=== PATIENT | female | born 1945 | race Caucasian/White ===

== ENCOUNTER 2018-08-28 09:24 | Inpatient (IN) | payer OTHER ==
--- OUTSIDE RECORDS SUMMARY | 2018-08-28 10:43 | XMS REPORT | Continuity of Care Document ---
:1945 Author Organization Interface Problems Problem Status Onset Classification Date Comments Source Date Reported 600 UNITS Active 05/26/20 [facility] 18 500 UNITS Active 11/26/19 [facility] 18 Cramp and spasm 11/05/19 02/06/2018 [facility] 18 REFILL 2000/40ML Active 11/01/19 [facility] AD: 05/05/18 18 Other muscle 08/29/19 12/02/2017 [facility] spasm 18 REFILL 2000/40ML Active 05/16/20 [facility] AD: 11/13/17 17 BOTOX 600 UNITS Active 02/12/20 [facility] 17 5 WEEK F/U Active 11/13/19 [facility] 17 2000/40 Active 11/12/19 [facility] (07/11/2017) 17 4 MONTH F/U Active 11/06/19 [facility] 17 F/U Active 06/04/20 [facility] 16 500 UNITS BOTOX Active 05/11/20 [facility] 16 2000/40 Active 11/14/19 [facility] 16 2000/40ML Active 05/08/20 [facility] 15 600 U Active 07/12/20 [facility] 14 500/40ML Active 04/22/20 [facility] 14 EVAL Active 02/27/20 [facility] 14 PUMP REFILL Active 01/05/20 [facility] 14 500/40 Active 10/31/19 [facility] 14 NEED FACE TO Active 10/19/19 [facility] FACE WC 14 EVAL/FORMER TAS 300 UNITS Active 08/31/19 [facility] 14 POST D/C F/U Active 02/29/20 [facility] APPT - NO ORDERS 13 WRITTEN 400 UNITS Active 01/26/20 [facility] 13 BRAIN INJURY Active 01/19/20 [facility] 13 SPASTICITY Active 12/12/19 [facility] 13 ITB TRIAL Active 08/23/19 [facility] 13 Anxiety Active 08/01/19 Problem 08/27/2018 [facility] 13 OPID [place] Irregular heart Active 08/01/19 Problem 08/27/2018 [facility] beat 13 OPID [place] Skin allergy Resolved 08/01/19 Problem 08/27/2018 [facility] 13 OPID [place] Urinary tract Active 08/01/19 Problem 08/27/2018 [facility] infection 13 OPID [place] Anxiety Active 08/01/19 Problem 03/04/2013 [facility] 13 Irregular heart Active 08/01/19 Problem 03/04/2013 [facility] beat 13 Skin allergy Resolved 08/01/19 Problem 03/04/2013 [facility] 13 Urinary tract Active 08/01/19 Problem 03/04/2013 [facility] infection 13 UNITS Active 09/06/19 [facility] 12 FU Active 08/27/19 [facility] 12 Neurogenic Active 01/22/20 Problem 08/27/2018 [facility] bladder 09 OPID [place] NEUROGENIC Active 12/31/19 [facility] BLADDER 09 W/INCONTINENCE ANOXIC BRAIN Active 08/01/19 [facility] INJURY 342.1 01 WHEELCHAIR FINAL Active 08/01/19 [facility] FITTING 01 Anoxic brain Active Problem 08/27/2018 [facility] injury OPID [place] Back pain Active Problem 08/27/2018 [facility] OPID [place] Cardiac arrest Resolved Problem 08/27/2018 [facility] OPID [place] Fibroids Resolved Problem 08/27/2018 [facility], OPID [place] Incontinence Active Problem 08/27/2018 [facility], OPID [place] Migraine Active Problem 08/27/2018 [facility] OPID [place] Major depressive Active Problem 08/27/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[facility] disorder, OPID recurrent, [place] moderate Pneumonia Resolved Problem 08/27/2018 [facility] OPID [place] Sleep apnea Resolved Problem 08/27/2018 [facility] OPID [place] Spasticity Active Problem 08/27/2018 [facility] OPID [place] Weakness Active Problem 08/27/2018 [facility], OPID [place] Unspecified 02/06/2018 [facility] intracranial injury without loss of consciousness, sequela Anoxic brain 12/02/2017 [facility] damage, not elsewhere classified 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 Anoxic brain Active Problem 03/04/2013 [facility] injury Back pain Active Problem 03/04/2013 [facility] Cardiac arrest Resolved Problem 03/04/2013 [facility] Fibroids Resolved Problem 03/04/2013 [facility] Incontinence Active Problem 03/04/2013 [facility] Migraine Active Problem 03/04/2013 [facility] Pneumonia Resolved Problem 03/04/2013 [facility] Weakness Active Problem 03/04/2013 [facility] Sleep apnea Resolved Problem 03/04/2013 [facility] SPASM OF MUSCLE Active [facility] ABN INVOLUN Active [facility] MOVEMENT NEC BRAIN INJURY NEC Active [facility] ANOXIC BRAIN Active [facility] DAMAGE NEUROGENIC Active [facility] BLADDER NOS FOLLOW-UP EXAM Active [facility] NOS SYMBOLIC Active [facility] DYSFUNCTION NEC PARAPLEGIA NOS Active [facility] DEPRESSIVE Active [facility] DISORDER NEC OTHER MUSCLE Active [facility] SPASM OTHER ABNORMAL Active [facility] INVOLUNTARY MOVEMENTS ANOXIC BRAIN Active [facility] DAMAGE, NOT ELSEWHERE CLASS MAJOR DEPRESSIVE Active [facility] DISORDER, SINGLE EPISOD CRAMP AND SPASM Active [facility] ANXIETY Active [facility] DISORDER, UNSPECIFIED ANXIETY DISORDER Active [facility] DUE TO KNOWN PHYSIOLOGI Medications Medication Details Route Status Patient Ordering Order Source Instructions Provider Date Botulinum Toxin 600 unit, Inactive 08/25/ [facility] Type A Route: IM, 2018 ONCALL, Dosing Weight 64.091, kg, Start date: 08/25/18 12:00:00 HEAD BUYER TOBACCO, Duration: 30 day, Stop date: 09/24/18 11:59:00 [employer] BU[employer] TOBACCO Baclofen 2 MG/ML 408.4 Active 12/09/ [facility] Injection mcg/day, 2018 INTRATHECAL, Continuous, 0 Refill(s) Botulinum Toxin 600 unit, Inactive 08/26/ [facility] Type A Route: IM, 2017 ONCALL, Dosing Weight 66.818, kg, Start date: 08/26/17 11:00:00 HEAD BUYER TOBACCO, Duration: 30 day, Stop date: 09/25/17 10:59:00 HEAD BU[employer]ER TOBACCO Botulinum Toxin 600 unit, Inactive 05/23/ [facility] Type A Route: IM, 2016 ONCALL, Dosing Weight 67.727, kg, Start date: 05/23/17 15:00:00 CDT, Duration: 30 day, Stop date: 06/22/17 13:59:00 [employer] TOBACCO escitalopram 10 10 mg=1 tab, Active 05/23/ [facility] mg oral tablet PO, Daily, # 2016 90 tab, 0 Refill(s) darifenacin 15 15 mg=1 tab, Active 05/23/ [facility] mg oral tablet, PO, Daily, # 2017 extended release 90 tab, 0 Refill(s) escitalopram 10 10 mg=1 tab, No Longer 02/22/ [facility] mg oral tablet PO, Daily, # Active 2016 90 tab, 3 Refill(s), Pharmacy: [facility] Botulinum Toxin 600 unit, Inactive [facility] Type A Route: IM, 2016 ONCALL, Dosing Weight 70.455, kg, Start date: 02/11/17 11:00:00 CDT, Duration: 30 day, Stop date: 03/13/17 10:59:00 CDT darifenacin 7.5 7.5 mg=1 Active [facility] mg oral tablet, tab, PO, 2017 extended release BID, # 30 tab, 0 Refill(s) oxybutynin 10 mg 10 mg=1 tab, Active [facility] oral tablet, PO, Daily, 0 2016 extended release Refill(s) Botulinum Toxin 500 unit, Inactive [facility] Type A Route: IM, 2016 ONCALL, Dosing Weight 70.455, kg, Start date: 11/12/16 11:00:00 CDT, Duration: 30 day, Stop date: 12/12/16 10:59:00 CDT levothyroxine 50 50 Active [facility] mcg (0.05 mg) microgram=1 2017 oral tablet tab, PO, Daily, # 30 tab, 0 Refill(s) oxybutynin 15 mg 15 mg=1 tab, Active [facility] oral tablet, PO, Daily, # 2017 extended release 30 tab, 0 Refill(s) Escitalopram 10 10 mg=1 tab, Active 08/14/ [facility] MG Oral Tablet PO, Daily, # 2017 [Lexapro] 90 tab, 1 Refill(s), Pharmacy: [facility] Escitalopram 10 10 mg=1 tab, No Longer 08/13/ [facility] MG Oral Tablet PO, Daily, # Active 2017 [Lexapro] 90 tab, 0 Refill(s), Pharmacy: [facility] Botulinum Toxin 500 unit, Inactive [facility] Type A Route: IM, 2016 ONCALL, Dosing Weight 70.455, kg, Start date: 08/13/16 11:00:00 HEAD BUYER TOBACCO, Duration: 30 day, Stop date: 09/12/16 10:59:00 HEAD BUYER TOBACCO Divalproex 125 mg=1 Active [facility] Sodium 125 MG tab, PO, 2016 Enteric Coated BID, # 60 Tablet tab, 2 Refill(s), Pharmacy: [facility] Divalproex 250 mg=1 Active [facility] Sodium 250 MG tab, PO, 2015 Enteric Coated BID, # 180 Tablet tab, 2 Refill(s), Pharmacy: [facility] [place] Claritin 10 mg, PRN, Active [facility] 0 Refill(s) 2015 Aleve Caplet 220 mg, PO, Active [facility] PRN, 0 2015 Refill(s) Botulinum Toxin 600 unit, Inactive [facility] Type A Route: IM, 2015 ONCJULIA, Dosing Weight 64.091, kg, Start date: 05/10/16 16:00:00 CDT, Duration: 30 day, Stop date: 06/09/16 14:59:00 HEAD BUYER TOBACCO onabotulinumtoxi 600 unit, Inactive [facility] nA Route: IM, 2015 ONCALL, Dosing Weight 57.273, kg, Start date: 02/06/16 12:00:00 CDT, Duration: 30 day, Stop date: 03/07/16 11:59:00 CDT Escitalopram 10 10 mg=1 tab, Active [facility] MG Oral Tablet PO, Daily, # 2016 [Lexapro] 90 tab, 2 Refill(s), Pharmacy: [facility] Divalproex 250 mg=1 Active [facility] Sodium 250 MG tab, PO, 2016 Enteric Coated BID, # 180 Tablet tab, 2 Refill(s), Pharmacy: [facility] atorvastatin 20 20 mg=1 tab, Active 02/05/ [facility] mg oral tablet PO, Bedtime, 2016 # 30 tab, 0 Refill(s) amantadine 100 100 mg=1 Active [facility] mg oral capsule cap, PO, 2016 Daily, # 90 cap, 4 Refill(s), Pharmacy: [facility] Divalproex 250 mg=1 Active [facility] Sodium 250 MG tab, PO, 2016 Enteric Coated BID, # 180 Tablet tab, 2 Refill(s), Pharmacy: [facility] Escitalopram 10 10 mg=1 tab, Active [facility] MG Oral Tablet PO, Daily, # 2016 [Lexapro] 90 tab, 2 Refill(s), Pharmacy: [facility] Alprazolam 0.25 0.25 mg=1 Active [facility] MG Oral Tablet tab, PO, PRN 2015 anxiety, stress, # 1 tab, 0 Refill(s) onabotulinumtoxi 600 unit, Inactive [facility] nA Route: IM, 2015 ONCALL, Dosing Weight 55.455, kg, Start date: 10/31/15 11:00:00, Duration: 30 day, Stop date: 11/30/15 10:59:00 onabotulinumtoxi 600 unit, Inactive [facility] nA Route: IM, 2014 ONCALL, Dosing Weight 55.455, kg, Start date: 07/18/15 10:00:00, Duration: 30 day, Stop date: 08/17/15 9:59:00 Alprazolam 0.25 0.25 mg=1 No Longer [facility] MG Oral Tablet tab, PO, Active 2014 [Xanax] Daily, PRN as needed for anxiety, Give before next botulinum toxin injections., # 5 tab, 0 Refill(s) Escitalopram 10 10 mg=1 tab, Active [facility] MG Oral Tablet PO, Daily, # 2015 [Lexapro] 90 tab, 2 Refill(s), Pharmacy: [facility] Divalproex 250 mg=1 Active [facility] Sodium 250 MG tab, PO, 2015 Enteric Coated BID, # 180 Tablet tab, 2 Refill(s), Pharmacy: [facility] amantadine 100 100 mg=1 Active [facility] mg oral capsule cap, PO, 2015 Daily, # 90 cap, 2 Refill(s), Pharmacy: [facility] onabotulinumtoxi 600 unit, Inactive [facility] nA Route: IM, 2014 ONCALL, Dosing Weight 58.182, kg, Start date: 04/18/15 10:00:00, Duration: 30 day, Stop date: 05/18/15 9:59:00 donepezil 10 mg 10 mg=1 tab, Active [facility] oral tablet PO, Daily, # 2015 30 tab, 2 Refill(s), Pharmacy: [facility] onabotulinumtoxi 600 unit, Inactive [facility] nA Route: IM, 2014 ONCALL, Dosing Weight 61.818, kg, Start date: 01/10/15 16:00:00, Duration: 30 day, Stop date: 02/09/15 15:59:00 onabotulinumtoxi 600 unit, Inactive [facility] nA Route: IM, 2014 ONCALL, Dosing Weight 61.364, kg, Start date: 10/11/14 11:00:00, Duration: 30 day, Stop date: 11/10/14 10:59:00 donepezil 5 mg 5 mg=1 tab, Active [facility] oral tablet PO, Daily, # 2015 90 tab, 2 Refill(s), Pharmacy: [facility] divalproex 250 mg=1 Active [facility] sodium 250 mg tab, PO, 2014 oral enteric BID, # 180 coated tablet tab, 2 Refill(s), Pharmacy: [facility] amantadine 100 100 mg=1 Active [facility] mg oral capsule cap, PO, 2015 Daily, # 90 cap, 2 Refill(s), Pharmacy: [facility] Escitalopram 10 10 mg=1 tab, Active [facility] MG Oral Tablet PO, Daily, # 2015 [Lexapro] 90 tab, 2 Refill(s), Pharmacy: [facility] oxybutynin 10 mg 10 mg=1 tab, Active [facility] oral tablet, PO, Daily, # 2015 extended release 30 tab, 0 Refill(s) divalproex 250 mg=1 Inactive [facility] sodium 250 mg tab, PO, 2015 oral enteric BID, # 90 coated tablet tab, 0 Refill(s) onabotulinumtoxi 500 unit, Inactive [facility] nA Route: IM2013 Drug form: INJ, ONCALL, Dosing Weight 57.273, kg, Start date: 07/12/14 10:00:00, Duration: 30 day, Stop date: 08/11/14 9:59:00Notes : "TO BE RECONSTITUTE D AND ADMINISTERED ONLY BY A PHYSICIAN" Reconstitute with preservative free NS only. Stability=4 hours after reconstituti on. (Same As: Botox) donepezil 5 mg 5 mg=1 tab, Active 06/21/ [facility] oral tablet PO, Daily, # 2013 90 tab, 2 Refill(s), Pharmacy: [facility]/pharmacy #[id number] Escitalopram 10 10 mg=1 tab, Active [facility] MG Oral Tablet PO, Daily, # 2013 [Lexapro] 90 tab, 3 Refill(s), Pharmacy: [facility]/pharmacy #[id number] donepezil 5 mg 5 mg=1 tab, Active 04/05/ [facility] oral tablet PO, Daily, # 2013 30 tab, 1 Refill(s), Pharmacy: [facility]/pharmacy #[id number] divalproex 500 mg=1 Active [facility] sodium 500 mg tab, PO, 2013 oral enteric BID, # 180 coated tablet tab, 3 Refill(s), Pharmacy: [facility]/pharmacy #[id number] sodium chloride 20 mL, Inactive [facility] [place] [facility] Start date: 04/05/14 10:00:00, Duration: 1 doses or timesNotes: preservative free. onabotulinumtoxi 600 unit, Inactive [facility] nA Route: IM2013 Drug form: INJ, ONCALL, Dosing Weight 57.273, kg, Start date: 04/05/14 10:00:00, Duration: 1 doses or timesNotes: "TO BE RECONSTITUTE D AND ADMINISTERED ONLY BY A PHYSICIAN&qu ot; Reconstitute with preservative free NS only. Stability=4 hours after reconstituti on. (Same As: Botox) Pass through med: charges in 1 unit increments. donepezil 5 mg 5 mg, PO, Inactive 04/05/ [facility] oral tablet Daily, # 30 2013 tab, 0 Refill(s) darifenacin 7.5 7.5 mg=1 Active 03/28/ [facility] mg oral tablet, tab, PO, 2013 extended release Daily, # 30 tab, 0 Refill(s) divalproex 500 mg, PO, Active 02/13/ [facility] sodium delayed BID, 0 2014 release Refill(s) Escitalopram 20 20 mg=1 tab, Active 02/13/ [facility] MG Oral Tablet PO, Daily, # 2014 [Lexapro] 30 tab, 0 Refill(s) Escitalopram 20 20 mg=1 tab, Active 01/04/ [facility] MG Oral Tablet PO, Daily, # 2014 [Lexapro] 30 tab, 3 Refill(s) pravastatin 40 40 mg=1 tab, Active 01/04/ [facility] mg oral tablet PO, Bedtime, 2013 # 30 tab, 0 Refill(s) LORAzepam 0.5 mg 0.25 mg, 0.5 PO Active [place] 03/02/ [facility] oral tablet tab, PO, 2012 Bedtime, 15 tab, Substitution Allowed LORAzepam 0.5 mg 0.5 mg, 1 PO Active [place] 03/02/ [facility] oral tablet tab, PO, 2012 QAM, 30 tab, Substitution Allowed acetaminophen 650 mg, 2 PO Active [place] 03/02/ [facility] 325 mg oral tab, PO, 2012 tablet Q4H, PRN, 168 tab, as needed for pain, Substitution Allowed, TAB senna 8.6 mg 25.8 mg, 3 PO Active [place] 03/02/ [facility] oral tablet tab, PO, 2012 Daily, PRN, 90 tab, Constipation , Substitution Allowed, Maintenance, TAB fexofenadine 60 180 mg, 3 PO Active [place] 03/02/ [facility] mg oral tablet tab, PO, 2012 Daily, 90 tab, Substitution Allowed, TAB atorvastatin 20 10 mg, 0.5 PO Active [place] 03/02/ [facility] mg oral tablet tab, PO, 2012 Bedtime, 15 tab, Substitution Allowed, TAB amantadine 100 100 mg, 1 PO Active [place] 03/02/ [facility] mg oral capsule cap, PO, 2012 BID-02-09, 60 cap, Substitution Allowed, CAP Vitamin B 1 cap, PO, PO Active [place] 03/02/ [facility] Complex oral Daily, 30 2012 capsule cap, Substitution Allowed, Maintenance, CAP LORAzepam 0.5 mg 0.25 mg, 0.5 PO No Longer [place]ago[place]lov[place] 03/02/ [facility] oral tablet tab, PO, Active 2012 BID, 30 tab, Substitution Allowed, TAB Estrace Vaginal 1 appl, TOP, TOP Active Dragojlov[place] 03/02/ [facility] Cream 0.1 mg/g Every Other 2012 Day, 30 gm, Substitution Allowed, CRM escitalopram 20 10 mg, 0.5 PO Active Drago[place]lov[place] 03/02/ [facility] mg oral tablet tab, PO, 2012 Bedtime, 15 tab, Substitution Allowed, TAB docusate sodium 100 mg, 1 PO Active Dr[place] 03/02/ [facility] 100 mg oral cap, PO, 2012 capsule BID, 60 cap, Substitution Allowed, CAP baclofen 0.5 151.68 mcg, INTRATHECA Active Dragojlovic 03/02/ [facility] mg/mL INTRATHECAL, L 2012 intrathecal Continuous, solution PRN, 1 unit, Other -See Comment, Substitution Allowed, INJ Ativan 0.25 mg, 0.5 PO No Longer [place] 02/25/ [facility] tab, Route: Active 2012 PO, Drug form: TAB, Daily, Dosing Weight 51.818, kg, PRN as needed for anxiety, Start date: 02/25/13 9:43:00, Duration: 30 day, Stop date: 03/27/13 9:42:00 [place] 24 Hour 180 mg, 3 PO No Longer [place] 02/23/ [facility] Allergy tab, Route: Active 2012 PO, Drug form: TAB, Daily, Dosing Weight 51.818, kg, Start date: 02/23/13 8:30:00, Duration: 60 day, Stop date: 04/23/13 8:30:00 mirabegron mirabegron, PO No Longer [place] 02/21/ [facility] 25 mg, Active 2012 Route: PO, Daily, 02/21/13 8:30:00, Duration: 90 day, Stop date: 05/21/13 8:30:00 amantadine 100 mg, 1 PO No Longer [place] 02/20/ [facility] cap, Route: Active 2012 PO, Drug form: CAP, BID-02-09, Dosing Weight 51.818, kg, Start date: 02/20/13 12:00:00, Duration: 60 day, Stop date: 04/21/13 7:00:00 BD Normal Saline 10 mL, IV No Longer [place] [facility] Flush Route: IV, Active 2012 Drug Form: INJ, PRN, PRN Line Flush, Start date: 02/19/13 15:54:00, Duration: 60 day, Stop date: 04/20/13 15:53:00 senna 8.6 mg 25.8 mg, 3 PO No Longer [place] [facility] oral tablet tab, Route: Active 2012 PO, Drug Form: TAB, Dosing Weight 51.818, kg, Daily, PRN Constipation , Start date: 02/18/13 11:25:00, Duration: 90 day, Stop date: 05/19/13 11:24:00 Claritin 10 mg, 1 PO No Longer [place] [facility] tab, Route: Active 2012 PO, Drug form: TAB, Daily, Dosing Weight 51.818, kg, Start date: 02/18/13 8:30:00, Duration: 90 day, Stop date: 05/18/13 8:30:00 bisacodyl 10 mg, 1 VA No Longer [place] [facility] supp, Route: Active 2012 VA, Drug form: SUPP, ONCE, Dosing Weight 51.818, kg, Start date: 02/16/13 13:29:00, Stop date: 02/16/13 13:29:00 amantadine 100 mg, 1 PO No Longer [place] [facility] cap, Route: Active 2012 PO, Drug form: CAP, Daily, Dosing Weight 51.818, kg, Start date: 02/16/13 8:30:00, Duration: 60 day, Stop date: 04/16/13 8:30:00 docusate sodium 100 mg, 1 PO No Longer [place] [facility] 100 mg oral cap, Route: Active 2012 capsule PO, Drug form: CAP, BID, Dosing Weight 51.818, kg, Start date: 02/15/13 22:01:00, Duration: 90 day, Stop date: 05/16/13 21:00:00 [place] 5/325 oral 1 tab, PO No Longer [place] [facility] tablet Route: PO, Active 2012 Drug Form: TAB, Dosing Weight 51.818, kg, Q6H, PRN Pain Score 6-10, Start date: 02/15/13 13:53:00, Duration: 30 day, Stop date: 03/17/13 13:52:00 senna 8.6 mg 8.6 mg, 1 PO No Longer [place] [facility] oral tablet tab, Route: Active 2012 PO, Drug Form: TAB, Dosing Weight 51.818, kg, Daily, PRN Constipation , Start date: 02/15/13 9:06:00, Duration: 90 day, Stop date: 05/16/13 9:05:00 amantadine 100 mg, 1 PO No Longer [place] [facility] cap, Route: Active 2012 PO, Drug form: CAP, QAM, Dosing Weight 51.818, kg, Start date: 02/15/13 6:30:00, Duration: 60 day, Stop date: 04/15/13 6:30:00 [place] 5/325 oral 1 tab, PO No Longer [place] [facility] tablet Route: PO, Active 2012 Drug Form: TAB, Dosing Weight 51.818, kg, ONCE, Start date: 02/14/13 22:55:00, Stop date: 02/14/13 22:55:00 Claritin 10 mg, 1 PO No Longer [place] [facility] tab, Route: Active 2012 PO, Drug form: TAB, Daily, Dosing Weight 51.818, kg, Start date: 02/14/13 18:30:00, Duration: 90 day, Stop date: 05/15/13 8:30:00 Tylenol 650 mg, 2 PO No Longer [place] [facility] tab, Route: Active 2012 PO, Drug form: TAB, Q4H, Dosing Weight 51.818, kg, PRN Pain Score 1-5, Start date: 02/13/13 21:14:00, Duration: 60 day, Stop date: 04/14/13 21:00:00 Lexapro 10 mg, 0.5 PO No Longer [place] 02/14/ [facility] tab, Route: Active 2012 PO, Drug form: TAB, Bedtime, Dosing Weight 51.818, kg, Start date: 02/13/13 21:00:00, Duration: 90 day, Stop date: 05/13/13 21:00:00 Estrace Vaginal 1 appl, TOP No Longer [place] 02/14/ [facility] Cream 0.1 mg/g Route: TOP, 2012 Drug form: CRM, Every Other Day, Dosing Weight 51.818, kg, Start date: 02/13/13 21:00:00, Duration: 90 day, Stop date: 05/12/13 21:00:00 pravastatin 40 mg, PO No Longer [place] 02/13/ [facility] Route: PO, Active 2012 Drug form: TAB, Daily, Dosing Weight 51.818, kg, Start date: 02/13/13 8:30:00, Duration: 90 day, Stop date: 05/13/13 8:30:00 B Complex 100 1 tab, PO No Longer [place] 02/13/ [facility] Route: PO, Active 2012 Drug Form: TAB, Dosing Weight 51.818, kg, Daily, Start date: 02/13/13 8:30:00, Duration: 90 day, Stop date: 05/13/13 8:30:00 Lexapro 10 mg, 0.5 PO No Longer [place] 02/13/ [facility] tab, Route: Active 2012 PO, Drug form: TAB, Daily, Dosing Weight 51.818, kg, Start date: 02/13/13 8:30:00, Duration: 90 day, Stop date: 05/13/13 8:30:00 baclofen 90.04 INTRATHECA No Longer [place] 02/13/ [facility] mcg/day, L Active 2012 Route: INTRATHECAL, Drug form: INJ, Daily, Dosing Weight 51.818, kg, Start date: 02/13/13 8:30:00, Duration: 90 day, Stop date: 05/13/13 8:30:00 Ativan 0.25 mg, 0.5 PO No Longer [place] 02/13/ [facility] tab, Route: Active 2012 PO, Drug form: TAB, BID, Dosing Weight 51.818, kg, Start date: 02/12/13 22:00:00, Duration: 90 day, Stop date: 05/13/13 21:00:00 Lipitor 10 mg, 0.5 PO No Longer [place] [facility] tab, Route: Active 2012 PO, Drug form: TAB, Bedtime, Start date: 02/12/13 21:00:00, Duration: 90 day, Stop date: 05/12/13 21:00:00 mirtazapine 7.5 mg, 0.5 PO No Longer [place] [facility] tab, Route: Active 2012 PO, Drug form: TAB, Bedtime, Dosing Weight 51.818, kg, Start date: 02/12/13 21:00:00, Duration: 90 day, Stop date: 05/12/13 21:00:00 metoprolol 12.5 mg, 0.5 PO No Longer Dragojlov[place] [facility] tartrate tab, Route: Active 2012 PO, Drug form: TAB, Q12H, Dosing Weight 51.818, kg, Start date: 02/12/13 21:00:00, Duration: 60 day, Stop date: 04/14/13 9:00:00 Ativan 0.5 mg, 1 PO No Longer [place] [facility] tab, Route: Active 2012 PO, Drug form: TAB, BID, Dosing Weight 51.818, kg, Start date: 02/12/13 21:00:00, Duration: 90 day, Stop date: 05/13/13 8:30:00 calcium-vitamin 2 tab, CHEW No Longer [place] [facility] D 500 mg-400 Route: CHEW, Active 2012 intl units oral Drug Form: tablet, chewable CHEWTAB, Dosing Weight 51.818, kg, BID, Start date: 02/12/13 21:00:00, Duration: 90 day, Stop date: 05/13/13 8:30:00 baclofen Route: INTRATHECA No Longer [place] [facility] INTRATHECAL, L Active 2012 Drug form: INJ, Continuous, PRN Other -See Comment, Start date: 02/12/13 18:16:00, Stop date: 04/13/13 18:15:00 docusate sodium 100 mg, 1 PO No Longer [place] 07/15/ [facility] 100 mg oral cap, Route: 2012 capsule PO, Drug form: CAP, Every Other Day, Dosing Weight 51.818, kg, PRN as needed for constipation , Start date: 02/12/13 16:01:00, Duration: 90 day, Stop date: 05/13/13 16:00:00 Claritin 10 mg, 1 PO No Longer [place] 02/12/ [facility] tab, Route: 2012 PO, Drug form: TAB, Daily, Dosing Weight 51.818, kg, PRN as needed for allergy symptoms, Start date: 02/12/13 12:32:00, Duration: 90 day, Stop date: 05/13/13 12:31:00 mirtazapine 7.5 7.5 mg, 1 PO No Longer [place] 02/12/ [facility] mg oral tablet tab, PO, 2012 Bedtime, 30 tab, Substitution Allowed, TAB Claritin 10 mg 10 mg, 1 PO No Longer [place] 02/12/ [facility] oral tablet tab, PO, 2012 Daily, PRN, 90 tab, as needed for allergy symptoms, Substitution Allowed, TAB B-Complex SR Substitution No Longer [place] 02/12/ [facility] oral tablet, Allowed, 2012 extended release Maintenance phenytoin 777.27 mg, IVP No Longer [place] 02/12/ [facility] 15.55 mL, 2012 Route: IVP, Drug form: INJ, PRN, Dosing Weight 51.818, kg, PRN Seizure, Start date: 02/12/13 12:20:00, Duration: 60 day, Stop date: 04/13/13 12:19:00 LORAzepam 2 mg, 1 mL, IVP No Longer [place] 02/12/ [facility] Route: IVP, 2012 Drug form: INJ, PRN, Dosing Weight 51.818, kg, PRN Seizure, Start date: 02/12/13 12:20:00, Duration: 60 day, Stop date: 04/13/13 12:19:00 phenobarbital 1,036.36 mg, IVP No Longer [place] 02/12/ [facility] 15.94 mL, 2012 Route: IVP, Drug form: INJ, PRN, Dosing Weight 51.818, kg, PRN Seizure, Start date: 02/12/13 12:20:00, Duration: 60 day, Stop date: 04/13/13 12:19:00 docusate sodium 100 mg, PO, PO Active [facility] 100 mg oral BID, PRN, 20 2012 capsule cap, Constipation , Substitution Allowed Ativan 0.5 mg BID, Active [facility] oral tablet Substitution 2012 Allowed metoprolol 25 mg 25 mg, 1 PO Active [facility] oral tablet tab, PO, 2012 BID, 180 tab, Substitution Allowed, TAB pravastatin 20 20 mg, 1 PO Active [facility] mg oral tablet tab, PO, 2012 Daily, 30 tab, Substitution Allowed, TAB mirtazapine 7.5 PO, Bedtime, PO Active [facility] mg oral tablet Substitution 2011 Allowed Estrace Vaginal TOP, Every TOP Active [facility] Cream 0.1 mg/g Other Day, 2011 Substitution Allowed Detrol LA 4 mg 4 mg, 1 cap, PO Active [facility] oral capsule, PO, Daily, 2011 extended release 30 cap, Substitution Allowed Toviaz 4 mg, Active [facility] Substitution 2011 Allowed, once a dayonce a day Flomax 0.4 mg 0.4 mg, 1 PO Active [facility] oral capsule cap, PO, 2011 Daily, 90 cap, Substitution Allowed, CAP Unknown Home Substitution Active [facility] Medication Allowed 2011 cranberry oral Substitution Active [facility] capsule Allowed, 2011 Maintenance VESIcare 5 mg 5 mg, 1 tab, PO Active [facility] oral tablet PO, Daily, 2011 90 tab, Substitution Allowed, TAB Lexapro 10 mg 10 mg, 1 PO No Longer Tastard [facility] oral tablet tab, PO, Active 2011 Daily, 90 tab, 4, 4, Substitution Allowed, TAB Lexapro 10 mg 10 mg, 1 PO Active [facility] oral tablet tab, PO, 2011 Daily, 90 tab, Substitution Allowed, TAB LORAzepam Substitution Active [facility] Allowed 2011 LORAzepam 0.5 mg 0.5 mg, 1 PO No Longer [facility] oral tablet tab, PO, Active 2011 TID, PRN, Anxiety, Substitution Allowed, TAB Cymbalta 30 mg 30 mg, 1 PO No Longer Tastard [facility] oral delayed cap, PO, Active 2011 release capsule Daily, 7 cap, Substitution Allowed Nuedexta oral 1 cap, PO, PO No Longer Tastard [facility] capsule Daily, 90 Active 2011 cap, 4, 4, Substitution Allowed, Maintenance carbidopa-levodo 1 tab, PO, PO Active 08/27/ [facility] pa 50 mg-200 mg BID, 90 tab, 2011 oral tablet, Substitution extended release Allowed, Maintenance Risperdal 0.25 PO, 30, 10, PO Active 04/20/ [facility] mg oral tablet Substitution 2010 Allowed Allergies, Adverse Reactions, Alerts Substance Category Reaction Severity Reaction Status Date Comments Source type Reported Immunizations Immunization Date Given Site Status Last Updated Comments Source Results Order Name Results Value Reference Date Interpretation Comments Source Range Brain wo Brain wo Patient Name: GINGER FUENTES 01/12 - OPID contrast contrast MRI /2016 - [facility] : 1945; Age: 71 years y/o Female MR: [id number] Read by: Luther Hartman MD Dictated Date/time: 01/12/17 15:01 Electronically Signed by: Luther Hartman MD 01/12/17 17:12 FINAL REPORT Study: Brain wo contrast MRI 01/12/2017 1:14 PM CDT Ordering Physician: Felix Hanson MD Clinical Indication: 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 CONTRAST: None FINDINGS: BRAIN PARENCHYMA: The brain parenchyma has normal signal with normal garnett- white junction, sulci, and gyri. There is no mass effect or midline shift. There is no extra-axial fluid collection or intrapare nchymal hemorrhage. The corpus callosum appears normal. The white matter, basal ganglia, and posterior fossa, including the brainstem, demonstrate mild to moderate chronic small vessel changes. There is no diffusion weighted imaging or ADC map abnormality to suggest acute/ subacute ischemia. There is no magnetic susceptibility to suggest recent or remote intracranial hemorrhage. CEREBELLOPONTINE REGIONS AND SKULL BASE: The cerebellopontine angles appear unremarkable. The skull base, craniocervical junction, and brainstem are normal. The optic chiasm is normal. The sellar and pineal regions are unremarkable. VENTRICLES: CSF spaces are moderately atrophic. The lateral ventricles, third and fourth ventricles appear unremarkable. The basilar cisterns are normal. VESSELS: The venous sinuses are grossly unremarkable. The expected intracranial flow voids are present. ORBITS, VISUALIZED PARANASAL SINUSES AND MASTOIDS: The visualized orbits are unremarkable. The paranasal sinuses Are unremarkable The mastoid air cells are clear. IMPRESSION: Unremarkable for acute change noncontrast MRI of the brain without stroke, hemorrhage or mass. Moderate atrophy and chronic small vessel ischemic change in the deep structures. There are no intracranial fluid collections. The corticomedullary junction is intact. SL: [id number] Abdomen AP Abdomen AP ABDOMEN RADIOGRAPH ONE VIEW 08/13/2016 AT 1150 HOURS. 08/13 - [facility] DX DX /2016 - CLINICAL HISTORY: Constipation. Assess stool burden. Read by: Vicente Salazar MD Dictated Date/time: 08/13/16 12:11 Electronically Signed by: Vicente Salazar MD 08/13/16 12:13 FINAL REPORT COMPARISON STUDIES: Abdomen CT 02/19/2013. FINDINGS: An AP view of the abdomen was obtained. Moderate volume colonic fecal material diffusely, particularly in the ascending colon with a nonobstructive bowel gas pattern. No pneumatosis or portal venous air. Limited study for free air in a supine film. An infusion pump is identified in the right lower quadrant to be correlated with history. No destructive bone lesion. Clear lung bases. Moderate bilateral SI joint, symphyseal and hip osteoarthritis. IMPRESSION: 1. Moderate volume colonic fecal material diffusely. 2. Nonobstructive bowel gas pattern. SL: [id number] Brain wo Brain wo EXAM: CT BRAIN WITHOUT CONTRAST 03/19 [facility] contrast CT contrast CT /2013 - DATE: 03/19/2014 Read by: Trav Garrido MD Dictated Date/time: 03/19/14 11:20 Electronically Signed by: Trav Garrido MD 03/19/14 11:25 FINAL REPORT INDICATION: Confusion, history of anoxic brain injury TECHNIQUE: Noncontrast axial imaging was obtained from the vertex to the skull base. COMPARISON: CT brain from 09/21/2012 FINDINGS: No hemorrhage, extra-axial collection, or mass effect. Mild prominence of the sulci and ventriculomegaly secondary to volume loss. Ventricular size is not greatly changed with respect to the prior study . Mild microangiopathic changes without evidence of acute infarction. Included paranasal sinuses and mastoid air cells are clear. IMPRESSION: No acute abnormality. Generalized volume loss. HEMATOLOGY Eosinophils 0.2 K/CMM 0.0 - 0.5 / Normal [facility] # /2012 HEMATOLOGY Monocytes # 0.6 K/CMM 0.0 - 0.8 / Normal [facility] /2012 HEMATOLOGY Basophils # 0.1 K/CMM 0.0 - 0.2 / Normal [facility] /2012 HEMATOLOGY Lymphocytes 34.0 % 20.0 - 02/26 Normal [facility] 40.0 /2012 HEMATOLOGY Monocytes 8.2 % 2.0 - 12.0 / Normal [facility] /2012 HEMATOLOGY Segs 54.0 % 45.0 - 02/26 Normal [facility] 75.0 /2012 HEMATOLOGY Segs-Bands # 4.2 K/CMM 1.5 - 8.1 02/26 Normal [facility] /2012 HEMATOLOGY Lymphocytes 2.7 K/CMM 1.0 - 5.5 02/26 Normal [facility] # /2012 HEMATOLOGY Eosinophils 2.9 % 0.0 - 4.0 / Normal [facility] /2012 HEMATOLOGY Basophils 0.9 % 0.0 - 1.0 / Normal [facility] /2012 HEMATOLOGY Hct 35.9 % 36.0 - 02/26 LOW [facility] 48.0 /2012 HEMATOLOGY MCV 91.5 fL 81.0 - 02/26 Normal [facility] 99.0 /2012 HEMATOLOGY Hgb 12.1 g/dL 12.0 - 02/26 Normal [facility] 16.0 /2012 HEMATOLOGY MCHC 33.8 g/dL 32.0 - 02/26 Normal [facility] 36.0 /2012 HEMATOLOGY MCH 30.9 pg 27.0 - 02/26 Normal [facility] 31.0 /2012 HEMATOLOGY Platelet 310 K/CMM 133 - 450 02/26 Normal [facility] /2012 HEMATOLOGY RDW 12.6 % 11.5 - 02/26 Normal [facility] 14.5 /2012 HEMATOLOGY MPV 8.2 fL 7.4 - 10.4 02/26 Normal [facility] /2012 HEMATOLOGY WBC 7.8 K/CMM 3.7 - 10.4 02/26 Normal [facility] HEMATOLOGY RBC 3.93 M/CMM 4.20 - 02/26 LOW [facility] 5.40 CHEMISTRY eGFR 102 02/21 NA 1Result Comment: The eGFR is calculated using the CKD-EPI formula. In most young, healthy individuals the eGFR will be > 90 mL/min/1.73m2. The eGFR declines with age. An eGFR of 60-89 may be normal in [facility] mL/min/1.7 some populations, particularly the elderly, for whom the CKD-EPI formula has not been extensively validated. Use of the eGFR is not recommended in the following populations: 3m2 Individuals with unstable creatinine concentrations, including patients and those with serious co-morbid conditions. Patients with extremes in muscle mass or diet. The data above are obtained from the National Kidney Disease Education Program (NKDEP) which additionally recommends that when the eGFR is used in patients with extremes of body mass index for purposes of drug dosing, the eGFR should be multiplied by the estimated BMI. CHEMISTRY Chloride Lvl 103 meq/L 95 - 109 02/21 Normal [facility] CHEMISTRY Sodium Lvl 143 meq/L 135 - 145 02/21 Normal [facility] CHEMISTRY Potassium 4.1 meq/L 3.5 - 5.1 02/21 Normal [facility] Lv CHEMISTRY Creatinine 0.5 mg/dL 0.5 - 1.4 02/21 Normal [facility] Lv CHEMISTRY Calcium Lvl 8.8 mg/dL 8.5 - 10.5 02/21 Normal [facility] CHEMISTRY CO2 33 meq/L 24 - 32 02/21 HI [facility] CHEMISTRY AGAP 11.1 meq/L 10.0 - 02/21 Normal [facility] 20.0 CHEMISTRY Glucose Lvl 104 mg/dL 70 - 99 02/21 HI 4Interpretive Data: Adult reference range values reflect the clinical guidelines [facility] of the [place] [employer]. CHEMISTRY BUN 15 mg/dL - 02/21 Normal [facility] HEMATOLOGY Basophils # 0.0 K/CMM 0.0 - 0.2 02/20 Normal [facility] HEMATOLOGY Eosinophils 0.2 K/CMM 0.0 - 0.5 02/20 Normal [facility] # /2012 HEMATOLOGY Monocytes # 0.6 K/CMM 0.0 - 0.8 02/20 Normal [facility] HEMATOLOGY Basophils 0.3 % 0.0 - 1.0 02/20 Normal [facility] HEMATOLOGY Segs-Bands # 3.8 K/CMM 1.5 - 8.1 02/20 Normal [facility] /2012 HEMATOLOGY Monocytes 7.6 % 2.0 - 12.0 02/20 Normal [facility] HEMATOLOGY Eosinophils 2.9 % 0.0 - 4.0 02/20 Normal [facility] /2012 HEMATOLOGY Segs 50.9 % 45.0 - 02/20 Normal [facility] 75.0 /2012 HEMATOLOGY Lymphocytes 38.3 % 20.0 - 02/20 Normal [facility] 40.0 HEMATOLOGY Lymphocytes 2.9 K/CMM 1.0 - 5.5 02/20 Normal [facility] # /2012 HEMATOLOGY MPV 8.3 fL 7.4 - 10.4 02/20 Normal [facility] HEMATOLOGY Hgb 12.2 g/dL 12.0 - 02/20 Normal [facility] 16.0 HEMATOLOGY RDW 12.3 % 11.5 - 02/20 Normal [facility] 14.5 HEMATOLOGY Platelet 310 K/CMM 133 - 450 02/20 Normal [facility] HEMATOLOGY MCH 30.1 pg 27.0 - 02/20 Normal [facility] 31.0 HEMATOLOGY MCHC 32.8 g/dL 32.0 - 02/20 Normal [facility] 36.0 HEMATOLOGY WBC 7.5 K/CMM 3.7 - 10.4 02/20 Normal [facility] HEMATOLOGY Hct 37.2 % 36.0 - 02/20 Normal [facility] 48.0 HEMATOLOGY MCV 91.7 fL 81.0 - 02/20 Normal [facility] 99.0 /2012 HEMATOLOGY RBC 4.06 M/CMM 4.20 - 02/20 LOW [facility] 5.40 /2012 Abdomen Abdomen w/wo EXAM: CT of the abdomen with and without contrast dated 02/19/2013. 02/19 - [facility] w/wo contrast CT /2012 - contrast CT HISTORY: Possible left renal mass on ultrasound. Read by: Alan Machado Dictated Date/time: 02/20/13 08:20 Electronically Signed by: Alan Machado MD 02/20/13 08:32 FINAL REPORT COMPARISON: 02/15/2013. TECHNIQUE: Pre and multiphase postcontrast axial images through the abdomen , with sagittal and coronal reformats. FINDINGS: The lung bases show atelectatic changes. A calcified granuloma is noted at the left lung base. Evaluation of the abdomen is slightly suboptimal due to extensive streaking from a right-sided baclofen pump (). Precontrast images show a punctate nonobstructing calculus at the upper pole of the left kidney (). Postcontrast, there is homogeneous enhancement of the bilateral kidneys without evidence of a foca l mass lesion. 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 Delayed images show satisfactory bilateral renal excretion without filling de fects in the opacified collecting systems and the visualized proximal ureters. The visualized liver, gallbladder and biliary system, adrenals, pancreas ( except for mild proximal fatty change) and spleen are unremarkable. The stomach and the visualized bowel and are within normal limits. There are no acute skeletal findings. IMPRESSION: 1. No renal mass identified. Abnormality noted on the prior study most likely presents a dromedary hump. CHEMISTRY AGAP 11.2 meq/L 10.0 - 02/19 Normal [facility] 20.0 CHEMISTRY eGFR 110 02/19 NA 2Result Comment: The eGFR is calculated using the CKD-EPI formula. In most young, healthy individuals the eGFR will be > 90 mL/min/1.73m2. The eGFR declines with age. An eGFR of 60-89 may be normal in [facility] mL/min/1. some populations, particularly the elderly, for whom the CKD-EPI formula has not been extensively validated. Use of the eGFR is not recommended in the following populations: 3m2 Individuals with unstable creatinine concentrations, including patients and those with serious co-morbid conditions. Patients with extremes in muscle mass or diet. The data above are obtained from the National Kidney Disease Education Program (NKDEP) which additionally recommends that when the eGFR is used in patients with extremes of body mass index for purposes of drug dosing, the eGFR should be multiplied by the estimated BMI. CHEMISTRY CO2 31 meq/L 24 - 32 02/19 Normal [facility] /2012 CHEMISTRY Potassium 4.2 meq/L 3.5 - 5.1 02/19 Normal [facility] Lvl CHEMISTRY Creatinine 0.4 mg/dL 0.5 - 1.4 02/19 LOW [facility] Lvl CHEMISTRY Sodium Lvl 142 meq/L 135 - 145 02/19 Normal [facility] CHEMISTRY BUN 17 mg/dL 7 - 22 02/19 Normal [facility] /2012 CHEMISTRY Chloride Lvl 104 meq/L 95 - 109 02/19 Normal [facility] CHEMISTRY Glucose Lvl 104 mg/dL 70 - 99 02/19 HI 5Interpretive Data: Adult reference range values reflect the clinical guidelines [facility] of the [place] [employer]. CHEMISTRY Calcium Lvl 8.4 mg/dL 8.5 - 10.5 02/19 LOW [facility] HEMATOLOGY RBC 3.73 M/CMM 4.20 - 02/19 LOW [facility] 5.40 HEMATOLOGY Hgb 11.6 g/dL 12.0 - 02/19 LOW [facility] 16.0 HEMATOLOGY MPV 8.9 fL 7.4 - 10.4 02/19 Normal [facility] HEMATOLOGY MCHC 34.0 g/dL 32.0 - 02/19 Normal [facility] 36.0 HEMATOLOGY MCH 31.1 pg 27.0 - 02/19 HI [facility] 31.0 HEMATOLOGY Platelet 270 K/CMM 133 - 450 02/19 Normal [facility] HEMATOLOGY MCV 91.2 fL 81.0 - 02/19 Normal [facility] 99.0 HEMATOLOGY WBC 7.4 K/CMM 3.7 - 10.4 02/19 Normal [facility] HEMATOLOGY RDW 12.4 % 11.5 - 02/19 Normal [facility] 14.5 HEMATOLOGY Hct 34.0 % 36.0 - 02/19 LOW [facility] 48.0 /2012 HEMATOLOGY Lymphocytes 3.0 K/CMM 1.0 - 5.5 02/19 Normal [facility] # /2012 HEMATOLOGY Basophils # 0.0 K/CMM 0.0 - 0.2 02/19 Normal [facility] HEMATOLOGY Eosinophils 0.2 K/CMM 0.0 - 0.5 02/19 Normal [facility] # HEMATOLOGY Monocytes # 0.7 K/CMM 0.0 - 0.8 02/19 Normal [facility] HEMATOLOGY Segs 47.9 % 45.0 - 02/19 Normal [facility] 75.0 /2013 HEMATOLOGY Lymphocytes 40.4 % 20.0 - 02/19 HI [facility] 40.0 /2012 HEMATOLOGY Segs-Bands # 3.5 K/CMM 1.5 - 8.1 02/19 Normal [facility] HEMATOLOGY Eosinophils 2.3 % 0.0 - 4.0 02/19 Normal [facility] HEMATOLOGY Monocytes 9.3 % 2.0 - 12.0 02/19 Normal [facility] HEMATOLOGY Basophils 0.1 % 0.0 - 1.0 02/19 Normal [facility] Retroperito Retroperiton EXAM: US RENAL 02/15 - [facility] rafi eal Complete /2012 - Complete US US DATE: 02/15/2013 at 1234 hours. Read by: Dillan Blanc Dictated Date/time: 02/16/13 08:06 Electronically Signed by: Dillan Blanc MD 02/16/13 08:22 FINAL REPORT INDICATION: Urinary incontinence/retention. ADDITIONAL INFORMATION: Last voiding at 1030 hours. COMPARISON: None. TECHNIQUE: Multiplanar grayscale and color Doppler ultrasound images of the kidneys and urinary bladder were obtained. FINDINGS: Kidneys are normal in shape and position without hydronephrosis or cortical thinning. Right kidney is 10.0 x 4.9 x 4.5 cm and left is 10.3 x 5.4 x 4.5 cm. Prominence along the left kidney may relate to a dromedary hump versus renal mass, measuring 2.5 x 2.5 x 2.4 cm. Renal echogenicity is normal. No renal calculi or echogenic focus noted. Urinary bladder wall thickening is in keeping with history of neurogenic bladder and incomplete distension. No bladder calculi are identified. Some debris is identified in the bladder lumen. IMPRESSION: 1. Focal prominence in the mid left kidney may relate to a dromedary hump versus renal mass further characterization with dynamic renal mass protocol MR or CT is recommended. 2. Some debris is identified in the bladder lumen. No bladder calculi. Findings were communicated to Dr. Coe on 02/16/2013 at 0820. Interpreted by Dillan Blanc MD. CHEMISTRY Hgb A1C 5.9 % <=5.6 02/13 HI 11Interpretive Data: The reference range is based on the clinical practice guidelines [facility] of the [place] [employer] for diabetes screening; levels of 5.7%-6.4% are indicative of pre-diabetes. HEMATOLOGY INR 0.99 0.85 - 02/13 Normal 12Interpretive Data: RECOMMENDED RANGES FOR PROTIME INR: [facility] 08.17 2.0-3.0 for most medical and surgical thromboembolic states. 2.5-3.5 for artificial heart valves and recurrent embolism. INR SHOULD BE USED ONLY FOR PATIENTS ON STABLE ANTICOAGULANT THERAPY. HEMATOLOGY PT 13.3 s 12.0 - 02/13 Normal [facility] 14.7 HEMATOLOGY PTT 31.6 s 22.9 - 02/13 Normal 13Interpretiv [facility] 35.8 /2012 e Data: Heparin Therapeutic Range: 57 - 92 Seconds IMMUNOLOGY Prealbumin 22.0 mg/dL 18.0 - 02/13 Normal [facility] 45.0 CHEMISTRY T4 Free 0.92 ng/dL 0.76 - 02/13 Normal [facility] 1.46 CHEMISTRY TSH 3.450 0.360 - 02/13 Normal [facility] uIU/mL 3.740 /2012 CHEMISTRY Magnesium 2.0 mg/dL 1.8 - 2.4 02/13 Normal [facility] Lvl /2012 CHEMISTRY Phosphorus 4.7 mg/dL 2.5 - 4.5 02/13 [facility] CHEMISTRY B/C Ratio 28 6 - 25 02/13 [facility] /2012 CHEMISTRY A/G Ratio 1.5 0.7 - 1.6 02/13 Normal [facility] /2012 CHEMISTRY Globulin 2.8 g/dL 2.0 - 4.0 02/13 Normal [facility] /2012 CHEMISTRY AGAP 10.0 meq/L 10.0 - 02/13 Normal [facility] 20.0 CHEMISTRY eGFR 102 02/13 NA 3Result Comment: The eGFR is calculated using the CKD-EPI formula. In most young, healthy individuals the eGFR will be > 90 mL/min/1.73m2. The eGFR declines with age. An eGFR of 60-89 may be normal in [facility] mL/min/1.7 /2012 some populations, particularly the elderly, for whom the CKD-EPI formula has not been extensively validated. Use of the eGFR is not recommended in the following populations: 3m2 Individuals with unstable creatinine concentrations, including patients and those with serious co-morbid conditions. Patients with extremes in muscle mass or diet. The data above are obtained from the National Kidney Disease Education Program (NKDEP) which additionally recommends that when the eGFR is used in patients with extremes of body mass index for purposes of drug dosing, the eGFR should be multiplied by the estimated BMI. CHEMISTRY AST 14 unit/L 0 - 37 02/13 Normal [facility] CHEMISTRY Total 6.9 g/dL 6.4 - 8.4 02/13 Normal [facility] Protein CHEMISTRY Calcium Lvl 9.4 mg/dL 8.5 - 10.5 02/13 Normal [facility] CHEMISTRY Bili Total 1.6 mg/dL 0.2 - 1.3 02/13 HI [facility] CHEMISTRY CO2 35 meq/L 24 - 32 02/13 HI [facility] CHEMISTRY Glucose Lvl 103 mg/dL 70 - 99 02/13 HI 6Interpretive Data: Adult reference range values reflect the clinical guidelines of the [place] [employer]. CHEMISTRY Sodium Lvl 141 meq/L 135 - 145 02/13 Normal [facility] CHEMISTRY Creatinine 0.5 mg/dL 0.5 - 1.4 02/13 Normal [facility] Lvl CHEMISTRY Chloride Lvl 100 meq/L 95 - 109 02/13 Normal [facility] CHEMISTRY Potassium 4.0 meq/L 3.5 - 5.1 02/13 Normal [facility] Lvl CHEMISTRY BUN 14 mg/dL 7 - 22 02/13 Normal [facility] CHEMISTRY Alk Phos 44 unit/L 39 - 136 02/13 Normal [facility] CHEMISTRY Albumin Lvl 4.1 g/dL 3.5 - 5.0 02/13 Normal [facility] CHEMISTRY ALT 20 unit/L 0 - 65 02/13 Normal [facility] CHEMISTRY LDL 116 mg/dL <=99 02/13 HI 10Interpretiv [facility] e Data: Reference ranges are based on the clinical guidelines of the [employer] National Cholesterol Education Program (ATP III, 2001). CHEMISTRY HDL 59 mg/dL >=61 02/13 LOW 9Interpretive Data: Reference ranges are based on the clinical guidelines of the [employer] National Cholesterol Education Program (ATP III, 2001). CHEMISTRY Trig 116 mg/dL <=149 02/13 Normal 8Interpretive [facility] Data: Reference ranges are based on the clinical guidelines of the [employer] National Cholesterol Education Program (ATP III, 2001). CHEMISTRY Chol 198 mg/dL <=199 02/13 Normal 7Interpretive [facility] Data: Reference ranges are based on the clinical guidelines of the [employer] National Cholesterol Education Program (ATP III, 2001). CHEMISTRY CHD Risk 3.36 3.90 - 02/13 LOW [facility] 5.80 /2012 Microbiolog Culture: 02/13 [facility] y Urine URINALYSIS UA pH 6.0 5.0 - 8.0 02/13 Normal [facility] URINALYSIS UA Spec Grav 1.020 <=1.030 02/13 Normal [facility] URINALYSIS UA Glucose Negative Negative 02/13 Normal [facility] (02/13/2013 06:00:54) URINALYSIS UA Bili Negative Negative 02/13 NA [facility] *NA* (02/13/2013 06:00:54) URINALYSIS UA Ketones Negative Negative 02/13 NA [facility] *NA* (02/13/2013 06:00:54) URINALYSIS UA Color Yellow Yellow 02/13 NA [facility] *NA* (02/13/2013 06:00:54) URINALYSIS UA Turbidity Clear Clear 02/13 Normal [facility] (02/13/2013 06:00:54) URINALYSIS UA Protein Negative Negative 02/13 Normal [facility] (02/13/2013 06:00:54) URINALYSIS UA Leuk Est Trace Negative 02/13 ABN [facility] *ABN* (02/13/2013 06:00:54) URINALYSIS UA Sq Epi Few /LPF Few 02/13 Normal [facility] (02/13/2013 06:00:54) URINALYSIS Micro? Performed 02/13 Normal [facility] (02/13/2013 06:00:54) URINALYSIS UA Bacteria Occasional /HPF None Seen 02/13 Normal [facility] (02/13/2013 06:00:54) URINALYSIS UA WBC 3-5 /HPF None Seen 02/13 Normal [facility] (02/13/2013 06:00:54) URINALYSIS UA Blood Negative Negative 02/13 Normal [facility] (02/13/2013 06:00:54) URINALYSIS UA 0.2 EU/dL 0.1 - 1.0 02/13 Normal [facility] Urobilinogen URINALYSIS UA Nitrite Negative Negative 02/13 Normal [facility] /2012 (02/13/2013 06:00:54) CHEMISTRY AGAP 12.2 meq/L 10.0 - 09/21 Normal [facility] 20.0 CHEMISTRY eGFR 110 09/21 NA 1Result Comment: The eGFR is calculated using the CKD-EPI formula. In most young, healthy individuals the eGFR will be > 90 mL/min/1.73m2. The eGFR declines with age. An eGFR of 60-89 may be normal in [facility] mL/min/1.7 some populations, particularly the elderly, for whom the CKD-EPI formula has not been extensively validated. Use of the eGFR is not recommended in the following populations: 3m2 Individuals with unstable creatinine concentrations, including patients and those with serious co-morbid conditions. Patients with extremes in muscle mass or diet. The data above are obtained from the National Kidney Disease Education Program (NKDEP) which additionally recommends that when the eGFR is used in patients with extremes of body mass index for purposes of drug dosing, the eGFR should be multiplied by the estimated BMI. CHEMISTRY Sodium Lvl 143 meq/L 135 - 145 09/21 Normal [facility] CHEMISTRY CO2 35 meq/L 24 - 32 09/21 HI [facility] CHEMISTRY Calcium Lvl 9.4 mg/dL 8.5 - 10.5 09/21 Normal [facility] CHEMISTRY Glucose Lvl 71 mg/dL 70 - 99 09/21 Normal 2Interpretive Data: Adult reference range values reflect the clinical guidelines [facility] of the [place] [employer]. CHEMISTRY BUN 15 mg/dL 7 - 22 09/21 Normal [facility] CHEMISTRY Potassium 4.2 meq/L 3.5 - 5.1 09/21 Normal [facility] Lvl CHEMISTRY Chloride Lvl 100 meq/L 95 - 109 09/21 Normal [facility] CHEMISTRY Creatinine 0.4 mg/dL 0.5 - 1.4 09/21 LOW [facility] Lvl HEMATOLOGY MCV 93.4 fL 81.0 - 09/21 Normal [facility] 99.0 /2012 HEMATOLOGY MCHC 32.8 g/dL 32.0 - 09/21 Normal [facility] 36.0 /2012 HEMATOLOGY Hct 43.9 % 36.0 - 09/21 Normal [facility] 48.0 /2012 HEMATOLOGY MCH 30.6 pg 27.0 - 09/21 Normal [facility] 31.0 /2012 HEMATOLOGY Hgb 14.4 g/dL 12.0 - 09/21 Normal [facility] 16.0 /2012 HEMATOLOGY RDW 12.9 % 11.5 - 09/21 Normal [facility] 14.5 HEMATOLOGY MPV 8.7 fL 7.4 - 10.4 09/21 Normal [facility] HEMATOLOGY Platelet 349 K/CMM 133 - 450 09/21 Normal [facility] HEMATOLOGY RBC 4.70 M/CMM 4.20 - 09/21 Normal [facility] 5.40 HEMATOLOGY WBC 8.7 K/CMM 3.7 - 10.4 09/21 Normal [facility] HEMATOLOGY Eosinophils 0.1 K/CMM 0.0 - 0.5 09/21 Normal [facility] HEMATOLOGY Basophils # 0.1 K/CMM 0.0 - 0.2 09/21 Normal [facility] HEMATOLOGY Eosinophils 0.9 % 0.0 - 4.0 09/21 Normal [facility] HEMATOLOGY Basophils 0.8 % 0.0 - 1.0 09/21 Normal [facility] HEMATOLOGY Monocytes # 0.7 K/CMM 0.0 - 0.8 09/21 Normal [facility] HEMATOLOGY Segs-Bands # 4.9 K/CMM 1.5 - 8.1 09/21 Normal [facility] HEMATOLOGY Lymphocytes 2.9 K/CMM 1.0 - 5.5 09/21 Normal [facility] HEMATOLOGY Segs 56.9 % 45.0 - 09/21 Normal [facility] 75.0 HEMATOLOGY Monocytes 7.7 % 2.0 - 12.0 09/21 Normal [facility] HEMATOLOGY Lymphocytes 33.7 % 20.0 - 09/21 Normal [facility] 40.0 URINALYSIS UA Ketones Trace Negative 09/21 ABN [facility] *ABN* (09/21/2012 11:30:00) URINALYSIS UA Glucose Negative Negative 09/21 Normal [facility] (09/21/2012 11:30:00) URINALYSIS UA Protein Negative Negative 09/21 Normal [facility] (09/21/2012 11:30:00) URINALYSIS UA pH 6.0 5.0 - 8.0 09/21 Normal [facility] URINALYSIS UA Spec Grav 1.015 <=1.030 09/21 Normal [facility] URINALYSIS UA Bacteria Many /HPF None Seen 09/21 Normal [facility] /2012 (09/21/2012 11:30:00) URINALYSIS UA RBC 3-5 /HPF 0 - 2 09/21 ABN [facility] *ABN* (09/21/2012 11:30:00) URINALYSIS UA 0.2 EU/dL 0.1 - 1.0 09/21 Normal [facility] Urobilinogen URINALYSIS UA Blood Trace Negative 09/21 ABN [facility] *ABN* (09/21/2012 11:30:00) URINALYSIS UA Bili Negative Negative 09/21 NA [facility] *NA* (09/21/2012 11:30:00) URINALYSIS UA Turbidity Slight Cloudy Clear 09/21 Normal [facility] (09/21/2012 11:30:00) URINALYSIS UA Color Yellow Yellow 09/21 NA [facility] *NA* (09/21/2012 11:30:00) URINALYSIS UA WBC 0-2 /HPF None Seen 09/21 Normal [facility] (09/21/2012 11:30:00) URINALYSIS UA Sq Epi Rare /LPF Few 09/21 Normal [facility] (09/21/2012 11:30:00) URINALYSIS Micro? Performed 09/21 Normal [facility] (09/21/2012 11:30:00) URINALYSIS UA Leuk Est Negative Negative 09/21 Normal [facility] (09/21/2012 11:30:00) URINALYSIS UA Nitrite Negative Negative 09/21 Normal [facility] (09/21/2012 11:30:00) Microbiolog Culture: 09/21 [facility] y Urine Vital Signs Vital Sign Value Date Comments Source BMI Calculated 22.64 08/25/2018 [facility] Weight 63.636 08/25/2018 [facility] Heart Rate 116 08/25/2018 [facility] Respitory Rate 18 08/25/2018 [facility] Systolic (mm Hg) 102 08/25/2018 [facility] Diastolic (mm Hg) 73 08/25/2018 [facility] Height 167.64 cm 08/25/2018 [facility] BMI Calculated 23.61 08/26/2017 [facility] Weight 66.364 08/26/2017 [facility] Height 167.64 cm 08/26/2017 [facility] BMI Calculated 23.78 05/23/2017 [facility] Weight 66.818 05/23/2017 [facility] Height 167.64 cm 05/23/2017 [facility] Respitory Rate 15 05/23/2017 [facility] Heart Rate 91 05/23/2017 [facility] Systolic (mm Hg) 13 05/23/2017 [facility] Diastolic (mm Hg) 78 05/23/2017 [facility] Weight 67.727 02/11/2017 [facility] Height 167.64 cm 02/11/2017 [facility] BMI Calculated 24.1 02/11/2017 [facility] Systolic (mm Hg) 110 02/11/2017 [facility] Diastolic (mm Hg) 76 02/11/2017 [facility] Heart Rate 20 02/11/2017 [facility] Respitory Rate 20 02/11/2017 [facility] Height 167.64 cm 12/13/2016 [facility] BMI Calculated 24.1 12/13/2016 [facility] Weight 67.727 12/13/2016 [facility] Height 167.64 cm 12/13/2016 [facility] Systolic (mm Hg) 104 12/13/2016 [facility] Diastolic (mm Hg) 63 12/13/2016 [facility] Heart Rate 95 12/13/2016 [facility] Respitory Rate 18 12/13/2016 [facility] Height 167.64 cm 11/12/2016 [facility] Weight 69.545 11/12/2016 [facility] BMI Calculated 24.75 11/12/2016 [facility] Heart Rate 92 11/12/2016 [facility] Respitory Rate 20 11/12/2016 [facility] Systolic (mm Hg) 113 11/12/2016 [facility] Diastolic (mm Hg) 79 11/12/2016 [facility] Weight 70.455 11/05/2016 [facility] BMI Calculated 25.07 11/05/2016 [facility] Systolic (mm Hg) 121 11/05/2016 [facility] Diastolic (mm Hg) 80 11/05/2016 [facility] Height 167.64 cm 11/05/2016 [facility] Heart Rate 82 11/05/2016 [facility] Respitory Rate 18 11/05/2016 [facility] Respitory Rate 18 08/13/2016 [facility] Temperature Oral (F) 96.6 F 08/13/2016 [facility] Height 167.64 cm 08/13/2016 [facility] Heart Rate 87 08/13/2016 [facility] Systolic (mm Hg) 113 08/13/2016 [facility] Diastolic (mm Hg) 71 08/13/2016 [facility] BMI Calculated 25.07 08/13/2016 [facility] Weight 70.455 08/13/2016 [facility] Respitory Rate 20 08/13/2016 [facility] Heart Rate 87 08/13/2016 [facility] Systolic (mm Hg) 113 08/13/2016 [facility] Diastolic (mm Hg) 71 08/13/2016 [facility] BMI Calculated 23.78 06/04/2016 [facility] Weight 66.818 06/04/2016 [facility] Height 167.64 cm 06/04/2016 [facility] Systolic (mm Hg) 105 06/04/2016 [facility] Diastolic (mm Hg) 44 06/04/2016 [facility] Heart Rate 93 06/04/2016 [facility] Respitory Rate 16 06/04/2016 [facility] Height 167.64 cm 05/10/2016 [facility] Systolic (mm Hg) 113 05/10/2016 [facility] Diastolic (mm Hg) 56 05/10/2016 [facility] Respitory Rate 18 05/10/2016 [facility] BMI Calculated 25.07 05/10/2016 [facility] Weight 70.455 05/10/2016 [facility] Weight 64.091 02/06/2016 [facility] BMI Calculated 22.81 02/06/2016 [facility] Height 167.64 cm 02/06/2016 [facility] Heart Rate 96 02/06/2016 [facility] Systolic (mm Hg) 109 02/06/2016 [facility] Diastolic (mm Hg) 78 02/06/2016 [facility] Respitory Rate 20 02/06/2016 [facility] Height 167.64 cm 02/06/2016 [facility] BMI Calculated 22.81 02/06/2016 [facility] Heart Rate 96 02/06/2016 [facility] Respitory Rate 20 02/06/2016 [facility] Weight 64.091 02/06/2016 [facility] Systolic (mm Hg) 109 02/06/2016 [facility] Diastolic (mm Hg) 78 02/06/2016 [facility] Heart Rate 90 11/14/2015 [facility] Respitory Rate 18 11/14/2015 [facility] Systolic (mm Hg) 115 11/14/2015 [facility] Diastolic (mm Hg) 76 11/14/2015 [facility] Weight 62.273 11/14/2015 [facility] BMI Calculated 22.16 11/14/2015 [facility] Height 167.64 cm 11/14/2015 [facility] Height 167.64 cm 10/31/2015 [facility] Respitory Rate 18 10/31/2015 [facility] Systolic (mm Hg) 119 10/31/2015 [facility] Diastolic (mm Hg) 78 10/31/2015 [facility] Heart Rate 104 10/31/2015 [facility] BMI Calculated 20.38 10/31/2015 [facility] Weight 57.273 10/31/2015 [facility] Height 167.64 cm 10/31/2015 [facility] BMI Calculated 19.41 07/18/2015 [facility] Weight 54.545 07/18/2015 [facility] Height 167.64 cm 07/18/2015 [facility] Respitory Rate 18 07/18/2015 [facility] Heart Rate 97 07/18/2015 [facility] Systolic (mm Hg) 105 07/18/2015 [facility] Diastolic (mm Hg) 68 07/18/2015 [facility] Weight 55.455 06/06/2015 [facility] BMI Calculated 19.73 06/06/2015 [facility] Respitory Rate 20 06/06/2015 [facility] Height 167.64 cm 06/06/2015 [facility] Heart Rate 104 06/06/2015 [facility] Systolic (mm Hg) 96 06/06/2015 [facility] Diastolic (mm Hg) 68 06/06/2015 [facility] BMI Calculated 19.73 04/18/2015 [facility] Weight 55.455 04/18/2015 [facility] Systolic (mm Hg) 99 04/18/2015 [facility] Diastolic (mm Hg) 50 04/18/2015 [facility] Heart Rate 106 04/18/2015 [facility] Height 167.64 cm 04/18/2015 [facility] BMI Calculated 20.22 02/07/2015 [facility] Height 167.64 cm 02/07/2015 [facility] Respitory Rate 20 02/07/2015 [facility] Heart Rate 92 02/07/2015 [facility] Weight 56.818 02/07/2015 [facility] Systolic (mm Hg) 100 02/07/2015 [facility] Diastolic (mm Hg) 72 02/07/2015 [facility] Weight 58.182 01/10/2015 [facility] BMI Calculated 20.7 01/10/2015 [facility] Height 167.64 cm 01/10/2015 [facility] BMI Calculated 22 10/11/2014 [facility] Weight 61.818 10/11/2014 [facility] Height 167.64 cm 10/11/2014 [facility] Heart Rate 86 10/11/2014 [facility] Respitory Rate 18 10/11/2014 [facility] Systolic (mm Hg) 115 10/11/2014 [facility] Diastolic (mm Hg) 55 10/11/2014 [facility] Weight 61.818 10/11/2014 [facility] BMI Calculated 22 10/11/2014 [facility] Height 167.64 cm 10/11/2014 [facility] Diastolic (mm Hg) 71 07/12/2014 [facility] Systolic (mm Hg) 102 07/12/2014 [facility] Heart Rate 69 07/12/2014 [facility] Respitory Rate 20 07/12/2014 [facility] Weight 61.364 07/12/2014 [facility] BMI Calculated 21.84 07/12/2014 [facility] Height 167.64 cm 07/12/2014 [facility] Diastolic (mm Hg) 79 06/21/2014 [facility] Weight 60.455 06/21/2014 [facility] Systolic (mm Hg) 117 06/21/2014 [facility] Respitory Rate 20 06/21/2014 [facility] BMI Calculated 21.51 06/21/2014 [facility] Heart Rate 89 06/21/2014 [facility] Height 167.64 cm 06/21/2014 [facility] Heart Rate 77 04/05/2014 [facility] Diastolic (mm Hg) 73 04/05/2014 [facility] Systolic (mm Hg) 112 04/05/2014 [facility] Respitory Rate 20 04/05/2014 [facility] BMI Calculated 20.38 04/05/2014 [facility] Weight 57.273 04/05/2014 [facility] Height 167.64 cm 04/05/2014 [facility] Systolic (mm Hg) 111 03/28/2014 [facility] Diastolic (mm Hg) 71 03/28/2014 [facility] Weight 57.273 03/28/2014 [facility] BMI Calculated 20.38 03/28/2014 [facility] Height 167.64 cm 03/28/2014 [facility] Respitory Rate 20 03/28/2014 [facility] Heart Rate 90 03/28/2014 [facility] Weight 55.455 02/13/2014 [facility] BMI Calculated 19.73 02/13/2014 [facility] Height 167.64 cm 02/13/2014 [facility] Heart Rate 107 02/13/2014 [facility] Respitory Rate 18 02/13/2014 [facility] Systolic (mm Hg) 103 02/13/2014 [facility] Diastolic (mm Hg) 72 02/13/2014 [facility] Diastolic (mm Hg) 73 01/04/2014 [facility] Systolic (mm Hg) 110 01/04/2014 [facility] Respitory Rate 18 01/04/2014 [facility] Heart Rate 102 01/04/2014 [facility] BMI Calculated 19.41 01/04/2014 [facility] Height 167.64 cm 01/04/2014 [facility] Temperature Oral (F) 98.1 F 01/04/2014 [facility] Weight 54.545 01/04/2014 [facility] BMI Calculated 18.44 10/30/2013 [facility] Height 167.64 cm 10/30/2013 [facility] Weight 51.818 10/30/2013 [facility] Heart Rate 57 10/30/2013 [facility] Respitory Rate 18 10/30/2013 [facility] Diastolic (mm Hg) 73 10/30/2013 [facility] Systolic (mm Hg) 103 10/30/2013 [facility] Diastolic (mm Hg) 73 08/31/2013 [facility] Heart Rate 100 08/31/2013 [facility] Respitory Rate 18 08/31/2013 [facility] Systolic (mm Hg) 108 08/31/2013 [facility] Height 167.64 cm 08/31/2013 [facility] Weight 54.545 08/31/2013 [facility] Diastolic (mm Hg) 67 03/02/2013 [facility] Systolic (mm Hg) 104 03/02/2013 [facility] Respitory Rate 18 03/02/2013 [facility] Heart Rate 91 03/02/2013 [facility] Systolic (mm Hg) 110 03/02/2013 [facility] Heart Rate 66 03/02/2013 [facility] Respitory Rate 18 03/02/2013 [facility] Diastolic (mm Hg) 69 03/02/2013 [facility] Diastolic (mm Hg) 67 03/01/2013 [facility] Respitory Rate 18 03/01/2013 [facility] Heart Rate 74 03/01/2013 [facility] Systolic (mm Hg) 105 03/01/2013 [facility] Height 167.64 cm 02/27/2013 [facility] Height 167.64 cm 02/27/2013 [facility] Temperature Oral (F) 96.1 F 02/19/2013 [facility] Height 167.64 cm 02/12/2013 [facility] Weight 51.818 02/12/2013 [facility] Weight 52.727 01/25/2013 [facility] Respitory Rate 16 01/25/2013 [facility] Systolic (mm Hg) 100 01/25/2013 [facility] Heart Rate 58 01/25/2013 [facility] Diastolic (mm Hg) 60 01/25/2013 [facility] Height 167.64 cm 01/12/2013 [facility] Weight 54.545 01/12/2013 [facility] Diastolic (mm Hg) 65 01/12/2013 [facility] Systolic (mm Hg) 91 01/12/2013 [facility] Respitory Rate 16 01/12/2013 [facility] Heart Rate 81 01/12/2013 [facility] Weight 53.182 11/24/2012 [facility] Height 167.64 cm 11/24/2012 [facility] Heart Rate 90 11/24/2012 [facility] Diastolic (mm Hg) 70 11/24/2012 [facility] Systolic (mm Hg) 104 11/24/2012 [facility] Temperature Oral (F) 98.6 F 11/24/2012 [facility] Respitory Rate 18 11/24/2012 [facility] Height 167.64 cm 10/27/2012 [facility] Weight 53.182 10/27/2012 [facility] Diastolic (mm Hg) 67 10/27/2012 [facility] Heart Rate 97 10/27/2012 [facility] Respitory Rate 18 10/27/2012 [facility] Systolic (mm Hg) 106 10/27/2012 [facility] Diastolic (mm Hg) 72 10/02/2012 [facility] Systolic (mm Hg) 110 10/02/2012 [facility] Respitory Rate 18 10/02/2012 [facility] Heart Rate 87 10/02/2012 [facility] Diastolic (mm Hg) 69 10/02/2012 [facility] Systolic (mm Hg) 116 10/02/2012 [facility] Respitory Rate 18 10/02/2012 [facility] Heart Rate 90 10/02/2012 [facility] Diastolic (mm Hg) 62 10/02/2012 [facility] Systolic (mm Hg) 105 10/02/2012 [facility] Respitory Rate 18 10/02/2012 [facility] Heart Rate 85 10/02/2012 [facility] Weight 53.182 10/02/2012 [facility] Height 167.64 cm 10/02/2012 [facility] Systolic (mm Hg) 110 07/20/2012 [facility] Diastolic (mm Hg) 72 07/20/2012 [facility] Respitory Rate 18 07/20/2012 [facility] Heart Rate 92 07/20/2012 [facility] Height 154.94 cm 07/20/2012 [facility] Weight 52.273 07/20/2012 [facility] Height 167.64 cm 07/11/2012 [facility] Weight 51.364 07/11/2012 [facility] Systolic (mm Hg) 108 07/11/2012 [facility] Diastolic (mm Hg) 53 07/11/2012 [facility] Heart Rate 94 07/11/2012 [facility] Respitory Rate 18 07/11/2012 [facility] Weight 60.000 02/29/2012 [facility] Height 167.64 cm 02/29/2012 [facility] Respitory Rate 16 02/29/2012 [facility] Systolic (mm Hg) 104 02/29/2012 [facility] Heart Rate 104 02/29/2012 [facility] Diastolic (mm Hg) 65 02/29/2012 [facility] Respitory Rate 18 12/28/2011 [facility] Heart Rate 92 12/28/2011 [facility] Diastolic (mm Hg) 75 12/28/2011 [facility] Systolic (mm Hg) 111 12/28/2011 [facility] Weight 60.455 12/28/2011 [facility] Height 167.64 cm 12/28/2011 [facility] Systolic (mm Hg) 107 09/21/2011 [facility] Diastolic (mm Hg) 82 09/21/2011 [facility] Heart Rate 87 09/21/2011 [facility] Respitory Rate 18 09/21/2011 [facility] Respitory Rate 18 08/27/2011 [facility] Heart Rate 108 08/27/2011 [facility] Diastolic (mm Hg) 66 08/27/2011 [facility] Systolic (mm Hg) 103 08/27/2011 [facility] Height 167.64 cm 08/27/2011 [facility] Weight 63.636 08/27/2011 [facility] Respitory Rate 18.0 04/20/2011 [facility] Systolic (mm Hg) 94.0 04/20/2011 [facility] Diastolic (mm Hg) 71.0 04/20/2011 [facility] Heart Rate 86.0 04/20/2011 [facility] Height 167.64 cm 04/20/2011 [facility] Weight 55.455 04/20/2011 [facility] Encounters Location Location Encounter Encounter Reason Attending ADM DC Status Source Details Type Number For Provider Date Date Visit Outpatient [id number] F/U EMELY TASTARD 08/27 Active [facility] Outpatient [id number] UNITS EMELY TASTARD 09/21 Active [facility] Outpatient [id number] F/U SCOOTER 12/27 Active [facility] 2 LILLIAN Outpatient [id number] 600 EMELY TASTARD 02/28 Active [facility] 5 UNITS /2011 Outpatient [id number] F/U EMELY TASTARD 07/11 Active [facility] Outpatient [id number] 600 EMELY TASTARD 07/20 Active [facility] 9 UNITS /2011 Outpatient [id number] ITB EMELY TASTARD 09/21 Active [facility] 3 TRIAL Outpatient [id number] ITB EMELY TASTARD 10/02 10/02 Active [facility] 2 TRIAL /2012 Outpatient [id number] F/U EMELY TASTARD 10/27 Active [facility] Outpatient [id number] 500 EMELY TASTARD 11/24 11/24 Active [facility] 1 UNITS /2012 Outpatient [id number] SPASTICI EMELY TASTARD 12/18 Active [facility] 7 Outpatient [id number] F/U EMELY TASTARD 01/12 Active [facility] Outpatient [id number] 400 EMELY TASTARD 01/25 Active [facility] 6 UNITS [place] [id number] EMELY TASTARD 02/12 03/02 Active [facility] 0 /2012 Outpatient [id number] 400 EMELY TASTARD 08/31 Active [facility] 9 UNITS [facility] Outpatient [id number] _MAPID:E Scooter 10/30 10/31 [facility] [place] [id number] NCNTRRFV [place] /2013 [facility] [id number] [facility] Outpatient [id number] Stacy 01/04 01/05 [facility] [place] 2 Mag[place] /2013 [facility] Outpatient [id number] Stacy 02/13 02/14 [facility] [place] 6 Magat /2013 [facility] Outpatient [id number] Stacy 03/19 03/20 [facility] 7 Magat /2013 [facility] Outpatient [id number] Allan 03/28 03/29 [facility] 8 Chung /2013 [facility] Outpatient [id number] Stacy 04/05 04/06 [facility] [place] 5 Magat /2013 [facility] Outpatient [id number] Stacy 05/31 06/01 [facility] [place] 2 Magat /2013 [facility] Outpatient [id number] Stacy 06/04 06/05 [facility] 4 Magat /2013 [facility] Outpatient [id number] Allan 06/21 06/22 [facility] [place] 3 Chung /2013 [facility] Outpatient [id number] Stacy 07/12 07/13 [facility] [place] 0 Magat /2013 [facility] Outpatient [id number] Stacy 10/11 10/12 [facility] 7 Mag[place] /2014 [facility] Outpatient [id number] Stacy 11/22 11/23 [facility] 5 Magat /2014 [facility] Outpatient [id number] Stacy 01/10 01/11 [facility] [place] 2 Magat /[facility] [id number] Allan 02/07 02/08 [facility] 1 Chung /2014 [facility] Out[facility] [id number] Stacy 04/18 04/19 [facility] 4 [facility] Outpatient [id number] Stacy 05/16 05/17 [facility] 7 [place] /2014 [facility] Outpatient [id number] Allan 06/06 06/07 [facility] 5 Chung /2014 [facility] Outpatient [id number] Stacy 07/18 07/19 [facility] 6 [facility] Outpatient [id number] Stacy 10/30 10/31 [facility] 1 Mag [facility] Outpatient [id number] Stacy 11/13 11/14 [facility] 9 [facility] Outpatient [id number] Stacy 02/05 02/06 [facility] 2 [facility] Outpatient [id number] Stacy 05/10 05/11 [facility] 4 [facility] Outpatient [id number] Allan 06/04 06/05 [facility] 5 [facility] Outpatient [id number] Stacy 08/13 08/14 [facility] 6 [facility] [facility] Outpatient [id number] Allan 09/17 09/18 [facility] 8 [facility] Outpatient [id number] Stacy 11/05 11/06 [facility] 9 [facility] Outpatient [id number] Stacy 11/12 11/13 [facility] 1 Mag [facility] Outpatient [id number] Stacy 12/13 12/14 [facility] 4 [facility] Outpt Diag [id number] Felix Hanson 01/12 01/13 [facility] Outpatient [id number] Stacy 02/11 02/12 [facility] 3 [facility] Outpatient [id number] Stacy 05/11 05/12 [facility] 2 [facility] Outpatient [id number] Stacy 05/23 05/24 [facility] Outpatient [id number] Stacy 08/26 08/27 [facility] Outpatient [id number] Stacy 10/31 11/01 [facility] Outpatient [id number] Stacy 08/25 08/26 [facility] 3 [facility] [place] [id number] ANOXIC EMELY TASTARD Cancel [facility] 2 BRAIN INJURY 342.1 Outpatient [id number] F/U EMELY TASTARD Cancel [facility] 0 Outpatient [id number] F/U EMELY TASTARD Cancel [facility] 9 Outpatient [id number] FU EMELY TASTARD Cancel [facility] 1 Outpatient [id number] FU EMELY TASTARD Cancel [facility] 7 Outpatient [id number] 600 EMELY TASTARD Cancel [facility] 3 UNITS Outpatient [id number] F/U SCOOTER Cancel [facility] 4 LILLIAN Outpatient [id number] F/U EMELY TASTARD Cancel [facility] 6 Outpatient [id number] F/U EMELY TASTARD Cancel [facility] 7 Outpatient [id number] F/U EMELY TASTARD Cancel [facility] 0 Outpatient [id number] NEUROGEN ARNOL Active [facility] 2 IC COOK BLADDER W/INCONT INENCE Outpatient [id number] F/U EMELY TASTARD Active [facility] 5 Outpatient [id number] 500/40 EMELY TASTARD Active [facility] 9 Procedures Procedure Code Date Perfomer [place] [address] [facility] one extremity; each 9 additional extremity, 1-4 muscle(s) (List separately in addition to code for primary procedure[place] [address] [facility] one extremity; 5 or 9 [place] [address] [facility] one extremity; each 8 additional extremity, 1-4 muscle(s) (List separately in addition to code for primary procedure) [place] [address] [facility] one extremity; 5 or 8 [place] [address] [facility] one extremity; 5 [place] 7 [place] [address] [facility] one extremity; 5 [place] 7 [place] [address] [facility] one extremity; each 7 additional extremity, 1-4 muscle(s) (List separately in addition to code for primary procedure) [place] [address] [facility] one extremity; 5 or 7 [place] [address] [facility] one extremity; 5 or 7 more muscles Video urodynamic study [id number] [facility] 3 Video urodynamic study [id number] [facility] 3 [place] Spinal cord [id number] removal [facility] stimulation<sup>1</sup 9 > Spinal cord [id number] removal [facility] stimulation<sup>1</sup 9 [place] > Spinal cord [id number] 2removal [facility] stimulation 9 <sup>2</sup> Arthroscopy of [id number] (L) Knee [facility] knee<sup>2</sup> Chemodenervation [id number] [facility] Tubal [id number] 1972 & 1980 [facility] ligation<sup>3</sup> Arthroscopy of [id number] (L) Knee [facility] knee<sup>2</sup> [place] Chemodenervation [id number] OP[facility] [place] Tubal [id number] 1972 & 1980 [facility] ligation<sup>3</sup> [place] Arthroscopy of knee [id number] 1(L) Knee [facility] <sup>1</sup> Tubal ligation [id number] & 1980 [facility] <sup>3</sup>
--- OUTSIDE RECORDS SUMMARY | 2018-08-28 10:45 | XMS REPORT | CCD ---
:1945 Author Organization [facility] Care Team Providers Name Role Phone Nikki Munoz Referring Provider Allergies, Adverse Reactions, Alerts Substance Reaction Status NKDA Active Problem List Condition Effective Dates Status Anoxic brain injury Active Back pain Active Cardiac arrest Resolved Fibroids Resolved Incontinence Active Migraine Active Pneumonia Resolved Weakness Active
--- OUTSIDE RECORDS SUMMARY | 2018-08-28 10:45 | XMS REPORT | CCD ---
:1945 Author Organization [facility] Team Providers Name Role Phone Nikki Munoz Referring Provider Allergies, Adverse Reactions, Alerts Substance Reaction Status NKDA Active Problem List Condition Effective Dates Status Anoxic brain injury Active Back pain Active Cardiac arrest Resolved Fibroids Resolved Incontinence Active Migraine Active Pneumonia Resolved Weakness Active Medications Medication Instructions Start Date End Date Status Ativan 0.5 mg oral tablet BID, Substitution Allowed 01/12/2013 Ordered metoprolol 25 mg oral tablet 25 mg, 1 tab, PO, BID, 180 01/12/2013 Ordered tab, Substitution Allowed, TAB docusate sodium 100 mg oral 100 mg, PO, BID, PRN, 20 cap, 01/12/2013 Ordered capsule Constipation, Substitution Allowed Vital Signs Most recent to oldest [Reference Range]: 1 Height 167.64 cm (01/12/2013 09:36:00) Systolic Blood Pressure [90-140 mmHg] 91 mmHg (01/12/2013 09:36:00) Diastolic Blood Pressure [60-90 mmHg] 65 mmHg (01/12/2013 09:36:00) Respiratory Rate [14-20 BRMIN] 16 BRMIN (01/12/2013 09:36:00) Peripheral Pulse Rate [60-100 bpm] 81 bpm (01/12/2013 09:36:00) Weight 54.545 kg (01/12/2013 09:36:00)
--- OUTSIDE RECORDS SUMMARY | 2018-08-28 10:45 | XMS REPORT | CCD ---
:1945 Author Organization [facility] Care Team Providers Name Role Phone Nikki Munoz Referring Provider Allergies, Adverse Reactions, Alerts Substance Reaction Status NKDA Active Medications Medication Instructions Start Date End Date Status Lexapro 10 mg oral 10 mg, 1 tab, PO, Daily, 09/21/2011 Ordered tablet 90 tab, Substitution Allowed, TAB LORAzepam Substitution Allowed 09/21/2011 Ordered LORAzepam 0.5 mg oral 0.5 mg, 1 tab, PO, TID, 09/21/2011 09/21/2011 Discontinued tablet PRN, Anxiety, Substitution Allowed, TAB Vital Signs Most recent to oldest [Reference Range]: 1 Systolic Blood Pressure [90-140 mmHg] 107 mmHg (09/21/2011 12:33:00) Diastolic Blood Pressure [60-90 mmHg] 82 mmHg (09/21/2011 12:33:00) Respiratory Rate [14-20 BRMIN] 18 BRMIN (09/21/2011 12:33:00) Peripheral Pulse Rate [60-100 bpm] 87 bpm (09/21/2011 12:33:00)
--- OUTSIDE RECORDS SUMMARY | 2018-08-28 10:45 | XMS REPORT | CCD ---
:1945 Author Organization [facility] Care Team Providers Name Role Phone Nikki Munoz Referring Provider Allergies, Adverse Reactions, Alerts Substance Reaction Status NKDA Active Problem List Condition Effective Dates Status Anoxic brain injury Active Back pain Active Cardiac arrest Resolved Fibroids Resolved Incontinence Active Migraine Active Pneumonia Resolved Weakness Active Vital Signs Most recent to oldest [Reference Range]: 1 Systolic Blood Pressure [90-140 mmHg] 100 mmHg (01/25/2013 09:08:00) Diastolic Blood Pressure [60-90 mmHg] 60 mmHg (01/25/2013 09:08:00) Respiratory Rate [14-20 BRMIN] 16 BRMIN (01/25/2013 09:08:00) Peripheral Pulse Rate [60-100 bpm] 58 bpm *LOW* (01/25/2013 09:08:00) Weight 52.727 kg (01/25/2013 09:13:00)
--- OUTSIDE RECORDS SUMMARY | 2018-08-28 10:45 | XMS REPORT | CCD ---
:[address] [facility] Care Team Providers Name Role Phone Nikki Munoz Referring Provider Allergies, Adverse Reactions, Alerts Substance Reaction Status NKDA Active Problem List Condition Effective Dates Status Anoxic brain injury Active Back pain Active Cardiac arrest Resolved Fibroids Resolved Incontinence Active Migraine Active Pneumonia Resolved Weakness Active Medications Medication Instructions Start Date End Date Status mirtazapine 7.5 mg oral PO, Bedtime, Substitution 07/20/2012 Ordered tablet Allowed Vital Signs Most recent to oldest [Reference Range]: 1 Height 154.94 cm (07/20/2012 10:55:00) Systolic Blood Pressure [90-140 mmHg] 110 mmHg (07/20/2012 10:55:00) Diastolic Blood Pressure [60-90 mmHg] 72 mmHg (07/20/2012 10:55:00) Respiratory Rate [14-20 BRMIN] 18 BRMIN (07/20/2012 10:55:00) Peripheral Pulse Rate [60-100 bpm] 92 bpm (07/20/2012 10:55:00) Weight 52.273 kg (07/20/2012 10:55:00)
--- OUTSIDE RECORDS SUMMARY | 2018-08-28 10:45 | XMS REPORT | CCD ---
:1945 Author Organization [facility] Team Providers Name Role Phone NinoracheleNikki Referring Provider Allergies, Adverse Reactions, Alerts Substance Reaction Status NKDA Active Problem List Condition Effective Dates Status Anoxic brain injury Active Back pain Active Cardiac arrest Resolved Fibroids Resolved Incontinence Active Migraine Active Pneumonia Resolved Weakness Active Vital Signs Most recent to oldest 1 2 3 [Reference Range]: Height 167.64 cm (10/02/2012 08:00:00) Systolic Blood Pressure 110 mmHg 116 mmHg 105 mmHg [90-140 mmHg] (10/02/2012 13:00:00) (10/02/2012 12:30:00) (10/02/2012 12:15: 00) Diastolic Blood Pressure 72 mmHg 69 mmHg 62 mmHg [60-90 mmHg] (10/02/2012 13:00:00) (10/02/2012 12:30:00) (10/02/2012 12:15: 00) Respiratory Rate [14-20 18 BRMIN 18 BRMIN 18 BRMIN BRMIN] (10/02/2012 13:00:00) (10/02/2012 12:30:00) (10/02/2012 12:15:00) Peripheral Pulse Rate 87 bpm 90 bpm 85 bpm [60-100 bpm] (10/02/2012 13:00:00) (10/02/2012 12:30:00) (10/02/2012 12:15: 00) Weight 53.182 kg (10/02/2012 08:00:00)
--- OUTSIDE RECORDS SUMMARY | 2018-08-28 10:45 | XMS REPORT | CCD ---
:1945 Author Organization [facility] Team Providers Name Role Phone Manuel Clarke Consulting Provider Unavailable Nova Gutierrez Consulting Provider Unavailable ChartServer, Login Consulting Provider Unavailable Nikki Munoz Referring Provider Allergies, Adverse Reactions, Alerts Substance Reaction Status NKDA ?? Active Medications Medication Instructions Start Date End Date Status Risperdal 0.25 mg oral PO, 30, 10, Substitution 04/20/2011 ?? Ordered tablet Allowed Vital Signs Most recent to oldest [Reference Range]: 1 Height 167.64 cm (04/20/2011 12:53:00) ?? Systolic Blood Pressure [90-140 mmHg] 94 mmHg (04/20/2011 12:53:00) ?? Diastolic Blood Pressure [60-90 mmHg] 71 mmHg (04/20/2011 12:53:00) ?? Respiratory Rate [14-20 BRMIN] 18 BRMIN (04/20/2011 12:53:00) ?? Peripheral Pulse Rate [60-100 bpm] 86 bpm (04/20/2011 12:53:00) ?? Weight 55.455 kg (04/20/2011 12:53:00) ??
--- OUTSIDE RECORDS SUMMARY | 2018-08-28 10:45 | XMS REPORT | CCD ---
:1945 Author Organization [facility] Team Providers Name Role Phone Nikki Munoz Consulting Provider Allergies, Adverse Reactions, Alerts Substance Reaction Status NKDA Active Medications Medication Instructions Start Date End Date Status Cymbalta 30 mg oral 30 mg, 1 cap, PO, Daily, 7 08/27/2011 01/18/2012 Completed delayed release capsule cap, Substitution Allowed Nuedexta oral capsule 1 cap, PO, Daily, 90 cap, 08/27/2011 01/18/2012 Completed 4, 4, Substitution Allowed, Maintenance Lexapro 10 mg oral tablet 10 mg, 1 tab, PO, Daily, 90 09/21/2011 01/18/2012 Completed tab, 4, 4, Substitution Allowed, TAB
--- OUTSIDE RECORDS SUMMARY | 2018-08-28 10:45 | XMS REPORT | CCD ---
:1945 Author Organization [facility] Care Team Providers Name Role Phone Nikki Munoz Referring Provider Allergies, Adverse Reactions, Alerts Substance Reaction Status NKDA Active Medications Medication Instructions Start Date End Date Status Toviaz 4 mg, Substitution Allowed, once a day 02/29/2012 Ordered once a day Flomax 0.4 mg oral capsule 0.4 mg, 1 cap, PO, Daily, 90 02/29/2012 Ordered cap, Substitution Allowed, CAP Vital Signs Most recent to oldest [Reference Range]: 1 Height 167.64 cm (02/29/2012 10:28:00) Systolic Blood Pressure [90-140 mmHg] 104 mmHg (02/29/2012 10:17:00) Diastolic Blood Pressure [60-90 mmHg] 65 mmHg (02/29/2012 10:17:00) Respiratory Rate [14-20 BRMIN] 16 BRMIN (02/29/2012 10:17:00) Peripheral Pulse Rate [60-100 bpm] 104 bpm *HI* (02/29/2012 10:17:00) Weight 60.000 kg (02/29/2012 10:28:00)
--- OUTSIDE RECORDS SUMMARY | 2018-08-28 10:45 | XMS REPORT | CCD ---
:1945 Author Organization [facility] Care Team Providers Name Role Phone Nikki Munoz Referring Provider Allergies, Adverse Reactions, Alerts Substance Reaction Status NKDA Active Medications Medication Instructions Start Date End Date Status carbidopa-levodopa 50 mg-200 1 tab, PO, BID, 90 tab, 08/27/2011 Ordered mg oral tablet, extended Substitution Allowed, release Maintenance Vital Signs Most recent to oldest [Reference Range]: 1 Height 167.64 cm (08/27/2011 11:52:00) Systolic Blood Pressure [90-140 mmHg] 103 mmHg (08/27/2011 11:52:00) Diastolic Blood Pressure [60-90 mmHg] 66 mmHg (08/27/2011 11:52:00) Respiratory Rate [14-20 BRMIN] 18 BRMIN (08/27/2011 11:52:00) Peripheral Pulse Rate [60-100 bpm] 108 bpm *HI* (08/27/2011 11:52:00) Weight 63.636 kg (08/27/2011 11:52:00)
--- OUTSIDE RECORDS SUMMARY | 2018-08-28 10:45 | XMS REPORT | CCD ---
:[address] [facility] Care Team Providers Name Role Phone Nikki Munoz Referring Provider Allergies, Adverse Reactions, Alerts Substance Reaction Status NKDA Active Problem List Condition Effective Dates Status Anoxic brain injury Active Back pain Active Cardiac arrest Resolved Fibroids Resolved Incontinence Active Migraine Active Pneumonia Resolved Weakness Active Vital Signs Most recent to oldest [Reference Range]: 1 Height 167.64 cm (10/27/2012 10:07:00) Systolic Blood Pressure [90-140 mmHg] 106 mmHg (10/27/2012 10:07:00) Diastolic Blood Pressure [60-90 mmHg] 67 mmHg (10/27/2012 10:07:00) Respiratory Rate [14-20 BRMIN] 18 BRMIN (10/27/2012 10:07:00) Peripheral Pulse Rate [60-100 bpm] 97 bpm (10/27/2012 10:07:00) Weight 53.182 kg (10/27/2012 10:07:00)
--- OUTSIDE RECORDS SUMMARY | 2018-08-28 10:45 | XMS REPORT | CCD ---
:1945 Author Organization [facility] Care Team Providers Name Role Phone NinoNikki jeffrey Kelly Referring Provider Allergies, Adverse Reactions, Alerts Substance Reaction Status NKDA Active Problem List Condition Effective Dates Status Anoxic brain injury Active Back pain Active Cardiac arrest Resolved Fibroids Resolved Incontinence Active Migraine Active Pneumonia Resolved Weakness Active Medications Medication Instructions Start Date End Date Status Estrace Vaginal Cream 0.1 TOP, Every Other Day, 07/11/2012 Ordered mg/g Substitution Allowed Detrol LA 4 mg oral capsule, 4 mg, 1 cap, PO, Daily, 30 07/11/2012 Ordered extended release cap, Substitution Allowed Vital Signs Most recent to oldest [Reference Range]: 1 Height 167.64 cm (07/11/2012 09:20:00) Systolic Blood Pressure [90-140 mmHg] 108 mmHg (07/11/2012 09:20:00) Diastolic Blood Pressure [60-90 mmHg] 53 mmHg *LOW* (07/11/2012 09:20:00) Respiratory Rate [14-20 BRMIN] 18 BRMIN (07/11/2012 09:20:00) Peripheral Pulse Rate [60-100 bpm] 94 bpm (07/11/2012 09:20:00) Weight 51.364 kg (07/11/2012 09:20:00) Procedures Procedures Date Related Diagnosis Arthroscopy of knee 1 Spinal cord stimulation 2 01/21/2009 00:00:00 Tubal ligation 3 1(L) [id number] & 1981
--- OUTSIDE RECORDS SUMMARY | 2018-08-28 10:45 | XMS REPORT | CCD ---
:1945 Author Organization [facility] Care Team Providers Name Role Phone Nikki Munoz Referring Provider Allergies, Adverse Reactions, Alerts Substance Reaction Status NKDA Active Problem List Condition Effective Dates Status Anoxic brain injury Active Back pain Active Cardiac arrest Resolved Fibroids Resolved Incontinence Active Migraine Active Pneumonia Resolved Weakness Active Results URINALYSIS Most recent to oldest [Reference Range]: 1 UA Turbidity [Clear] Slight Cloudy (09/21/2012 11:30:00) UA Color [Yellow] Yellow *NA* (09/21/2012 11:30:00) UA pH [5.0-8.0] 6.0 (09/21/2012 11:30:00) UA Spec Grav [<=1.030] 1.015 (09/21/2012 11:30:00) UA Glucose [Negative] Negative (09/21/2012 11:30:00) UA Blood [Negative] Trace *ABN* (09/21/2012 11:30:00) UA Ketones [Negative] Trace *ABN* (09/21/2012 11:30:00) UA Protein [Negative] Negative (09/21/2012 11:30:00) UA Urobilinogen [0.1-1.0 EU/dL] 0.2 EU/dL (09/21/2012 11:30:00) UA Bili [Negative] Negative *NA* (09/21/2012 11:30:00) UA Leuk Est [Negative] Negative (09/21/2012 11:30:00) UA Nitrite [Negative] Negative (09/21/2012 11:30:00) UA WBC [None Seen /HPF] 0-2 /HPF (09/21/2012 11:30:00) UA RBC [0-2 /HPF] 3-5 /HPF *ABN* (09/21/2012 11:30:00) UA Bacteria [None Seen /HPF] Many /HPF (09/21/2012 11:30:00) UA Sq Epi [Few /LPF] Rare /LPF (09/21/2012:30:00) Micro? Performed (09/21/2012:30:00) CHEMISTRY Most recent to oldest [Reference Range]: 1 Sodium Lvl [135-145 mEq/L] 143 mEq/L (09/21/2012:30:00) Potassium Lvl [3.5-5.1 mEq/L] 4.2 mEq/L (09/21/2012:30:00) Chloride Lvl [95-109 mEq/L] 100 mEq/L (09/21/2012:30:00) CO2 [24-32 mEq/L] 35 mEq/L *HI* (09/21/2012:30:00) AGAP [10.0-20.0 mEq/L] 12.2 mEq/L (09/21/2012:30:00) Creatinine Lvl [0.5-1.4 mg/dL] 0.4 mg/dL *LOW* (09/21/2012:30:00) eGFR 110 mL/min/1.73m2 1 *NA* (09/21/2012:30:00) BUN [7-22 mg/dL] 15 mg/dL (09/21/2012:30:00) Glucose Lvl [70-99 mg/dL] 71 mg/dL 2 (09/21/2012:30:00) Calcium Lvl [8.5-10.5 mg/dL] 9.4 mg/dL (09/21/2012:30:00) 1Result Comment: The eGFR is calculated using the CKD-EPI formula. In most young , healthy individualsthe eGFR will be >90 mL/min/1.73m2. The eGFR declines with age. An eGFR of 60-89 may be normal in some populations, particularly the elderly, for whom the CKD-EPI formula has not been extensively validated. Use of the eGFR is not recommended in the following populations: Individuals with unstable creatinine concentrations, including patients and those with serious co-morbid conditions. Patients with extremes in muscle mass or diet. The data above are obtained from the National Kidney Disease Education Program ( NKDEP) which additionally recommends that when the eGFR is used in patients with extremes of body mass index for purposesof drug dosing, the eGFR should be multiplied by the estimated BMI.2Interpretive Data: Adult reference range values reflect the clinical guidelines of the [place] [employer].HEMATOLOGY Most recent to oldest [Reference Range]: 1 WBC [3.7-10.4 K/CMM] 8.7 K/CMM (09/21/2012:30:00) RBC [4.20-5.40 M/CMM] 4.70 M/CMM (09/21/201230:00) Hgb [12.0-16.0 g/dL] 14.4 g/dL (09/21/201200) Hct [36.0-48.0 %] 43.9 % (09/21/201200) MCV [81.0-99.0 fL] 93.4 fL (09/21/201200) MCH [27.0-31.0 pg] 30.6 pg (09/21/2012) MCHC [32.0-36.0 g/dL] 32.8 g/dL (09/21/201230:00) RDW [11.5-14.5 %] 12.9 % (09/21/2012) Platelet [133-450 K/CMM] 349 K/CMM (09/21/201230:00) MPV [7.4-10.4 fL] 8.7 fL (09/21/2012::00) Segs [45.0-75.0 %] 56.9 % (09/21/2012) Lymphocytes [20.0-40.0 %] 33.7 % (09/21/201200) Monocytes [2.0-12.0 %] 7.7 % (09/21/2012) Eosinophils [0.0-4.0 %] 0.9 % (09/21/201200) Basophils [0.0-1.0 %] 0.8 % (09/21/2012:00) Segs-Bands # [1.5-8.1 K/CMM] 4.9 K/CMM (09/21/2012 11:30:00) Lymphocytes # [1.0-5.5 K/CMM] 2.9 K/CMM (09/21/2012 11:30:00) Monocytes # [0.0-0.8 K/CMM] 0.7 K/CMM (09/21/2012 11:30:00) Eosinophils # [0.0-0.5 K/CMM] 0.1 K/CMM (09/21/2012 11:30:00) Basophils # [0.0-0.2 K/CMM] 0.1 K/CMM (09/21/2012 11:30:00) Microbiology Reports PROCEDURE:Culture: Urine STATUS: In Progress BODY SITE: COLLECTED DATE/TIME: 09/21/2012 11:30:00 SOURCE: Urine, Clean Catch FREE TEXT SOURCE: PRELIMINARY REPORTS Preliminary ReportHolding For Better Growth
--- OUTSIDE RECORDS SUMMARY | 2018-08-28 10:45 | XMS REPORT | CCD ---
:1945 Author Organization [facility] Team Providers Name Role Phone Dorita Snyder Mary Lou Referring Provider Allergies, Adverse Reactions, Alerts Substance Reaction Status NKDA Active Medications Medication Instructions Start Date End Date Status Unknown Home Medication Substitution Allowed 12/28/2011 Ordered cranberry oral capsule Substitution Allowed, 12/28/2011 Ordered Maintenance VESIcare 5 mg oral tablet 5 mg, 1 tab, PO, Daily, 90 tab, 12/28/2011 Ordered Substitution Allowed, TAB Vital Signs Most recent to oldest [Reference Range]: 1 Height 167.64 cm (12/28/2011 10:07:00) Systolic Blood Pressure [90-140 mmHg] 111 mmHg (12/28/2011 10:07:00) Diastolic Blood Pressure [60-90 mmHg] 75 mmHg (12/28/2011 10:07:00) Respiratory Rate [14-20 BRMIN] 18 BRMIN (12/28/2011 10:07:00) Peripheral Pulse Rate [60-100 bpm] 92 bpm (12/28/2011 10:07:00) Weight 60.455 kg (12/28/2011 10:07:00)
--- OUTSIDE RECORDS SUMMARY | 2018-08-28 10:45 | XMS REPORT | CCD ---
:1945 Author Organization [facility] Care Team Providers Name Role Phone Nikki Munoz Consulting Provider Dorita Snyder Referring Provider Allergies, Adverse Reactions, Alerts Substance Reaction Status NKDA Active Problem List Condition Effective Dates Status Anoxic brain injury Active Back pain Active Cardiac arrest Resolved Fibroids Resolved Incontinence Active Migraine Active Pneumonia Resolved Weakness Active Medications Medication Instructions Start Date End Date Status pravastatin 20 mg oral 20 mg, 1 tab, PO, Daily, 30 11/24/2012 Ordered tablet tab, Substitution Allowed, TAB Vital Signs Most recent to oldest [Reference Range]: 1 Height 167.64 cm (11/24/2012 11:20:00) Temperature Oral [96.4-99.1 DegF] 98.6 DegF (11/24/2012 11:20:00) Systolic Blood Pressure [90-140 mmHg] 104 mmHg (11/24/2012 11:20:00) Diastolic Blood Pressure [60-90 mmHg] 70 mmHg (11/24/2012 11:20:00) Respiratory Rate [14-20 BRMIN] 18 BRMIN (11/24/2012 11:20:00) Peripheral Pulse Rate [60-100 bpm] 90 bpm (11/24/2012 11:20:00) Weight 53.182 kg (11/24/2012 11:20:00)
--- OUTSIDE RECORDS SUMMARY | 2018-08-28 10:46 | XMS REPORT | Summary of Care ---
:1945 Author Encounter Dates Location Diagnoses Discharge Disposition Providers 10/30/2013 - [facility] Stacy Coleman 10/30/[address] [place], [place] [id number] [address] Reason for Visit 500/40 Vital Signs Most recent to oldest [Reference Range]: 1 Height 167.64 cm (10/30/2013 11:41:00 [place]) Systolic Blood Pressure [90-140 mmHg] 103 mmHg (10/30/2013 11:21:00 [place]) Diastolic Blood Pressure [60-90 mmHg] 73 mmHg (10/30/2013 11:21:00 [place]) Respiratory Rate [14-20 BRMIN] 18 BRMIN (10/30/2013 11:21:00 [place]) Peripheral Pulse Rate [60-100 bpm] 57 bpm *LOW* (10/30/2013 11:21:00 [place]) Weight 51.818 kg (10/30/2013 11:41:00 [place]) Body Mass Index 18.44 m2 (10/30/2013 11:41:00 [place]) Problem List Condition Effective Dates Status Health Status Informant Anoxic brain injury(Confirmed) Active Anxiety(Confirmed) 2013 Active Back pain(Confirmed) Active Cardiac arrest(Confirmed) Resolved Fibroids(Confirmed) Resolved Incontinence(Confirmed) Active Irregular heart beat(Confirmed) 2013 Active Migraine(Confirmed) Active Neurogenic bladder(Confirmed) 01/21/2009 Active Pneumonia(Confirmed) Resolved Skin allergy(Confirmed) 2012 Resolved Sleep apnea(Confirmed) Resolved Urinary tract infection(Confirmed) 2013 Active Weakness(Confirmed) Active Allergies, Adverse Reactions, Alerts Substance Reaction Severity Status NKDA Active Medications No data available for this section Medications Administered During Your Visit No data available for this section Immunizations No data available for this section Social History Social History Type Response
--- OUTSIDE RECORDS SUMMARY | 2018-08-28 10:46 | XMS REPORT | CCD ---
:1945 Author Organization Formerly [facility] Team Providers Name Role Phone Jorge Coe Consulting Provider Nikki Munoz Consulting Provider Allergies, Adverse Reactions, Alerts Substance Reaction Status NKDA Active Problem List Condition Effective Dates Status Anoxic brain injury Active Anxiety 2013 Active Back pain Active Cardiac arrest Resolved Fibroids Resolved Incontinence Active Irregular heart beat 2013 Active Migraine Active Pneumonia Resolved Skin allergy 2013 Resolved Sleep apnea Resolved Urinary tract infection 2013 Active Weakness Active Medications Medication Instructions Start Date End Date Status senna 8.6 mg oral tablet 8.6 mg, 1 tab, Route: 02/15/2013 02/18/2013 Discontinued PO, Drug Form: TAB, Dosing Weight 51.818, kg, Daily, PRN Constipation, Start date: 02/15/13 9:06:00, Duration: 90 day, Stop date: 05/16/13 9:05:00 acetaminophen 325 mg oral 650 mg, 2 tab, PO, Q4H, 03/01/2013 03/15/2013 Ordered tablet PRN, 168 tab, as needed for pain, Substitution Allowed, TAB senna 8.6 mg oral tablet 8.6 mg, 1 tab, Route: 02/15/2013 02/15/2013 Completed PO, Drug Form: TAB, Dosing Weight 51.818, kg, ONCE, Start date: 02/15/13 9:06:00, Stop date: 02/15/13 9:06:00 LORAzepam 0.5 mg oral 0.25 mg, 0.5 tab, PO, 03/01/2013 03/02/2013 Discontinued tablet BID, 30 tab, Substitution Allowed, TAB amantadine 100 mg, 1 cap, Route: 02/20/2013 03/02/2013 Discontinued PO, Drug form: CAP, BID-02-09, Dosing Weight 51.818, kg, Start date: 02/20/13 12:00:00, Duration: 60 day, Stop date: 04/21/13 7:00:00 senna 8.6 mg oral tablet 25.8 mg, 3 tab, Route: 02/18/2013 03/02/2013 Discontinued PO, Drug Form: TAB, Dosing Weight 51.818, kg, Daily, PRN Constipation, Start date: 02/18/13 11:25:00, Duration: 90 day, Stop date: 05/19/13 11:24:00 senna 8.6 mg oral tablet 25.8 mg, 3 tab, PO, 03/01/2013 03/31/2013 Ordered Daily, PRN, 90 tab, Constipation, Substitution Allowed, Maintenance, TAB fexofenadine 60 mg oral 180 mg, 3 tab, PO, 03/01/2013 03/31/2013 Ordered tablet Daily, 90 tab, Substitution Allowed, TAB atorvastatin 20 mg oral 10 mg, 0.5 tab, PO, 03/01/2013 03/31/2013 Ordered tablet Bedtime, 15 tab, Substitution Allowed, TAB amantadine 100 mg oral 100 mg, 1 cap, PO, 03/01/2013 03/31/2013 Ordered capsule BID-02-09, 60 cap, Substitution Allowed, CAP Tylenol 650 mg, 2 tab, Route: 02/13/2013 03/02/2013 Discontinued PO, Drug form: TAB, Q4H, Dosing Weight 51.818, kg, PRN Pain Score 1-5, Start date: 02/13/13 21:14:00, Duration: 60 day, Stop date: 04/14/13 21:00:00 Estrace Vaginal Cream 0.1 1 appl, TOP, Every Other 03/01/2013 03/31/2013 Ordered mg/g Day, 30 gm, Substitution Allowed, CRM docusate sodium 100 mg 100 mg, 1 cap, PO, BID, 03/01/2013 03/31/2013 Ordered oral capsule 60 cap, Substitution Allowed, CAP baclofen 0.5 mg/mL 151.68 mcg, INTRATHECAL, 03/01/2013 Ordered intrathecal solution Continuous, PRN, 1 unit, Other -See Comment, Substitution Allowed, INJ escitalopram 20 mg oral 10 mg, 0.5 tab, PO, 03/01/2013 03/31/2013 Ordered tablet Bedtime, 15 tab, Substitution Allowed, TAB LORAzepam 0.5 mg oral 0.5 mg, 1 tab, PO, QAM, 03/02/2013 04/01/2013 Ordered tablet 30 tab, Substitution Allowed Antonella 24 Hour Allergy 180 mg, 3 tab, Route: 02/23/2013 03/02/2013 Discontinued PO, Drug form: TAB, Daily, Dosing Weight 51.818, kg, Start date: 02/23/13 8:30:00, Duration: 60 day, Stop date: 04/23/13 8:30:00 Vitamin B Complex oral 1 cap, PO, Daily, 30 03/01/2013 03/31/2013 Ordered capsule cap, Substitution Allowed, Maintenance, CAP Shields 5/325 oral tablet 1 tab, Route: PO, Drug 02/14/2013 02/14/2013 Completed Form: TAB, Dosing Weight 51.818, kg, ONCE, Start date: 02/14/13 22:55:00, Stop date: 02/14/13 22:55:00 docusate sodium 100 mg 100 mg, 1 cap, Route: 02/15/2013 03/02/2013 Discontinued oral capsule PO, Drug form: CAP, BID, Dosing Weight 51.818, kg, Start date: 02/15/13 22:01:00, Duration: 90 day, Stop date: 05/16/13 21:00:00 pravastatin 40 mg, Route: PO, Drug 02/13/2013 02/12/2013 Deleted form: TAB, Daily, Dosing Weight 51.818, kg, Start date: 02/13/13 8:30:00, Duration: 90 day, Stop date: 05/13/13 8:30:00 bisacodyl 10 mg, 1 supp, Route: 02/16/2013 02/16/2013 Completed [place], Drug form: SUPP, ONCE, Dosing Weight 51.818, kg, Start date: 02/16/13 13:29:00, Stop date: 02/16/13 13:29:00 Shields 5/325 oral tablet 1 tab, Route: PO, Drug 02/15/2013 02/16/2013 Discontinued Form: TAB, Dosing Weight 51.818, kg, Q6H, PRN Pain Score 6-10, Start date: 02/15/13 13:53:00, Duration: 30 day, Stop date: 03/17/13 13:52:00 B Complex 100 1 tab, Route: PO, Drug 02/13/2013 03/02/2013 Discontinued Form: TAB, Dosing Weight 51.818, kg, Daily, Start date: 02/13/13 8:30:00, Duration: 90 day, Stop date: 05/13/13 8:30:00 Claritin 10 mg, 1 tab, Route: PO, 02/18/2013 02/18/2013 Discontinued Drug form: TAB, Daily, Dosing Weight 51.818, kg, Start date: 02/18/13 8:30:00, Duration: 90 day, Stop date: 05/18/13 8:30:00 Claritin 10 mg, 1 tab, Route: PO, 02/14/2013 02/17/2013 Discontinued Drug form: TAB, Daily, Dosing Weight 51.818, kg, Start date: 02/14/13 18:30:00, Duration: 90 day, Stop date: 05/15/13 8:30:00 Lipitor 10 mg, 0.5 tab, Route: 02/12/2013 03/02/2013 Discontinued PO, Drug form: TAB, Bedtime, Start date: 02/12/13 21:00:00, Duration: 90 day, Stop date: 05/12/13 21:00:00 Claritin 10 mg oral tablet 10 mg, 1 tab, PO, Daily, 02/12/2013 03/01/2013 Discontinued PRN, 90 tab, as needed for allergy symptoms, Substitution Allowed, TAB B-Complex SR oral tablet, Substitution Allowed, 02/12/2013 03/01/2013 Discontinued extended release Maintenance mirtazapine 7.5 mg, 0.5 tab, Route: 02/12/2013 02/12/2013 Canceled PO, Drug form: TAB, Bedtime, Dosing Weight 51.818, kg, Start date: 02/12/13 21:00:00, Duration: 90 day, Stop date: 05/12/13 21:00:00 metoprolol tartrate 12.5 mg, 0.5 tab, Route: 02/12/2013 02/28/2013 Discontinued PO, Drug form: TAB, Q12H, Dosing Weight 51.818, kg, Start date: 02/12/13 21:00:00, Duration: 60 day, Stop date: 04/14/13 9:00:00 Lexapro 10 mg, 0.5 tab, Route: 02/13/2013 03/02/2013 Discontinued PO, Drug form: TAB, Bedtime, Dosing Weight 51.818, kg, Start date: 02/13/13 21:00:00, Duration: 90 day, Stop date: 05/13/13 21:00:00 Ativan 0.5 mg, 1 tab, Route: 02/12/2013 02/12/2013 Discontinued PO, Drug form: TAB, BID, Dosing Weight 51.818, kg, Start date: 02/12/13 21:00:00, Duration: 90 day, Stop date: 05/13/13 8:30:00 Claritin 10 mg, 1 tab, Route: PO, 02/12/2013 02/22/2013 Discontinued Drug form: TAB, Daily, Dosing Weight 51.818, kg, PRN as needed for allergy symptoms, Start date: 02/12/13 12:32:00, Duration: 90 day, Stop date: 05/13/13 12:31:00 Estrace Vaginal Cream 0.1 1 appl, Route: TOP, Drug 02/13/2013 03/02/2013 Discontinued mg/g form: CRM, Every Other Day, Dosing Weight 51.818, kg, Start date: 02/13/13 21:00:00, Duration: 90 day, Stop date: 05/12/13 21:00:00 Lexapro 10 mg, 0.5 tab, Route: 02/13/2013 02/13/2013 Discontinued PO, Drug form: TAB, Daily, Dosing Weight 51.818, kg, Start date: 02/13/13 8:30:00, Duration: 90 day, Stop date: 05/13/13 8:30:00 Ativan 0.25 mg, 0.5 tab, Route: 02/12/2013 03/02/2013 Discontinued PO, Drug form: TAB, BID, Dosing Weight 51.818, kg, Start date: 02/12/13 22:00:00, Duration: 90 day, Stop date: 05/13/13 21:00:00 docusate sodium 100 mg 100 mg, 1 cap, Route: 02/12/2013 02/15/2013 Discontinued oral capsule PO, Drug form: CAP, Every Other Day, Dosing Weight 51.818, kg, PRN as needed for constipation, Start date: 02/12/13 16:01:00, Duration: 90 day, Stop date: 05/13/13 16:00:00 LORAzepam 0.5 mg oral 0.25 mg, 0.5 tab, PO, 03/02/2013 04/01/2013 Ordered tablet Bedtime, 15 tab, Substitution Allowed phenytoin 777.27 mg, 15.55 mL, 02/12/2013 03/02/2013 Discontinued Route: IVP, Drug form: INJ, PRN, Dosing Weight 51.818, kg, PRN Seizure, Start date: 02/12/13 12:20:00, Duration: 60 day, Stop date: 04/13/13 12:19:00 LORAzepam 2 mg, 1 mL, Route: IVP, 02/12/2013 03/02/2013 Discontinued Drug form: INJ, PRN, Dosing Weight 51.818, kg, PRN Seizure, Start date: 02/12/13 12:20:00, Duration: 60 day, Stop date: 04/13/13 12:19:00 phenobarbital 1,036.36 mg, 15.94 mL, 02/12/2013 03/02/2013 Discontinued Route: IVP, Drug form: INJ, PRN, Dosing Weight 51.818, kg, PRN Seizure, Start date: 02/12/13 12:20:00, Duration: 60 day, Stop date: 04/13/13 12:19:00 amantadine 100 mg, 1 cap, Route: 02/16/2013 02/20/2013 Discontinued PO, Drug form: CAP, Daily, Dosing Weight 51.818, kg, Start date: 02/16/13 8:30:00, Duration: 60 day, Stop date: 04/16/13 8:30:00 amantadine 100 mg, 1 cap, Route: 02/15/2013 02/15/2013 Discontinued PO, Drug form: CAP, QAM, Dosing Weight 51.818, kg, Start date: 02/15/13 6:30:00, Duration: 60 day, Stop date: 04/15/13 6:30:00 calcium-vitamin D 500 2 tab, Route: CHEW, Drug 02/12/2013 02/21/2013 Discontinued mg-400 intl units oral Form: CHEWTAB, Dosing tablet, chewable Weight 51.818, kg, BID, Start date: 02/12/13 21:00:00, Duration: 90 day, Stop date: 05/13/13 8:30:00 baclofen Route: INTRATHECAL, Drug 02/12/2013 03/02/2013 Discontinued form: INJ, Continuous, PRN Other -See Comment, Start date: 02/12/13 18:16:00, Stop date: 04/13/13 18:15:00 BD Normal Saline Flush 10 mL, Route: IV, Drug 02/19/2013 03/02/2013 Discontinued Form: INJ, PRN, PRN Line Flush, Start date: 02/19/13 15:54:00, Duration: 60 day, Stop date: 04/20/13 15:53:00 baclofen 90.04 mcg/day, Route: 02/13/2013 02/12/2013 Deleted INTRATHECAL, Drug form: INJ, Daily, Dosing Weight 51.818, kg, Start date: 02/13/13 8:30:00, Duration: 90 day, Stop date: 05/13/13 8:30:00 Ativan 0.25 mg, 0.5 tab, Route: 02/25/2013 03/02/2013 Discontinued PO, Drug form: TAB, Daily, Dosing Weight 51.818, kg, PRN as needed for anxiety, Start date: 02/25/13 9:43:00, Duration: 30 day, Stop date: 03/27/13 9:42:00 mirabegron mirabegron, 25 mg, 02/21/2013 02/28/2013 Discontinued Route: PO, Daily, 02/21/13 8:30:00, Duration: 90 day, Stop date: 05/21/13 8:30:00 mirtazapine 7.5 mg oral 7.5 mg, 1 tab, PO, 02/12/2013 03/01/2013 Discontinued tablet Bedtime, 30 tab, Substitution Allowed, TAB Vital Signs Most recent to oldest 1 2 3 [Reference Range]: Height 167.64 cm 167.64 cm 167.64 cm (02/27/2013 07:48:00) (02/27/2013 07:37:00) (02/12/2013 11:57:00) Current Weight 55.455 kg 55.455 kg 54.727 kg (03/02/2013 08:51:00) (03/01/2013 10:14:00) (02/27/2013 07:48:00) Temperature Oral 96.1 DegF [96.4-99.1 DegF] *LOW* (02/19/2013 16:00:00) Systolic Blood Pressure 104 mmHg 110 mmHg 105 mmHg [90-140 mmHg] (03/02/2013 07:00:00) (03/02/2013 00:00:00) (03/01/2013 16:47: 00) Diastolic Blood Pressure 67 mmHg 69 mmHg 67 mmHg [60-90 mmHg] (03/02/2013 07:00:00) (03/02/2013 00:00:00) (03/01/2013 16:47: 00) Respiratory Rate [14-20 18 BRMIN 18 BRMIN 18 BRMIN BRMIN] (03/02/2013 07:00:00) (03/02/2013 00:00:00) (03/01/2013 16:47:00) Peripheral Pulse Rate 91 bpm 66 bpm 74 bpm [60-100 bpm] (03/02/2013 07:00:00) (03/02/2013 00:00:00) (03/01/2013 16:47: 00) Weight 51.818 kg (02/12/2013 11:57:00) Results URINALYSIS Most recent to oldest [Reference Range]: 1 2 3 UA Turbidity [Clear] Clear (02/13/2013 06:00:54) UA Color [Yellow] Yellow *NA* (02/13/2013 06:00:54) UA pH [5.0-8.0] 6.0 (02/13/2013 06:00:54) UA Spec Grav [<=1.030] 1.020 (02/13/2013 06:00:54) UA Glucose [Negative] Negative (02/13/2013 06:00:54) UA Blood [Negative] Negative (02/13/2013 06:00:54) UA Ketones [Negative] Negative *NA* (02/13/2013 06:00:54) UA Protein [Negative] Negative (02/13/2013 06:00:54) UA Urobilinogen [0.1-1.0 EU/dL] 0.2 EU/dL (02/13/2013 06:00:54) UA Bili [Negative] Negative *NA* (02/13/2013 06:00:54) UA Leuk Est [Negative] Trace *ABN* (02/13/2013 06:00:54) UA Nitrite [Negative] Negative (02/13/2013 06:00:54) UA WBC [None Seen /HPF] 3-5 /HPF (02/13/2013 06:00:54) UA Bacteria [None Seen /HPF] Occasional /HPF (02/13/2013 06:00:54) UA Sq Epi [Few /LPF] Few /LPF (02/13/2013 06:00:54) Micro? Performed (02/13/2013 06:00:54) CHEMISTRY Most recent to oldest 1 2 3 [Reference Range]: Sodium Lvl [135-145 mEq/L] 143 mEq/L 142 mEq/L 141 mEq/L (02/21/2013 05:40:00) (02/19/2013 04:20:00) (02/13/2013 06:15:00) Potassium Lvl [3.5-5.1 4.1 mEq/L 4.2 mEq/L 4.0 mEq/L mEq/L] (02/21/2013 05:40:00) (02/19/2013 04:20:00) (02/13/2013 06:15:00) Chloride Lvl [95-109 mEq/L] 103 mEq/L 104 mEq/L 100 mEq/L (02/21/2013 05:40:00) (02/19/2013 04:20:00) (02/13/2013 06:15:00) CO2 [24-32 mEq/L] 33 mEq/L 31 mEq/L 35 mEq/L *HI* (02/19/2013 04:20:00) *HI* (02/21/2013 05:40:00) (02/13/2013 06:15:00) AGAP [10.0-20.0 mEq/L] 11.1 mEq/L 11.2 mEq/L 10.0 mEq/L (02/21/2013 05:40:00) (02/19/2013 04:20:00) (02/13/2013 06:15:00) Creatinine Lvl [0.5-1.4 0.5 mg/dL 0.4 mg/dL 0.5 mg/dL mg/dL] (02/21/2013 05:40:00) *LOW* (02/13/2013 06:15:00) (02/19/2013 04:20:00) eGFR 102 mL/min/1.73m2 1 110 mL/min/1.73m2 2 102 mL/min/1.73m2 3 *NA* *NA* *NA* (02/21/2013 05:40:00) (02/19/2013 04:20:00) (02/13/2013 06:15:00) BUN [7-22 mg/dL] 15 mg/dL 17 mg/dL 14 mg/dL (02/21/2013 05:40:00) (02/19/2013 04:20:00) (02/13/2013 06:15:00) B/C Ratio [6-25] 28 *HI* (02/13/2013 06:15:00) Glucose Lvl [70-99 mg/dL] 104 mg/dL 4 104 mg/dL 5 103 mg/dL 6 *HI* *HI* *HI* (02/21/2013 05:40:00) (02/19/2013 04:20:00) (02/13/2013 06:15:00) Total Protein [6.4-8.4 6.9 g/dL g/dL] (02/13/2013 06:15:00) Albumin Lvl [3.5-5.0 g/dL] 4.1 g/dL (02/13/2013 06:15:00) Globulin [2.0-4.0 g/dL] 2.8 g/dL (02/13/2013 06:15:00) A/G Ratio [0.7-1.6] 1.5 (02/13/2013 06:15:00) Calcium Lvl [8.5-10.5 8.8 mg/dL 8.4 mg/dL 9.4 mg/dL mg/dL] (02/21/2013 05:40:00) *LOW* (02/13/2013 06:15:00) (02/19/2013 04:20:00) Phosphorus [2.5-4.5 mg/dL] 4.7 mg/dL *HI* (02/13/2013 06:15:00) Magnesium Lvl [1.8-2.4 2.0 mg/dL mg/dL] (02/13/2013 06:15:00) ALT [0-65 unit/L] 20 unit/L (02/13/2013 06:15:00) AST [0-37 unit/L] 14 unit/L (02/13/2013 06:15:00) Alk Phos [39-136 unit/L] 44 unit/L (02/13/2013 06:15:00) Bili Total [0.2-1.3 mg/dL] 1.6 mg/dL *HI* (02/13/2013 06:15:00) CHD Risk [3.90-5.80] 3.36 *LOW* (02/13/2013 06:15:00) Chol [<=199 mg/dL] 198 mg/dL 7 (02/13/2013:15:00) Trig [<=149 mg/dL] 116 mg/dL 8 (02/13/2013 06:15:00) HDL [>=61 mg/dL] 59 mg/dL 9 *LOW* (02/13/2013:15:00) LDL [<=99 mg/dL] 116 mg/dL 10 *HI* (02/13/2013 06:15:00) Hgb A1C [<=5.6 %] 5.9 % 11 *HI* (02/13/2013 06:15:54) T4 Free [0.76-1.46 ng/dL] 0.92 ng/dL (02/13/2013:15:00) TSH [0.360-3.740 uIU/mL] 3.450 uIU/mL (02/13/2013 06:15:00) 1Result Comment: The eGFR is calculated using [...] eGFR should be multiplied by the estimated BMI.2Result Comment: The eGFR is calculated using the CKD-EPI formula. In most young, healthy individualsthe eGFR will be >90 mL/ min/1.73m2. The eGFR declines with age. An eGFR [...] eGFR should be multiplied by the estimated BMI.3Result Comment: The eGFR is calculated using the CKD-EPI formula. In most young, healthy individualsthe eGFR will be >90 mL/ min/1.73m2. The eGFR declines with age. An eGFR [...] eGFR should be multiplied by the estimated BMI.4Interpretive Data: Adult reference range values reflect the clinical guidelines of the [place] [employer].5Interpretive Data: Adult reference range values reflect the clinical guidelines of the [place] [employer].6Interpretive Data: Adult reference range values reflect the clinical guidelines of the [place] [employer].7Interpretive Data: Reference ranges are based on the clinical guidelines of the [employer] National Cholesterol Education Program (ATP III, 2001).8Interpretive Data: Reference ranges are based on the clinical guidelines of the [employer] National Cholesterol Education Program (ATP III , 2001).9Interpretive Data: Reference ranges are based on the clinical guidelines of the [employer] National Cholesterol Education Program (ATP III, 2001) .10Interpretive Data: Reference ranges are based on the clinical guidelines of the [employer] National Cholesterol Education Program (ATP III, 2001).11Interpretive Data: The reference range is based on the clinical practice guidelines of the [place] [employer] for diabetes screening; levels of 5.7%-6.4% are indicative of pre-diabetes.HEMATOLOGY Most recent to oldest 1 2 3 [Reference Range]: WBC [3.7-10.4 K/CMM] 7.8 K/CMM 7.5 K/CMM 7.4 K/CMM (02/26/2013 04:45:22) (02/20/2013 06:07:15) (02/19/2013 04:20:00) RBC [4.20-5.40 M/CMM] 3.93 M/CMM 4.06 M/CMM 3.73 M/CMM *LOW* *LOW* *LOW* (02/26/2013 04:45:22) (02/20/2013 06:07:15) (02/19/2013 04:20:00) Hgb [12.0-16.0 g/dL] 12.1 g/dL 12.2 g/dL 11.6 g/dL (02/26/2013 04:45:22) (02/20/2013 06:07:15) *LOW* (02/19/2013 04:20:00) Hct [36.0-48.0 %] 35.9 % 37.2 % 34.0 % *LOW* (02/20/2013 06:07:15) *LOW* (02/26/2013 04:45:22) (02/19/2013 04:20:00) MCV [81.0-99.0 fL] 91.5 fL 91.7 fL 91.2 fL (02/26/2013 04:45:22) (02/20/2013 06:07:15) (02/19/2013 04:20:00) MCH [27.0-31.0 pg] 30.9 pg 30.1 pg 31.1 pg (02/26/2013 04:45:22) (02/20/2013 06:07:15) *HI* (02/19/2013 04:20:00) MCHC [32.0-36.0 g/dL] 33.8 g/dL 32.8 g/dL 34.0 g/dL (02/26/2013 04:45:22) (02/20/2013 06:07:15) (02/19/2013 04:20:00) RDW [11.5-14.5 %] 12.6 % 12.3 % 12.4 % (02/26/2013 04:45:22) (02/20/2013 06:07:15) (02/19/2013 04:20:00) Platelet [133-450 K/CMM] 310 K/CMM 310 K/CMM 270 K/CMM (02/26/2013 04:45:22) (02/20/2013 06:07:15) (02/19/2013 04:20:00) MPV [7.4-10.4 fL] 8.2 fL 8.3 fL 8.9 fL (02/26/2013 04:45:22) (02/20/2013 06:07:15) (02/19/2013 04:20:00) Segs [45.0-75.0 %] 54.0 % 50.9 % 47.9 % (02/26/2013 04:45:22) (02/20/2013 06:07:15) (02/19/2013 04:20:00) Lymphocytes [20.0-40.0 %] 34.0 % 38.3 % 40.4 % (02/26/2013 04:45:22) (02/20/2013 06:07:15) *HI* (02/19/2013 04:20:00) Monocytes [2.0-12.0 %] 8.2 % 7.6 % 9.3 % (02/26/2013 04:45:22) (02/20/2013 06:07:15) (02/19/2013 04:20:00) Eosinophils [0.0-4.0 %] 2.9 % 2.9 % 2.3 % (02/26/2013 04:45:22) (02/20/2013 06:07:15) (02/19/2013 04:20:00) Basophils [0.0-1.0 %] 0.9 % 0.3 % 0.1 % (02/26/2013 04:45:22) (02/20/2013 06:07:15) (02/19/2013 04:20:00) Segs-Bands # [1.5-8.1 4.2 K/CMM 3.8 K/CMM 3.5 K/CMM K/CMM] (02/26/2013 04:45:22) (02/20/2013 06:07:15) (02/19/2013 04:20:00) Lymphocytes # [1.0-5.5 2.7 K/CMM 2.9 K/CMM 3.0 K/CMM K/CMM] (02/26/2013 04:45:22) (02/20/2013 06:07:15) (02/19/2013 04:20:00) Monocytes # [0.0-0.8 K/CMM] 0.6 K/CMM 0.6 K/CMM 0.7 K/CMM (02/26/2013 04:45:22) (02/20/2013 06:07:15) (02/19/2013 04:20:00) Eosinophils # [0.0-0.5 0.2 K/CMM 0.2 K/CMM 0.2 K/CMM K/CMM] (02/26/2013 04:45:22) (02/20/2013 06:07:15) (02/19/2013 04:20:00) Basophils # [0.0-0.2 K/CMM] 0.1 K/CMM 0.0 K/CMM 0.0 K/CMM (02/26/2013 04:45:22) (02/20/2013 06:07:15) (02/19/2013 04:20:00) PT [12.0-14.7 seconds] 13.3 seconds (02/13/2013 06:15:39) INR [0.85-1.17] 0.99 12 (02/13/2013 06:15:39) PTT [22.9-35.8 seconds] 31.6 seconds 13 (02/13/2013 06:15:39) 12Interpretive Data: RECOMMENDED RANGES FOR PROTIME INR: 2.0-3.0 for most medical and surgical thromboembolic states. 2.5-3.5 for artificial heart valves and recurrent embolism. INR SHOULD BE USED ONLY FOR PATIENTS ON STABLE ANTICOAGULANT THERAPY.13Interpretive Data: Heparin Therapeutic Range: 57 - 92 SecondsIMMUNOLOGY Most recent to oldest [Reference Range]: 1 2 3 Prealbumin [18.0-45.0 mg/dL] 22.0 mg/dL (02/13/2013 06:15:39) Microbiology Reports PROCEDURE:Culture: Urine STATUS: Auth (Verified) BODY SITE: COLLECTED DATE/TIME: 02/13/2013 06:04:02 SOURCE: Urine, Catheterized FREE TEXT SOURCE: FINAL REPORTS Final Report>10,000/cfu/ml Escherichia coli <1000/cfu/ml Skin MilviaPRELIMINARY REPORTS Preliminary Report>10, 000/cfu/ml Gram Negative Rods, Lactose Fermenters Identification And Sensitivity Pending <1000/cfu/ml Skin MilviaSUSCEPTIBILITY REPORT EC Antibiotic INTERP. VDIL Amikacin S Ampicillin R Ampicillin/Sulbactam I Cefazolin S Cefepime S Ceftriaxone S Cefuroxime S ESBL Confirmation - Gentamicin R Levofloxacin R Meropenem S Nitrofurantoin S Piperacillin/Tazobactam S Tetracycline S Tobramycin I Trimethoprim/Sulfamethoxazole S
--- OUTSIDE RECORDS SUMMARY | 2018-08-28 10:46 | XMS REPORT | CCD ---
:1945 Author Organization [facility] Care Team Providers Name Role Phone Nikki Munoz Referring Provider Allergies, Adverse Reactions, Alerts Substance Reaction Status NKDA Active Problem List Condition Effective Dates Status Anoxic brain injury Active Anxiety 2013 Active Back pain Active Cardiac arrest Resolved Fibroids Resolved Incontinence Active Irregular heart beat 2013 Active Migraine Active Neurogenic bladder 01/21/2009 Active Pneumonia Resolved Skin allergy 2013 Resolved Sleep apnea Resolved Urinary tract infection 2013 Active Weakness Active Vital Signs Most recent to oldest [Reference Range]: 1 Height 167.64 cm (08/31/2013 11:25:00) Systolic Blood Pressure [90-140 mmHg] 108 mmHg (08/31/2013 11:25:00) Diastolic Blood Pressure [60-90 mmHg] 73 mmHg (08/31/2013 11:25:00) Respiratory Rate [14-20 BRMIN] 18 BRMIN (08/31/2013 11:25:00) Peripheral Pulse Rate [60-100 bpm] 100 bpm (08/31/2013 11:25:00) Weight 54.545 kg (08/31/2013 11:25:00)
--- OUTSIDE RECORDS SUMMARY | 2018-08-28 10:46 | XMS REPORT | Summary of Care ---
:1945 Author Encounter DAVIDE Vail(MARCIAL) [id number] Date(s): 01/04/14 - 01/04/[address] [address] [facility] Discharge Disposition: Home Physician Attending: Stacy Coleman MD Physician_Referring: Stacy Coleman MD Reason for Visit 300 UNITS Vital Signs Most recent to oldest [Reference Range]: 1 Height 167.64 cm (01/04/14 9:15 AM) Temperature Oral [96.4-99.1 DegF] 98.1 DegF (01/04/14 9:15 AM) Systolic Blood Pressure [90-140 mmHg] 110 mmHg (01/04/14 9:15 AM) Diastolic Blood Pressure [60-90 mmHg] 73 mmHg (01/04/14 9:15 AM) Respiratory Rate [14-20 BRMIN] 18 BRMIN (01/04/14 9:15 AM) Peripheral Pulse Rate [60-100 bpm] 102 bpm *HI* (01/04/14 9:15 AM) Weight 54.545 kg (01/04/14 9:15 AM) Body Mass Index 19.41 m2 (01/04/14 9:15 AM) Problem List Condition Effective Dates Status Health Status Informant Anoxic brain injury(Confirmed) Active Anxiety(Confirmed) 2013 Active Back pain(Confirmed) Active Cardiac arrest(Confirmed) Resolved Fibroids(Confirmed) Resolved Incontinence(Confirmed) Active Irregular heart beat(Confirmed) 2013 Active Migraine(Confirmed) Active Neurogenic bladder(Confirmed) 01/21/09 Active Pneumonia(Confirmed) Resolved Skin allergy(Confirmed) 2013 Resolved Sleep apnea(Confirmed) Resolved Urinary tract infection(Confirmed) 2013 Active Weakness(Confirmed) Active Allergies, Adverse Reactions, Alerts Substance Reaction Severity Status NKDA Active Medications Lexapro 20 mg oral tablet 20 mg=1 tab, PO, Daily, # 30 tab, 3 Refill(s) Start Date: 01/04/14 Status: Orderedpravastatin 40 mg oral tablet 40 mg=1 tab, PO, Bedtime, # 30 tab, 0 Refill(s) Start Date: 01/04/14 Status: Ordered Medications Administered During Your Visit No data available for this section Immunizations No data available for this section Social History Social History Type Response Smoking Status Never smoker, Exposure to Tobacco Smoke None, Cigarette Smoking Last 365 Days No, Reg Smoking Cessation Counseling No
--- OUTSIDE RECORDS SUMMARY | 2018-08-28 10:46 | XMS REPORT | Summary of Care ---
:1945 Author Encounter [facility] Tawanda_rosario(MARCIAL) [id number] Date(s): 03/19/14 - 03/19/[address] [address] [place] Discharge Disposition: Home Physician Attending: Stacy Coleman MD Physician_Referring: Stacy Coleman MD Reason for Visit PUMP REFILL Problem List Condition Effective Dates Status Health [...]
--- OUTSIDE RECORDS SUMMARY | 2018-08-28 10:46 | XMS REPORT | Summary of Care ---
:1945 Author Encounter DAVIDE Vail(MARCIAL) [id number] Date(s): 02/13/14 - 02/13/[address] [phone] [place] Discharge Disposition: Home Physician Attending: Stacy Coleman MD Physician_Referring: Stacy Coleman MD Reason for Visit F/U Vital Signs Most recent to oldest [Reference Range]: 1 Height 167.64 cm (02/13/14 10:27 AM) Systolic Blood Pressure [90-140 mmHg] 103 mmHg (02/13/14 10:27 AM) Diastolic Blood Pressure [60-90 mmHg] 72 mmHg (02/13/14 10:27 AM) Respiratory Rate [14-20 BRMIN] 18 BRMIN (02/13/14 10:27 AM) Peripheral Pulse Rate [60-100 bpm] 107 bpm *HI* (02/13/14 10:27 AM) Weight 55.455 kg (02/13/14 10:27 AM) Body Mass Index 19.73 m2 (02/13/14 10:27 AM) Problem List Condition Effective Dates Status Health Status Informant Anoxic brain injury(Confirmed) Active Anxiety(Confirmed) 2013 Active Back pain(Confirmed) Active Cardiac arrest(Confirmed) Resolved Fibroids(Confirmed) Resolved Incontinence(Confirmed) Active Irregular heart beat(Confirmed) 2013 Active Migraine(Confirmed) Active Neurogenic bladder(Confirmed) 01/21/09 Active Pneumonia(Confirmed) Resolved Skin allergy(Confirmed) 2012 Resolved Sleep apnea(Confirmed) Resolved Urinary tract infection(Confirmed) 2012 Active Weakness(Confirmed) Active Allergies, Adverse Reactions, Alerts Substance Reaction Severity Status NKDA Active Medications divalproex sodium delayed release 500 mg, PO, BID, 0 Refill(s) Start Date: 02/13/14 Status: OrderedLexapro 20 mg oral tablet 20 mg=1 tab, PO, Daily, # 30 tab, 0 Refill(s) Start Date: 02/13/14 Status: Ordered Medications Administered During Your Visit No data available for this section Immunizations No data available for this section Social History Social History Type Response Smoking Status Never smoker, Exposure to Tobacco Smoke None, Cigarette Smoking Last 365 Days No, Reg Smoking Cessation Counseling No
--- OUTSIDE RECORDS SUMMARY | 2018-08-28 10:47 | XMS REPORT | Summary of Care ---
:1945 Author Encounter DAVIDE Vail(MARCIAL) [id number] Date(s): 06/21/14 - 06/21/[address] [phone] [facility] Discharge Disposition: Home Physician Attending: Allan Chung MD Physician_Referring: Allan Chung MD Reason for Visit F/U Vital Signs Most recent to oldest [Reference Range]: 1 Height 167.64 cm (06/21/14 10:23 AM) Systolic Blood Pressure [90-140 mmHg] 117 mmHg (06/21/14 10:23 AM) Diastolic Blood Pressure [60-90 mmHg] 79 mmHg (06/21/14 10:23 AM) Respiratory Rate [14-20 BRMIN] 20 BRMIN (06/21/14 10:23 AM) Peripheral Pulse Rate [60-100 bpm] 89 bpm (06/21/14 10:23 AM) Weight 60.455 kg (06/21/14 10:23 AM) Body Mass Index 21.51 m2 (06/21/14 10:23 AM) Problem List Condition Effective Dates Status Health Status Informant Anoxic brain injury(Confirmed) Active Anxiety(Confirmed) 2013 Active Back pain(Confirmed) Active Cardiac arrest(Confirmed) Resolved Fibroids(Confirmed) Resolved Incontinence(Confirmed) Active Irregular heart beat(Confirmed) 2013 Active Migraine(Confirmed) Active Neurogenic bladder(Confirmed) 01/21/09 Active Pneumonia(Confirmed) Resolved Skin allergy(Confirmed) 2012 Resolved Sleep apnea(Confirmed) Resolved Spasticity(Confirmed) Active Urinary tract infection(Confirmed) 2013 Active Weakness(Confirmed) Active Allergies, Adverse Reactions, Alerts Substance Reaction Severity Status NKDA Active Medications donepezil 5 mg oral tablet 5 mg=1 tab, PO, Daily, # 90 tab, 2 Refill(s), Pharmacy: [facility]/pharmacy #[id number] Start Date: 06/21/14 Status: Ordered Medications Administered During Your Visit No data available for this section Immunizations No data available for this section Social History Social History Type Response Smoking Status Never smoker, Exposure to Tobacco Smoke None, Cigarette Smoking Last 365 Days No, Reg Smoking Cessation Counseling No
--- OUTSIDE RECORDS SUMMARY | 2018-08-28 10:47 | XMS REPORT | Summary of Care ---
:1945 Author Encounter DAVIDE Vail(MARCIAL) [id number] Date(s): 06/21/14 - 06/21/[address] [phone] [facility] Discharge Disposition: Home Physician Attending: [...] Daily, # 90 tab, 2 Refill(s), Pharmacy: [facility]/pharmacy #[id number] Start Date: 06/21/14 Status: Ordered Medications Administered During Your Visit No data available for this section Immunizations No data available for this section Social History Social History Type Response Smoking Status Never smoker, Exposure to Tobacco Smoke None, Cigarette Smoking Last 365 Days No, Reg Smoking Cessation Counseling No
--- OUTSIDE RECORDS SUMMARY | 2018-08-28 10:47 | XMS REPORT | Summary of Care ---
:1945 Author Encounter DAVIDE Vail(MARCIAL) [id number] Date(s): 03/28/14 - 03/28/[address] [phone] [facility] Discharge Disposition: Home Physician Attending: Allan Chung MD Physician_Referring: Allan Chung MD Reason for Visit EVAL Vital Signs Most recent to oldest [Reference Range]: 1 Height 167.64 cm (03/28/14 9:09 AM) Systolic Blood Pressure [90-140 mmHg] 111 mmHg (03/28/14 9:09 AM) Diastolic Blood Pressure [60-90 mmHg] 71 mmHg (03/28/14 9:09 AM) Respiratory Rate [14-20 BRMIN] 20 BRMIN (03/28/14 9:09 AM) Peripheral Pulse Rate [60-100 bpm] 90 bpm (03/28/14 9:09 AM) Weight 57.273 kg (03/28/14 9:09 AM) Body Mass Index 20.38 m2 (03/28/14 9:09 AM) Problem List Condition Effective Dates Status [...] Substance Reaction Severity Status NKDA Active Medications darifenacin 7.5 mg oral tablet, extended release 7.5 mg=1 tab, PO, Daily, # 30 tab, 0 Refill(s) Start Date: 03/28/14 Status: Ordered Medications Administered During Your Visit No data available for this section Immunizations No data available for this section Social History Social History Type Response Smoking Status Never smoker, Exposure to Tobacco Smoke None, Cigarette Smoking Last 365 Days No, Reg Smoking Cessation Counseling No
--- OUTSIDE RECORDS SUMMARY | 2018-08-28 10:47 | XMS REPORT | Summary of Care ---
:1945 Author Encounter DAVIDE Vail(MARCIAL) [id number] Date(s): 06/21/14 - 06/21/[address] [phone] [facility] Discharge Disposition: Home Physician Attending: Allan [...] Daily, # 90 tab, 2 Refill(s), Pharmacy: [facility]/pharmacy #[id number] Start Date: 06/21/14 Status: Ordered Medications Administered During Your Visit No data available for this section Immunizations No data available for this section Social History Social History Type Response Smoking Status Never smoker, Exposure to Tobacco Smoke None, Cigarette Smoking Last 365 Days No, Reg Smoking Cessation Counseling No
--- OUTSIDE RECORDS SUMMARY | 2018-08-28 10:47 | XMS REPORT | Summary of Care ---
:1945 Author Encounter DAVIDE Vail(MARCIAL) [id number] Date(s): 06/21/14 - 06/21/[address] [phone] [facility] Discharge Disposition: Home Physician Attending: [...] Daily, # 90 tab, 2 Refill(s), Pharmacy: [facility]/pharmacy #[id number] Start Date: 06/21/14 Status: Ordered Medications Administered During Your Visit No data available for this section Immunizations No data available for this section Social History Social History Type Response Smoking Status Never smoker, Exposure to Tobacco Smoke None, Cigarette Smoking Last 365 Days No, Reg Smoking Cessation Counseling No
--- OUTSIDE RECORDS SUMMARY | 2018-08-28 10:47 | XMS REPORT | Summary of Care ---
:1945 Author Encounter DAVIDE Vail(MARCIAL) [id number] Date(s): 06/21/14 - 06/21/[address] [phone] [facility] Discharge Disposition: Home Physician Attending: Allan Chung [...] Daily, # 90 tab, 2 Refill(s), Pharmacy: [facility]/pharmacy #[id number] Start Date: 06/21/14 Status: Ordered Medications Administered During Your Visit No data available for this section Immunizations No data available for this section Social History Social History Type Response Smoking Status Never smoker, Exposure to Tobacco Smoke None, Cigarette Smoking Last 365 Days No, Reg Smoking Cessation Counseling No
--- OUTSIDE RECORDS SUMMARY | 2018-08-28 10:47 | XMS REPORT | Summary of Care ---
:1945 Author Encounter DAVIDE Vail(MARCIAL) [id number] Date(s): 06/21/14 - 06/21/[address] [phone] [facility] Discharge Disposition: Home Physician Attending: Allan [...] Daily, # 90 tab, 2 Refill(s), Pharmacy: [facility]/pharmacy #[id number] Start Date: 06/21/14 Status: Ordered Medications Administered During Your Visit No data available for this section Immunizations No data available for this section Social History Social History Type Response Smoking Status Never smoker, Exposure to Tobacco Smoke None, Cigarette Smoking Last 365 Days No, Reg Smoking Cessation Counseling No
--- OUTSIDE RECORDS SUMMARY | 2018-08-28 10:47 | XMS REPORT | Summary of Care ---
:1945 Author Encounter DAVIDE Vail(MARCIAL) [id number] Date(s): 02/07/15 - 02/07/[address] Discharge Disposition: Home Physician Attending: Allan Chung MD Physician_Referring: Allan Chung MD Vital Signs Most recent to oldest [Reference Range]: 1 Height 167.64 cm (02/07/15 10:20 AM) Blood Pressure [90-140/60-90 mmHg] 100/72 mmHg (02/07/15 10:20 AM) Respiratory Rate [14-20 BRMIN] 20 BRMIN (02/07/15 10:20 AM) Peripheral Pulse Rate [60-100 bpm] 92 bpm (02/07/15 10:20 AM) Weight 56.818 kg (02/07/15 10:20 AM) Body Mass Index 20.22 m2 (02/07/15 10:20 AM) Problem List Condition Effective Dates Status Health Status Informant Anoxic brain injury(Confirmed) Active Anxiety(Confirmed) 2013 Active Back pain(Confirmed) Active Cardiac arrest(Confirmed) Resolved Fibroids(Confirmed) Resolved Incontinence(Confirmed) Active Irregular heart beat(Confirmed) 2013 Active Migraine(Confirmed) Active Neurogenic bladder(Confirmed) 01/21/09 Active Pneumonia(Confirmed) Resolved Skin allergy(Confirmed) 2013 Resolved Sleep apnea(Confirmed) Resolved Spasticity(Confirmed) Active Urinary tract infection(Confirmed) 2013 Active Weakness(Confirmed) Active Allergies, Adverse Reactions, Alerts Substance Reaction Severity Status NKDA Active Medications donepezil 10 mg oral tablet 10 mg=1 tab, PO, Daily, # 30 tab, 2 Refill(s), Pharmacy: [id number] Start Date: 02/07/15 Status: Ordered Results No data available for this section Immunizations No data available for this section Procedures Procedure Date Related Diagnosis Body Site Video urodynamic study 8/19/13 Spinal cord stimulation1 01/21/09 Arthroscopy of knee2 Tubal ligation3 [id number](L) [id number] & 1981 Social History Social History Type Response Smoking Status Never smoker; Exposure to Tobacco Smoke None; Cigarette Smoking Last 365 Days No; Reg Smoking Cessation Counseling No Assessment and Plan No data available for this section
--- OUTSIDE RECORDS SUMMARY | 2018-08-28 10:48 | XMS REPORT | Summary of Care ---
:1945 Author Encounter HQ Tawanda_rosario(MARCIAL) [id number] Date(s): 06/04/14 - 06/04/[address] [address] [facility] Discharge Disposition: Home Physician Attending: Stacy Coleman MD Physician_Referring: Stacy Coleman MD Reason for Visit [employer] Problem List Condition Effective Dates Status Health [...]
--- OUTSIDE RECORDS SUMMARY | 2018-08-28 10:48 | XMS REPORT | Summary of Care ---
:1945 Author Organization [facility] Address [address] [place], [place] [address] Encounter HQ Yared(MARCIAL) [id number] Date(s): 06/06/15 - 06/06/[address] Discharge Disposition: Home Attending Physician: Allan Chung MD Referring Physician: Allan Chung MD Vital Signs Most recent to oldest [Reference Range]: 1 Height 167.64 cm (06/06/15 10:08 AM) Blood Pressure [90-140/60-90 mmHg] 96/68 mmHg (06/06/15 10:08 AM) Respiratory Rate [14-20 BRMIN] 20 BRMIN (06/06/15 10:08 AM) Peripheral Pulse Rate [60-100 bpm] 104 bpm *HI* (06/06/15 10:08 AM) Weight 55.455 kg (06/06/15 10:08 AM) Body Mass Index 19.73 m2 (06/06/15 10:08 AM) Problem List Condition Effective Dates Status [...] Substance Reaction Severity Status NKDA Active Medications amantadine 100 mg oral capsule 100 mg=1 cap, PO, Daily, # 90 cap, 2 Refill(s), Pharmacy: [id number] Start Date: 06/06/15 Status: Ordereddivalproex sodium 250 mg oral enteric coated tablet (Depakote) 250 mg=1 tab, PO, BID, # 180 tab, 2 Refill(s), Pharmacy: [facility] Start Date: 06/06/15 Status: OrderedLexapro 10 mg oral tablet 10 mg=1 tab, PO, Daily, # 90 tab, 2 Refill(s), Pharmacy: [id number] Start Date: 06/06/15 Status: Ordered Results No data available for this section Immunizations No data available for this section Procedures Procedure Date Related Diagnosis Body Site Video urodynamic study 03/19/13 Spinal cord stimulation1 01/21/09 Arthroscopy of knee2 Tubal ligation3 [id number](L) [id number] & 1981 Social History Social History Type Response Smoking Status Never smoker; Exposure to Tobacco Smoke None; Cigarette Smoking Last 365 Days No; Reg Smoking Cessation Counseling No Assessment and Plan No data available for this section
--- OUTSIDE RECORDS SUMMARY | 2018-08-28 10:48 | XMS REPORT | Summary of Care ---
:1945 Author Organization [facility] Address [address] [place], [place] [address] Encounter HQ Yared(FIN) [id number] Date(s): 07/18/15 - 07/18/[address] [phone] Discharge Disposition: Home Attending Physician: tSacy Coleman MD Referring Physician: Stacy Coleman MD Vital Signs Most recent to oldest [Reference Range]: 1 Height 167.64 cm (07/18/15 8:58 AM) Blood Pressure [90-140/60-90 mmHg] 105/68 mmHg (07/18/15 8:58 AM) Respiratory Rate [14-20 BRMIN] 18 BRMIN (07/18/15 8:58 AM) Peripheral Pulse Rate [60-100 bpm] 97 bpm (07/18/15 8:58 AM) Weight 54.545 kg (07/18/15 8:58 AM) Body Mass Index 19.41 m2 (07/18/15 8:58 AM) Problem List Condition Effective Dates Status [...] Substance Reaction Severity Status NKDA Active Medications ONAbotulinumtoxinA 600 unit, Route: IM, ONCALL, Dosing Weight 55.455, kg, Start date: 07/18/15 10: 00:00, Duration: 30 day, Stop date: 08/17/15 9:59:00 Start Date: 07/18/15 Stop Date: 07/18/15 Status: CompletedXanax 0.25 mg oral tablet 0.25 mg=1 tab, PO, Daily, PRN as needed for anxiety, Give before next botulinum toxin injections., #5 tab, 0 Refill(s) Start Date: 07/18/15 Stop Date: 07/19/15 Status: Completed Results No data available for this section Immunizations No data available for this section Procedures Procedure Date Related Diagnosis Body Site Video urodynamic study 03/19/13 Spinal cord stimulation1 01/21/09 Arthroscopy of knee2 Tubal ligation3 [id number](L) [id number] & 1981 Social History Social History Type Response Smoking Status Never smoker; Type: Cigarettes; Exposure to Tobacco Smoke None; Cigarette Smoking Last 365 Days No; Reg Smoking Cessation Counseling No Assessment and Plan No data available for this section
--- OUTSIDE RECORDS SUMMARY | 2018-08-28 10:48 | XMS REPORT | Summary of Care ---
:1945 Author Encounter DAVIDE Neff_rosario(MARCIAL) [id number] Date(s): 11/22/14 - 11/22/[address] Discharge Disposition: Home Physician Attending: Stacy Coleman MD Physician_Referring: Stacy Coleman MD Vital Signs No data available for this section Problem List Condition Effective Dates Status Health [...] Medications No data available for this section Results No data available for this section Immunizations No data available for this section Procedures Procedure Date Related Diagnosis Body Site Video urodynamic study 03/19/13 Spinal cord stimulation1 01/21/09 Arthroscopy of knee2 Tubal ligation3 [id number](L) [id number] & 1981 Social History Social History Type Response Smoking Status Never smoker; Exposure to Tobacco Smoke None; Cigarette Smoking Last 365 Days No; Reg Smoking Cessation Counseling No Assessment and Plan No data available for this section
--- OUTSIDE RECORDS SUMMARY | 2018-08-28 10:48 | XMS REPORT | Summary of Care ---
:1945 Author Encounter HQ Tawanda_rosario(MARCIAL) [id number] Date(s): 05/31/14 - 05/31/[address] [address] [facility] Discharge Disposition: Home Physician Attending: Stacy Coleman MD Physician_Referring: Stacy Coleman MD Reason for Visit 500/40ML Problem List Condition Effective Dates Status Health [...]
--- OUTSIDE RECORDS SUMMARY | 2018-08-28 10:48 | XMS REPORT | Summary of Care ---
:1945 Author Encounter DAVIDE Vail(MARCIAL) [id number] Date(s): 07/12/14 - 07/12/[address] [phone] [facility] Discharge Disposition: Home Physician Attending: Stacy Coleman MD Physician_Referring: Stacy Coleman MD Reason for Visit F/U Vital Signs Most recent to oldest [Reference Range]: 1 Height 167.64 cm (07/12/14 9:18 AM) Systolic Blood Pressure [90-140 mmHg] 102 mmHg (07/12/14 9:18 AM) Diastolic Blood Pressure [60-90 mmHg] 71 mmHg (07/12/14 9:18 AM) Respiratory Rate [14-20 BRMIN] 20 BRMIN (07/12/14 9:18 AM) Peripheral Pulse Rate [60-100 bpm] 69 bpm (07/12/14 9:18 AM) Weight 61.364 kg (07/12/14 9:18 AM) Body Mass Index 21.84 m2 (07/12/14 9:18 AM) Problem List Condition Effective Dates Status [...] Reaction Severity Status NKDA Active Medications ONAbotulinumtoxinA 500 unit, Route: IM, Drug form: INJ, ONCALL, Dosing Weight 57.273, kg, Start date: 12/12/14 10:00:00, Duration: 30 day, Stop date: 08/11/14 9:59:00 Notes: "TO BE RECONSTITUTED AND ADMINISTERED ONLY BY A PHYSICIAN"Reconstitute with preservative freeNS only. Stability=4 hours after reconstitution. (Same As : Botox) Start Date: 07/12/14 Stop Date: 07/12/14 Status: Completed Medications Administered During Your Visit No data available for this section Immunizations No data available for this section Social History Social History Type Response Smoking Status Never smoker, Exposure to Tobacco Smoke None, Cigarette Smoking Last 365 Days No, Reg Smoking Cessation Counseling No
--- OUTSIDE RECORDS SUMMARY | 2018-08-28 10:48 | XMS REPORT | Summary of Care ---
:1945 Author Organization [facility] Address [address] [place], [place] [address] Encounter HQ Yared(MARCIAL) [id number] Date(s): 04/18/15 - 04/18/[address] Discharge Disposition: Home Attending Physician: Stacy Coleman MD Referring Physician: Stacy Coleman MD Vital Signs Most recent to oldest [Reference Range]: 1 Height 167.64 cm (04/18/15 9:25 AM) Most recent to oldest [Reference Range]: 1 Blood Pressure [90-140/60-90 mmHg] 99/50 mmHg (04/18/15 9:25 AM) Most recent to oldest [Reference Range]: 1 Peripheral Pulse Rate [60-100 bpm] 106 bpm *HI* (04/18/15 9:25 AM) Most recent to oldest [Reference Range]: 1 Weight 55.455 kg (04/18/15 9:25 AM) Most recent to oldest [Reference Range]: 1 Body Mass Index 19.73 m2 (04/18/15 9:25 AM) Problem List Condition Effective Dates Status [...] 600 unit, Route: IM, ONCALL, Dosing Weight 58.182, kg, Start date: 04/18/15 10: 00:00, Duration: 30 day, Stop date: 05/18/15 9:59:00 Start Date: 04/18/15 Stop Date: 04/18/15 Status: Completed Results No data available for this section Immunizations No data available for this section Procedures Procedure Date Related Diagnosis Body Site Video urodynamic study 03/19/13 Spinal cord stimulation1 01/21/09 Arthroscopy of knee2 Tubal ligation3 [id number](L) [id number] & 1981 Social History Social History Type Response Smoking Status Never smoker; Exposure to Tobacco Smoke None; Cigarette Smoking Last 365 Days No; Reg Smoking Cessation Counseling No Assessment and Plan No data available for this section
--- OUTSIDE RECORDS SUMMARY | 2018-08-28 10:48 | XMS REPORT | Summary of Care ---
:1945 Author Encounter DAVIDE Vail(MARCIAL) [id number] Date(s): 10/11/14 - 10/11/[address] [phone] Discharge Disposition: Home Physician Attending: Stacy Coleman MD Physician_Referring: Stacy Coleman MD Vital Signs Most recent to oldest [Reference Range]: 1 2 Height 167.64 cm 167.64 cm (10/11/14 10:07 AM) (10/11/14 9:12 AM) Blood Pressure [90-140/60-90 mmHg] 115/55 mmHg (10/11/14 9:12 AM) Respiratory Rate [14-20 BRMIN] 18 BRMIN (10/11/14 9:12 AM) Peripheral Pulse Rate [60-100 bpm] 86 bpm (10/11/14 9:12 AM) Weight 61.818 kg 61.818 kg (10/11/14 10:07 AM) (10/11/14 9:12 AM) Body Mass Index 22 m2 22 m2 (10/11/14 10:07 AM) (10/11/14 9:12 AM) Problem List Condition Effective Dates Status [...] Daily, # 90 cap, 2 Refill(s), Pharmacy: [facility] Start Date: 10/11/14 Status: Ordereddivalproex sodium 250 mg oral enteric coated tablet 250 mg=1 tab, PO, BID, # 90 tab, 0 Refill(s) Start Date: 10/11/14 Stop Date: 10/11/14 Status: Discontinueddivalproex sodium 250 mg oral enteric coated tablet 250 mg=1 tab, PO, BID, # 180 tab, 2 Refill(s), Pharmacy: [facility] Start Date: 10/11/14 Status: Ordereddonepezil 5 mg oral tablet 5 mg=1 tab, PO, Daily, # 90 tab, 2 Refill(s), Pharmacy: [facility] Start Date: 10/11/14 Status: OrderedLexapro 10 mg oral tablet 10 mg=1 tab, PO, Daily, # 90 tab, 2 Refill(s), Pharmacy: [facility] Start Date: 10/11/14 Status: OrderedONAbotulinumtoxinA 600 unit, Route: IM, ONCALL, Dosing Weight 61.364, kg, Start date: 10/11/14 11: 00:00, Duration: 30 day, Stop date: 11/10/14 10:59:00 Start Date: 10/11/14 Stop Date: 10/11/14 Status: Completedoxybutynin 10 mg oral tablet, extended release 10 mg=1 tab, PO, Daily, # 30 tab, 0 Refill(s) Start Date: 10/11/14 Status: Ordered Results No data available for this section Immunizations No data available for this section Procedures No data available for this section Social History Social History Type Response Smoking Status Never smoker; Exposure to Tobacco Smoke None; Cigarette Smoking Last 365 Days No; Reg Smoking Cessation Counseling No Assessment and Plan No data available for this section
--- OUTSIDE RECORDS SUMMARY | 2018-08-28 10:48 | XMS REPORT | Summary of Care ---
:1945 Author Encounter DAVIDE Vail(MARCIAL) [id number] Date(s): 01/10/15 - 01/10/[address] [phone] Discharge Disposition: Home Physician Attending: Stacy Coleman MD Physician_Referring: Stacy Coleman MD Vital Signs Most recent to oldest [Reference Range]: 1 Height 167.64 cm (01/10/15 10:11 AM) Weight 58.182 kg (01/10/15 10:11 AM) Body Mass Index 20.7 m2 (01/10/15 10:11 AM) Problem List Condition Effective Dates Status [...] 600 unit, Route: IM, ONCALL, Dosing Weight 61.818, kg, Start date: 01/10/15 16: 00:00, Duration: 30 day, Stop date: 02/09/15 15:59:00 Start Date: 01/10/15 Stop Date: 01/10/15 Status: Completed Results No data available for this section Immunizations No data available for this section Procedures Procedure Date Related Diagnosis Body Site Video urodynamic study 03/19/13 Spinal cord stimulation1 01/21/09 Arthroscopy of knee2 Tubal ligation3 [id number](L) [id number] & 1981 Social History Social History Type Response Smoking Status Never smoker; Exposure to Tobacco Smoke None; Cigarette Smoking Last 365 Days No; Reg Smoking Cessation Counseling No Assessment and Plan No data available for this section
--- OUTSIDE RECORDS SUMMARY | 2018-08-28 10:48 | XMS REPORT | Summary of Care ---
:1945 Author Organization [facility] Address [address] [place] [phone] Encounter HQ Tawanda_rosario(FIN) [id number] Date(s): 05/16/15 - 05/16/[address] [phone] Discharge Disposition: Home Attending Physician: Stacy Coleman MD Referring Physician: Stacy Coleman MD Vital Signs No data [...] stimulation1 01/21/09 Arthroscopy of knee2 Tubal ligation3 [id number](L) [id number] & 1981 Social History Social History Type Response Smoking Status Never smoker; Exposure to Tobacco Smoke None; Cigarette Smoking Last 365 Days No; Reg Smoking Cessation Counseling No Assessment and Plan No data available for this section
--- OUTSIDE RECORDS SUMMARY | 2018-08-28 10:49 | XMS REPORT | Summary of Care ---
:1945 Author Organization [facility] Address [address] [place] [phone] Encounter HQ Tawanda_rosario(FIN) [id number] Date(s): 12/13/16 - 12/13/[address] Discharge Disposition: Home or Self Care Attending Physician: Stacy Coleman MD Referring Physician: Stacy Coleman MD Vital Signs Most recent to oldest [Reference Range]: 1 2 Height 167.64 cm 167.64 cm (12/13/16 2:52 PM) (12/13/16 9:01 AM) Blood Pressure [90-140/60-90 mmHg] 104/63 mmHg (12/13/16 9:01 AM) Respiratory Rate [14-20 BRMIN] 18 BRMIN (12/13/16 9:01 AM) Peripheral Pulse Rate [60-100 bpm] 95 bpm (12/13/16 9:01 AM) Weight 67.727 kg (12/13/16 9:01 AM) Body Mass Index 24.1 m2 (12/13/16 9:01 AM) Problem List Condition Effective Dates Status Health Status Informant Anoxic brain injury(Confirmed) Active Anxiety(Confirmed) 2013 Active Back pain(Confirmed) Active Cardiac arrest(Confirmed) Resolved Fibroids(Confirmed) Resolved Incontinence(Confirmed) Active Irregular heart beat(Confirmed) 2013 Active Migraine(Confirmed) Active Major depressive disorder, Active recurrent, moderate(Confirmed) Neurogenic bladder(Confirmed) 01/21/09 Active Pneumonia(Confirmed) Resolved Skin allergy(Confirmed) 2013 Resolved Sleep apnea(Confirmed) Resolved Spasticity(Confirmed) Active Urinary tract infection(Confirmed) 2013 Active Weakness(Confirmed) Active Allergies, Adverse Reactions, Alerts Substance Reaction Severity Status NKDA Active Medications oxybutynin 10 mg oral tablet, extended release 10 mg=1 tab, PO, Daily, 0 Refill(s) Start Date: 12/13/16 Status: Ordered Results No data available for this section Immunizations No data available for this section Procedures Procedure Date Related Diagnosis Body Site Video urodynamic study 03/19/13 Spinal cord stimulation1 01/21/09 Arthroscopy of knee2 Chemodenervation Tubal ligation3 [id number](L) [id number] & 1981 Social History Social History Type Response Substance Abuse Use: None. Sexual Sexually active: No. Exercise Exercise duration: 0. Employment/School Status: Retired. Highest education level: High school. Alcohol Never Smoking Status Never smoker; Type: Cigarettes; Ready to change: No; Concerns about tobacco use in household: No; Exposure to Tobacco Smoke None; Cigarette Smoking Last 365 Days No; Reg Smoking Cessation Counseling No Assessment and Plan No data available for this section
--- OUTSIDE RECORDS SUMMARY | 2018-08-28 10:49 | XMS REPORT | Summary of Care ---
:1945 Author Organization [facility] Address [address] [place], [place] [address] Encounter HQ Tawanda_rosario(MARCIAL) [id number] Date(s): 09/17/16 - 09/17/[address] [place] Discharge Disposition: Home or Self Care Attending Physician: Allan Chung MD Referring Physician: Allan Chung MD Vital Signs No data available for this section Problem List Condition Effective Dates Status Health Status Informant Anoxic brain injury(Confirmed) Active Anxiety(Confirmed) 2013 Active Back pain(Confirmed) Active Cardiac arrest(Confirmed) Resolved Fibroids(Confirmed) Resolved Incontinence(Confirmed) Active Irregular heart beat(Confirmed) 2012 Active Migraine(Confirmed) Active Major depressive disorder, Active [...] 01/21/09 Arthroscopy of knee2 Chemodenervation Tubal ligation3 7ckqycws4(L) [id number] & 1981 Social History Social History Type Response Substance Abuse Use: None. Sexual Sexually active: No. Exercise Exercise duration: 0. Employment/School Status: Retired. Highest education level: High school. Alcohol Never Smoking Status Never smoker; Ready to change: No; Concerns about tobacco use in household: No; Exposure to Tobacco Smoke None; Cigarette Smoking Last 365 Days No; Reg Smoking Cessation Counseling No Assessment and Plan No data available for this section
--- OUTSIDE RECORDS SUMMARY | 2018-08-28 10:49 | XMS REPORT | Summary of Care ---
:1945 Author Organization [facility] Address [address] [place] [phone] Encounter HQ Tawanda_rosario(FIN) [id number] Date(s): 11/12/16 - 11/12/[address] [place] Discharge Disposition: Home or Self Care Attending Physician: Stacy Coleman MD Referring Physician: Stacy Coleman MD Vital Signs Most recent to oldest [Reference Range]: 1 Height 167.64 cm (11/12/16 9:17 AM) Blood Pressure [90-140/60-90 mmHg] 113/79 mmHg (11/12/16 9:17 AM) Respiratory Rate [14-20 BRMIN] 20 BRMIN (11/12/16 9:17 AM) Peripheral Pulse Rate [60-100 bpm] 92 bpm (11/12/16 9:17 AM) Weight 69.545 kg (11/12/16 9:17 AM) Body Mass Index 24.75 m2 (11/12/16 9:17 AM) Problem List Condition Effective Dates Status [...] Substance Reaction Severity Status NKDA Active Medications levothyroxine 50 mcg (0.05 mg) oral tablet 50 microgram=1 tab, PO, Daily, # 30 tab, 0 Refill(s) Start Date: 11/12/16 Status: OrderedONAbotulinumtoxinA 500 unit, Route: IM, ONCALL, Dosing Weight 70.455, kg, Start date: 11/12/16 11: 00:00 CDT, Duration: 30 day, Stop date: 12/12/16 10:59:00 CDT Start Date: 11/12/16 Stop Date: 11/12/16 Status: Completedoxybutynin 15 mg oral tablet, extended release 15 mg=1 tab, PO, Daily, # 30 tab, 0 Refill(s) Start Date: 11/12/16 Status: Ordered Results No data available for this section Immunizations No data available for this section Procedures Procedure Date Related Diagnosis Body Site Chemodenervation of one extremity; 5 or more 11/12/16 muscles Chemodenervation of one extremity; 5 or more 11/12/16 muscles Video urodynamic study 03/19/13 Spinal cord stimulation1 01/21/09 Arthroscopy of knee2 Chemodenervation Tubal ligation3 [id number](L) [id number] & 1981 Social History Social History Type [...]
--- OUTSIDE RECORDS SUMMARY | 2018-08-28 10:49 | XMS REPORT | Summary of Care ---
:1945 Author Organization [facility] Address [address] [place] [address] Encounter HQ Tawanda_rosario(MARCIAL) [id number] Date(s): 06/04/16 - 06/04/[address] [place] [phone] Discharge Disposition: Home or Self Care Attending Physician: Allan Chung MD Referring Physician: Allan Chung MD Vital Signs Most recent to oldest [Reference Range]: 1 Height 167.64 cm (06/04/16 10:34 AM) Blood Pressure [90-140/60-90 mmHg] 105/44 mmHg (06/04/16 10:34 AM) Respiratory Rate [14-20 BRMIN] 16 BRMIN (06/04/16 10:34 AM) Peripheral Pulse Rate [60-100 bpm] 93 bpm (06/04/16 10:34 AM) Weight 66.818 kg (06/04/16 10:34 AM) Body Mass Index 23.78 m2 (06/04/16 10:34 AM) Problem List Condition Effective Dates Status [...] Substance Reaction Severity Status NKDA Active Medications Aleve Caplet 220 mg, PO, PRN, 0 Refill(s) Start Date: 06/04/16 Status: OrderedClaritin 10 mg, PRN, 0 Refill(s) Start Date: 06/04/16 Status: Ordereddivalproex sodium 250 mg oral enteric coated tablet (Depakote) 250 mg=1 tab, PO, BID, # 180 tab, 2 Refill(s), Pharmacy: [facility] [place] Start Date: 06/04/16 Status: Ordered Results No data available for this section Immunizations No data available for this section Procedures Procedure Date Related Diagnosis Body Site Video urodynamic study 03/19/13 Spinal cord stimulation1 01/21/09 Arthroscopy of knee2 Tubal ligation3 0xqiiwsc2(L) [id number] & 1981 Social History Social History Type [...]
--- OUTSIDE RECORDS SUMMARY | 2018-08-28 10:49 | XMS REPORT | Summary of Care ---
:1945 Author Organization [facility] Address [address] [place], [place] [address] Encounter HQ Yared(MARCIAL) [id number] Date(s): 10/31/15 - 10/31/[address] [phone] Discharge Disposition: Home Attending Physician: Stacy Coleman MD Referring Physician: Stacy Coleman MD Vital Signs Most recent to oldest [Reference Range]: 1 2 Height 167.64 cm 167.64 cm (10/31/15 10:15 AM) (10/31/15 9:37 AM) Blood Pressure [90-140/60-90 mmHg] 119/78 mmHg (10/31/15 9:37 AM) Respiratory Rate [14-20 BRMIN] 18 BRMIN (10/31/15 9:37 AM) Peripheral Pulse Rate [60-100 bpm] 104 bpm *HI* (10/31/15 9:37 AM) Weight 57.273 kg (10/31/15 9:37 AM) Body Mass Index 20.38 m2 (10/31/15 9:37 AM) Problem List Condition Effective Dates Status [...] Dosing Weight 55.455, kg, Start date: 10/31/15 11: 00:00, Duration: 30 day, Stop date: 11/30/15 10:59:00 Start Date: 10/31/15 Stop Date: 10/31/15 Status: Completed Results No data available for this section Immunizations No data available for this section Procedures Procedure Date Related Diagnosis Body Site Video urodynamic study 03/19/13 Spinal cord stimulation1 01/21/09 Arthroscopy of knee2 Tubal ligation3 0ssiejfu2(L) [id number] & 1981 Social History Social History Type Response Smoking Status Never smoker; Type: Cigarettes; Exposure to Tobacco Smoke None; Cigarette Smoking Last 365 Days No; Reg Smoking Cessation Counseling No Assessment and Plan No data available for this section
--- OUTSIDE RECORDS SUMMARY | 2018-08-28 10:49 | XMS REPORT | Summary of Care ---
:1945 Author Organization [facility] Address [address] [place] [phone] Encounter HQ Tawanda_rosario(FIN) [id number] Date(s): 11/05/16 - 11/05/[address] [phone] Discharge Disposition: Home or Self Care Attending Physician: Stacy Coleman MD Referring Physician: Stacy Coleman MD Vital Signs Most recent to oldest [Reference Range]: 1 Height 167.64 cm (11/05/16 10:20 AM) Blood Pressure [90-140/60-90 mmHg] 121/80 mmHg (11/05/16 10:20 AM) Respiratory Rate [14-20 BRMIN] 18 BRMIN (11/05/16 10:20 AM) Peripheral Pulse Rate [60-100 bpm] 82 bpm (11/05/16 10:20 AM) Weight 70.455 kg (11/05/16 10:20 AM) Body Mass Index 25.07 m2 (11/05/16 10:20 AM) Problem List Condition Effective Dates [...] Reaction Severity Status NKDA Active Medications Lexapro 10 mg oral tablet 10 mg=1 tab, PO, Daily, # 90 tab, 0 Refill(s), Pharmacy: [facility] Start Date: 08/13/16 Stop Date: 08/14/16 Status: Completed Results No data available for this section Immunizations No data available for this section Procedures Procedure Date Related Diagnosis Body Site Video urodynamic study 03/19/13 Spinal cord stimulation1 01/21/09 Arthroscopy of knee2 Chemodenervation Tubal ligation3 3qqksbpz2(L) [id number] & 1981 Social History Social History Type [...]
--- OUTSIDE RECORDS SUMMARY | 2018-08-28 10:49 | XMS REPORT | Summary of Care ---
:1945 Author Organization [facility] Address [address] [place] [phone] Encounter HQ Tawanda_rosario(FIN) [id number] Date(s): 05/10/16 - 05/10/[address] [place] Discharge Disposition: Home or Self Care Attending Physician: Stacy Coleman MD Referring Physician: Stacy Coleman MD Vital Signs Most recent to oldest [Reference Range]: 1 Height 167.64 cm (05/10/16 2:22 PM) Blood Pressure [90-140/60-90 mmHg] 113/56 mmHg (05/10/16 2:22 PM) Respiratory Rate [14-20 BRMIN] 18 BRMIN (05/10/16 2:22 PM) Weight 70.455 kg (05/10/16 2:22 PM) Body Mass Index 25.07 m2 (05/10/16 2:22 PM) Problem List Condition Effective Dates Status Health [...] 600 unit, Route: IM, ONCALL, Dosing Weight 64.091, kg, Start date: 05/10/16 16: 00:00 CDT, Duration: 30 day, Stop date: 06/09/16 14:59:00 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
--- OUTSIDE RECORDS SUMMARY | 2018-08-28 10:49 | XMS REPORT | Summary of Care ---
:1945 Author Organization [facility] Address [address] [place] [phone] Encounter HQ Tawanda_rosario(MARCIAL) [id number] Date(s): 08/13/16 - 08/13/[address] [place] [phone] Discharge Disposition: Home or Self Care Attending Physician: Allan Chung MD Referring Physician: Stacy Coleman MD Vital Signs Most recent to oldest [Reference Range]: 1 2 Height 167.64 cm (08/13/16 10:03 AM) Temperature Oral [96.4-99.1 DegF] 96.6 DegF (08/13/16 10:03 AM) Blood Pressure [90-140/60-90 mmHg] 113/71 mmHg 113/71 mmHg (08/13/16 10:03 AM) (08/13/16 9:24 AM) Respiratory Rate [14-20 BRMIN] 18 BRMIN 20 BRMIN (08/13/16 10:03 AM) (08/13/16 9:24 AM) Peripheral Pulse Rate [60-100 bpm] 87 bpm 87 bpm (08/13/16 10:03 AM) (08/13/16 9:24 AM) Weight 70.455 kg (08/13/16 10:03 AM) Body Mass Index 25.07 m2 (08/13/16 10:03 AM) Problem List Condition Effective Dates Status Health Status Informant Anoxic brain injury(Confirmed) Active Anxiety(Confirmed) 2012 Active Back pain(Confirmed) Active Cardiac arrest(Confirmed) Resolved Fibroids(Confirmed) Resolved Incontinence(Confirmed) Active Irregular heart beat(Confirmed) 2012 Active Migraine(Confirmed) Active Major depressive disorder, Active recurrent, moderate(Confirmed) Neurogenic bladder(Confirmed) 01/21/09 Active Pneumonia(Confirmed) Resolved Skin allergy(Confirmed) 2012 Resolved Sleep apnea(Confirmed) Resolved Spasticity(Confirmed) Active Urinary tract infection(Confirmed) 2012 Active Weakness(Confirmed) Active Allergies, Adverse Reactions, Alerts Substance Reaction Severity Status NKDA Active Medications divalproex sodium 125 mg oral enteric coated tablet (Depakote) 125 mg=1 tab, PO, BID, # 60 tab, 2 Refill(s), Pharmacy: [facility] Start Date: 08/13/16 Status: OrderedLexapro 10 mg oral tablet 10 mg=1 tab, PO, Daily, # 90 tab, 1 Refill(s), Pharmacy: [facility] Start Date: 08/14/16 Status: OrderedONAbotulinumtoxinA 500 unit, Route: IM, ONCALL, Dosing Weight 70.455, kg, Start date: 08/13/16 11: 00:00 PNP, Duration: 30 day, Stop date: 09/12/16 10:59:00 PNP Start Date: 08/13/16 Stop Date: 08/13/16 Status: Completed Results No data available for this section Immunizations No data available for this section Procedures Procedure Date Related Diagnosis Body Site Chemodenervation of one extremity; 5 or more 08/13/16 muscles Video urodynamic study 03/19/13 Spinal cord stimulation1 01/21/09 Arthroscopy of knee2 Chemodenervation Tubal ligation3 2rdvpbwy5(L) [id number] & 1981 Social History Social History Type [...]
--- OUTSIDE RECORDS SUMMARY | 2018-08-28 10:49 | XMS REPORT | Summary of Care ---
:1945 Author Organization [facility] Address [address] [place] [phone] Encounter HQ Tawanda_rosario(FIN) [id number] Date(s): 02/06/16 - 02/06/[address] Discharge Disposition: Home Attending Physician: Stacy Coleman MD Referring Physician: Stacy Coleman MD Vital Signs Most recent to oldest [Reference Range]: 1 2 Height 167.64 cm 167.64 cm (02/06/16 10:53 AM) (02/06/16 10:08 AM) Blood Pressure [90-140/60-90 mmHg] 109/78 mmHg 109/78 mmHg (02/06/16 10:53 AM) (02/06/16 10:08 AM) Respiratory Rate [14-20 BRMIN] 20 BRMIN 20 BRMIN (02/06/16 10:53 AM) (02/06/16 10:08 AM) Peripheral Pulse Rate [60-100 bpm] 96 bpm 96 bpm (02/06/16 10:53 AM) (02/06/16 10:08 AM) Weight 64.091 kg 64.091 kg (02/06/16 10:53 AM) (02/06/16 10:08 AM) Body Mass Index 22.81 m2 22.81 m2 (02/06/16 10:53 AM) (02/06/16 10:08 AM) Problem List Condition Effective Dates Status Health Status Informant Anoxic brain injury(Confirmed) Active Anxiety(Confirmed) 2013 Active Back pain(Confirmed) Active Cardiac arrest(Confirmed) Resolved Fibroids(Confirmed) Resolved Incontinence(Confirmed) Active Irregular heart beat(Confirmed) 2012 Active Migraine(Confirmed) Active Neurogenic bladder(Confirmed) 01/21/09 Active Pneumonia(Confirmed) Resolved Skin allergy(Confirmed) 2012 Resolved Sleep apnea(Confirmed) Resolved Spasticity(Confirmed) Active Urinary tract infection(Confirmed) 2012 Active Weakness(Confirmed) Active Allergies, Adverse Reactions, Alerts Substance Reaction Severity Status NKDA Active Medications atorvastatin 20 mg oral tablet 20 mg=1 tab, PO, Bedtime, # 30 tab, 0 Refill(s) Start Date: 02/06/16 Status: Ordereddivalproex sodium 250 mg oral enteric coated tablet (Depakote) 250 mg=1 tab, PO, BID, # 180 tab, 2 Refill(s), Pharmacy: [facility] Start Date: 02/06/16 Status: OrderedLexapro 10 mg oral tablet 10 mg=1 tab, PO, Daily, # 90 tab, 2 Refill(s), Pharmacy: [facility] Start Date: 02/06/16 Status: OrderedONAbotulinumtoxinA 600 unit, Route: IM, ONCALL, Dosing Weight 57.273, kg, Start date: 02/06/16 12: 00:00 CDT, Duration: 30 day, Stop date: 03/07/16 11:59:00 CDT Start Date: 02/06/16 Stop Date: 02/06/16 Status: Completed Results No data available for this section Immunizations No data available for this section Procedures Procedure Date Related Diagnosis Body Site Video urodynamic study 03/19/13 Spinal cord stimulation1 01/21/09 Arthroscopy of knee2 Tubal ligation3 [id number](L) [id number] & 1981 Social History Social History Type [...]
--- OUTSIDE RECORDS SUMMARY | 2018-08-28 10:49 | XMS REPORT | Summary of Care ---
:1945 Author Organization [facility] Address [address] [place], [place] [phone] Encounter HQ Yared(MARCIAL) [id number] Date(s): 11/14/15 - 11/14/[address] Discharge Disposition: Home Attending Physician: Stacy Coleman MD Referring Physician: Allan Chung MD Vital Signs Most recent to oldest [Reference Range]: 1 Height 167.64 cm (11/14/15 9:24 AM) Blood Pressure [90-140/60-90 mmHg] 115/76 mmHg (11/14/15 9:24 AM) Respiratory Rate [14-20 BRMIN] 18 BRMIN (11/14/15 9:24 AM) Peripheral Pulse Rate [60-100 bpm] 90 bpm (11/14/15 9:24 AM) Weight 62.273 kg (11/14/15 9:24 AM) Body Mass Index 22.16 m2 (11/14/15 9:24 AM) Problem List Condition Effective Dates Status [...] Substance Reaction Severity Status NKDA Active Medications ALPRAZOLam 0.25 mg oral tablet 0.25 mg=1 tab, PO, PRN anxiety, stress, # 1 tab, 0 Refill(s) Start Date: 11/14/15 Status: Orderedamantadine 100 mg oral capsule 100 mg=1 cap, PO, Daily, # 90 cap, 4 Refill(s), Pharmacy: [facility] Start Date: 11/14/15 Status: Ordereddivalproex sodium 250 mg oral enteric coated tablet (Depakote) 250 mg=1 tab, PO, BID, # 180 tab, 2 Refill(s), Pharmacy: [facility] Start Date: 11/14/15 Status: OrderedLexapro 10 mg oral tablet 10 mg=1 tab, PO, Daily, # 90 tab, 2 Refill(s), Pharmacy: [facility] Start Date: 11/14/15 Status: Ordered Results No data available for this section Immunizations No data available for this section Procedures Procedure Date Related Diagnosis Body Site Video urodynamic study 03/19/13 Spinal cord stimulation1 01/21/09 Arthroscopy of knee2 Tubal ligation3 [id number](L) [id number] & 1981 Social History Social History Type Response Substance Abuse Use: None. Sexual Sexually active: No. Exercise Exercise duration: 0. Employment/School Status: Retired. Highest education level: High school. Alcohol Never Smoking Status Never smoker; Type: Cigarettes; Exposure to Tobacco Smoke None; Cigarette Smoking Last 365 Days No; Reg Smoking Cessation Counseling No Assessment and Plan No data available for this section
[2018-08-28 10:50] VITALS: BMI 22.1
--- OUTSIDE RECORDS SUMMARY | 2018-08-28 10:50 | XMS REPORT | Summary of Care ---
:1945 Author Organization [facility] Address [address] [place], [place] [phone] Encounter HQ Yared(FIN) [id number] Date(s): 08/26/17 - 08/26/[address] [phone] Encounter Diagnosis Other muscle spasm (Final) - 08/28/17 Anoxic brain damage, not elsewhere classified (Final) - Spastic hemiplegia affecting left nondominant side (Final) - Discharge Disposition: Home or Self Care Attending Physician: Stacy Coleman MD Referring Physician: Stacy Coleman MD Vital Signs Most recent to oldest [Reference Range]: 1 Height 167.64 cm (08/26/17 10:22 AM) Weight 66.364 kg (08/26/17 10:22 AM) Body Mass Index 23.61 m2 (08/26/17 10:22 AM) Problem List Condition Effective Dates Status [...] 600 unit, Route: IM, ONCALL, Dosing Weight 66.818, kg, Start date: 08/26/17 11: 00:00 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, 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: 30 day, Stop date: 09/25/17 10:59:00 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 Start Date: 08/26/17 Stop Date: 08/26/17 Status: Completed Results No data available for this section Immunizations No data available for this section Procedures Procedure Date Related Diagnosis Body Site Status Chemodenervation of one extremity; 5 or 08/26/17 Completed more muscles Chemodenervation of one extremity; 5 or 08/26/17 Completed more muscles Chemodenervation of one extremity; each 08/26/17 Completed additional extremity, 1-4 muscle(s) (List separately in addition to code for primary procedure) Chemodenervation of one extremity; each 08/26/17 Completed additional extremity, 1-4 muscle(s) (List separately in addition to code for primary procedure) Video urodynamic study 03/19/13 Completed Spinal cord stimulation1 01/21/09 Completed Arthroscopy of knee2 Completed Chemodenervation Completed Tubal ligation3 Completed 6icqcvcm5(L) [id number] & 1981 Social History Social History Type Response Substance Abuse Use: None. Sexual Sexually active: No. Exercise Exercise duration: 0. Employment/School Status: Retired. Highest education level: High school. Alcohol Never Smoking Status Never smoker; Type: Cigarettes; Ready to change: No; Concerns about tobacco use in household: No; Exposure to Tobacco Smoke None; Cigarette Smoking Last 365 Days No; Reg Smoking Cessation Counseling No entered on: 08/26/17 Assessment and Plan No data available for this section
--- OUTSIDE RECORDS SUMMARY | 2018-08-28 10:50 | XMS REPORT | Summary of Care ---
:[address] [facility] Address [address] [place], [place] [phone] Encounter HQ Tawanda_rosario(FIN) [id number] Date(s): 08/25/18 - 08/25/[address] [phone] Discharge Disposition: Home or Self Care Attending Physician: Stacy Coleman MD Referring Physician: Stacy Coleman MD Vital Signs Most recent to oldest [Reference Range]: 1 Height 167.64 cm (08/25/18 10:16 AM) Blood Pressure [90-140/60-90 mmHg] 102/73 mmHg (08/25/18 10:16 AM) Respiratory Rate [14-20 BRMIN] 18 BRMIN (08/25/18 10:16 AM) Peripheral Pulse Rate [60-100 bpm] 116 bpm *HI* (08/25/18 10:16 AM) Weight 63.636 kg (08/25/18 10:16 AM) Body Mass Index 22.64 m2 (08/25/18 10:16 AM) Problem List Condition Effective Dates Status [...] Dosing Weight 64.091, kg, Start date: 08/25/18 12: 00:00 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, 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: 30 day, Stop date: 09/24/18 11:59:00 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 Start Date: 08/25/18 Stop Date: 08/25/18 Status: Completed Results No data available for this section Immunizations No data available for this section Procedures Procedure Date Related Diagnosis Body Site Status Chemodenervation of one extremity; 5 or 08/25/18 Completed more muscles Chemodenervation of one extremity; each 08/25/18 Completed additional extremity, 1-4 muscle(s) (List separately in addition to code for primary procedure) Video urodynamic study 03/19/13 Completed Spinal cord stimulation1 01/21/09 Completed Arthroscopy of knee2 Completed Chemodenervation Completed Tubal ligation3 Completed [id number](L) [id number] & 1981 Social History Social History Type [...] Reg Smoking Cessation Counseling No entered on: 08/25/18 Assessment and Plan No data available for this section
--- OUTSIDE RECORDS SUMMARY | 2018-08-28 10:50 | XMS REPORT | Summary of Care ---
:1945 Author Organization [facility] Address [address] [place] [phone] Encounter HQ Tawanda_rosario(FIN) [id number] Date(s): 10/31/17 - 10/31/[address] [phone] Encounter Diagnosis Cramp and spasm (Final) - 11/03/17 Unspecified intracranial injury without loss of consciousness, sequela (Final) - Discharge Disposition: Home or Self [...] Substance Reaction Severity Status NKDA Active Medications baclofen 2 mg/mL intrathecal solution 408.4 mcg/day, INTRATHECAL, Continuous, 0 Refill(s) Start Date: 12/09/17 Status: Ordered Results No data available for this section Immunizations No data available for this section Procedures Procedure Date Related Diagnosis Body Site Status Video urodynamic study 03/19/13 Completed Spinal cord stimulation1 01/21/09 Completed Arthroscopy of knee2 Completed Chemodenervation Completed Tubal ligation3 Completed [id number](L) [id number] & 1981 Social History Social History Type [...] Reg Smoking Cessation Counseling No entered on: 11/25/17 Assessment and Plan No data available for this section
--- OUTSIDE RECORDS SUMMARY | 2018-08-28 10:50 | XMS REPORT | Summary of Care ---
:1945 Author Organization [facility] Address [address] [place], [place] [address] Encounter HQ Tawanda_rosario(FIN) [id number] Date(s): 05/11/17 - 05/11/[address] [place] [phone] Discharge Disposition: Home or Self Care Attending [...] 01/21/09 Arthroscopy of knee2 Chemodenervation Tubal ligation3 [id number](L) [id number] & 1981 Social History Social History Type [...]
--- OUTSIDE RECORDS SUMMARY | 2018-08-28 10:50 | XMS REPORT | Summary of Care ---
:1945 Author Organization [facility] [place] Address [facility] [place], [place] [address]- Encounter HQ Brintr_rosario(FIN) [id number] Date(s): 01/12/17 - 01/12/17 [facility] Outpatient Imaging [address], [address] [place] [phone] Discharge Disposition: Home or Self Care Attending Physician: Felix Hanson MD Vital Signs No data available for [...] 01/21/09 Arthroscopy of knee2 Chemodenervation Tubal ligation3 [id number](L) [id number] & 1981 Social History Social History Type [...]
--- OUTSIDE RECORDS SUMMARY | 2018-08-28 10:50 | XMS REPORT | Summary of Care ---
:1945 Author Organization [facility] Address [address] [place] [phone] Encounter HQ Tawanda_rosario(FIN) [id number] Date(s): 10/31/17 - 10/31/[address] Encounter Diagnosis Cramp and spasm (Final) - [...] knee2 Completed Chemodenervation Completed Tubal ligation3 Completed [id number](L) [id number] & 1981 Social History Social History Type [...]
--- OUTSIDE RECORDS SUMMARY | 2018-08-28 10:50 | XMS REPORT | Summary of Care ---
:1945 Author Organization [facility] Address [address] [place] [phone] Encounter HQ Tawanda_rosario(FIN) [id number] Date(s): 02/11/17 - 02/11/[address] [phone] Discharge Disposition: Home or Self Care Attending Physician: Stacy Coleman MD Referring Physician: Stacy Coleman MD Vital Signs Most recent to oldest [Reference Range]: 1 Height 167.64 cm (02/11/17 9:52 AM) Blood Pressure [90-140/60-90 mmHg] 110/76 mmHg (02/11/17 9:52 AM) Respiratory Rate [14-20 BRMIN] 20 BRMIN (02/11/17 9:52 AM) Peripheral Pulse Rate [60-100 bpm] 20 bpm *LOW* (02/11/17 9:52 AM) Weight 67.727 kg (02/11/17 9:52 AM) Body Mass Index 24.1 m2 (02/11/17 9:52 AM) Problem List Condition Effective Dates Status [...] tablet, extended release 7.5 mg=1 tab, PO, BID, # 30 tab, 0 Refill(s) Start Date: 02/11/17 Status: OrderedONAbotulinumtoxinA 600 unit, Route: IM, ONCALL, Dosing Weight 70.455, kg, Start date: 02/11/17 11: 00:00 CDT, Duration: 30 day, Stop date: 03/13/17 10:59:00 CDT Start Date: 02/11/17 Stop Date: 02/11/17 Status: Completed Results No data available for this section Immunizations No data available for this section Procedures Procedure Date Related Diagnosis Body Site Chemodenervation of one extremity; 5 or more 02/11/17 muscles Chemodenervation of one extremity; 5 or more 02/11/17 muscles Chemodenervation of one extremity; each 02/11/17 additional extremity, 1-4 muscle(s) (List separately in addition to code for primary procedure) Chemodenervation of one extremity; each 02/11/17 additional extremity, 1-4 muscle(s) (List separately in addition to code for primary procedure) Video urodynamic study 03/19/13 Spinal cord stimulation1 01/21/09 Arthroscopy of knee2 Chemodenervation Tubal ligation3 [id number](L) [id number] & 1981 Social History Social History Type [...]
--- OUTSIDE RECORDS SUMMARY | 2018-08-28 10:50 | XMS REPORT | Summary of Care ---
:1945 Author Organization [facility] Address [address] [place] [phone] Encounter HQ Tawanda_rosario(FIN) [id number] Date(s): 05/23/17 - 05/23/[address] [place] [phone] Discharge Disposition: Home or Self Care Attending Physician: Stacy Coleman MD Referring Physician: Stacy Coleman MD Vital Signs Most recent to oldest [Reference Range]: 1 Height 167.64 cm (05/23/17 1:22 PM) Blood Pressure [90-140/60-90 mmHg] 13/78 mmHg *LOW* (05/23/17 1:22 PM) Respiratory Rate [14-20 BRMIN] 15 BRMIN (05/23/17 1:22 PM) Peripheral Pulse Rate [60-100 bpm] 91 bpm (05/23/17 1:22 PM) Weight 66.818 kg (05/23/17 1:22 PM) Body Mass Index 23.78 m2 (05/23/17 1:22 PM) Problem List Condition Effective Dates Status [...] Reaction Severity Status NKDA Active Medications darifenacin 15 mg oral tablet, extended release 15 mg=1 tab, PO, Daily, # 90 tab, 0 Refill(s) Start Date: 05/23/17 Status: Orderedescitalopram 10 mg oral tablet 10 mg=1 tab, PO, Daily, # 90 tab, 0 Refill(s) Start Date: 05/23/17 Status: Orderedescitalopram 10 mg oral tablet 10 mg=1 tab, PO, Daily, # 90 tab, 3 Refill(s), Pharmacy: [id number] Start Date: 02/22/17 Stop Date: 05/23/17 Status: CompletedONAbotulinumtoxinA 600 unit, Route: IM, ONCALL, Dosing Weight 67.727, kg, Start date: 05/23/17 15: 00:00 CDT, Duration: 30 day, Stop date: 06/22/17 13:59:00 HOSPITAL AIDE Start Date: 05/23/17 Stop Date: 05/23/17 Status: Completed Results No data available for this section Immunizations No data available for this section Procedures Procedure Date Related Diagnosis Body Site Chemodenervation of one extremity; 5 or more 05/23/17 muscles Chemodenervation of one extremity; 5 or more 05/23/17 muscles Video urodynamic study 03/19/13 Spinal cord stimulation1 01/21/09 Arthroscopy of knee2 Chemodenervation Tubal ligation3 5lbwqbhn3(L) [id number] & 1981 Social History Social History Type [...]
--- OUTSIDE RECORDS SUMMARY | 2018-08-28 10:50 | XMS REPORT | Summary of Care ---
:1945 Author Organization [facility] Address [address] [place], [place] [phone] Encounter HQ Yared(FIN) [id number] Date(s): 08/26/17 - 08/26/[address] [phone] Encounter Diagnosis Other muscle spasm (Final) - [...] 66.818, kg, Start date: 08/26/17 11: 00:00 FOLDER OPERATOR, Duration: 30 day, Stop date: 09/25/17 10:59:00 FOLDER OPERATOR Start Date: 08/26/17 Stop Date: 08/26/17 Status: [...] knee2 Completed Chemodenervation Completed Tubal ligation3 Completed [id number](L) [id number] & 1981 Social History Social History Type [...]
[2018-08-28] MEDS ORDERED: ONDANSETRON 4 MG/2 ML VIAL IV PRN (11:04)
[2018-08-28] MEDS ORDERED: SODIUM CHLORIDE 0.9% 10ML INJ IV PRN (11:08)
[2018-08-28] MEDS ORDERED: PANTOPRAZOLE 40 MG INJ IVP ONE (11:08)
[2018-08-28] MEDS ORDERED: D5 0.9 NS 1,000 ML IV SCH ×2 (12:00→22:00)
[2018-08-28 12:09] LABS: Absolute Lymphocytes (CBC) 3.4 K/uL (0.7-4.9); Absolute Monocytes 1.7 K/uL (0.1-1.3); Absolute Neutrophil 10.9 K/uL (1.8-8.0); Basophils % 0.5 % (0-1.3); Hematocrit 36.2 % (36.0-45.0); Lymphocytes % 21.1 % (15.3-44.8); MPV 9.5 fL (7.6-11.3); Monocytes % 10.8 % (3.3-12.3); RBC Red Blood Cell Count 4.14 M/uL (3.86-4.86)
--- NOTE | 2018-08-28 12:22 | RAD REPORT ---
EXAM DESCRIPTION: RAD - Chest Single View - 08/28/2018 12:15 pm CLINICAL HISTORY: pneumonia Chest pain. COMPARISON: CHEST SINGLE VIEW dated 11/16/2011; CHEST PA AND LAT 2 VIEW dated 09/15/2007; CHEST PA AND LAT 2 VIEW dated 05/15/2001 FINDINGS: Portable technique limits examination quality. Moderate bilateral pulmonary opacities are present which may represent pneumonia or pulmonary edema. The heart is mildly enlarged in size. No displaced fractures.
[2018-08-28] MEDS: CEFTRIAXONE/SWI 1gm 1 GM/10 ML SYR IV SCH ×2 (12:29→20:18)
[2018-08-28 12:54] LABS: Albumin 3.7 g/dL (3.4-5.0); Alkaline Phosphatase 91 U/L (45-117); Amylase Level 34 U/L (25-115); BUN Blood Urea Nitrogen 19 mg/dL (7-18); Bicarbonate 24 mmol/L (21-32); Bilirubin Total 2.1 mg/dL (0.2-1.0); Glucose Level 145 mg/dL (74-106); Lipase 157 U/L (73-393); Magnesium 1.9 mg/dL (1.8-2.4); Potassium 4.6 mmol/L (3.5-5.1); Protein, Total 6.9 g/dL (6.4-8.2); Sodium Level 125 mmol/L (136-145); Thyroid Stimulating Hormone 0.672 uIU/mL (0.360-3.740)
[2018-08-28 13:03] LABS: ALT/SGPT 350 U/L (12-78); AST/SGOT 319 U/L (15-37)
[2018-08-28] MEDS ORDERED: METOPROLOL TARTRATE 5 MG/5 ML INJ IV STA (13:04)
[2018-08-28] MEDS ORDERED: ENOXAPARIN 60 MG/0.6 ML SQ SCH (13:15)
[2018-08-28] MEDS ORDERED: ALBUTEROL 2.5 MG/3 ML NEB SOL NEB SCH (14:00)
[2018-08-28] MEDS ORDERED: NA CHLORIDE 0.9% 250 ML IV SCH ×2 (14:42→17:20)
[2018-08-28] MEDS ORDERED: NA CHLORIDE 0.9% 250 ML ONE ×2 (14:51→17:33)
[2018-08-28] MEDS ORDERED: DIGOXIN 0.25 MG/ML AMP IV SCH (16:00)
[2018-08-28] MEDS ORDERED: DIGOXIN 0.25 MG/ML AMP ONE (17:33)
[2018-08-28] MEDS ORDERED: ALBUTEROL 2.5 MG/3 ML NEB SOL NEB PRN (19:57)
[2018-08-28] MEDS ORDERED: NA CHLORIDE 0.9% 250 ML IV PRN (19:57)
--- NOTE | 2018-08-28 20:49 | EKG ---
Test Date: 2018-08-28 Test Time: 13:19:21 All Source Intelligence Technician: LESVIA MEASUREMENT RESULTS: Intervals: Rate: 163 OK: QRSD: 122 QT: 320 QTc: 526 [place]: P: OK: QRS: 225 T: 63 INTERPRETIVE STATEMENTS: Atrial fibrillation with rapid ventricular response with premature ventricular or aberrantly conducted complexes Possible Lateral infarct, age undetermined Abnormal ECG Compared to ECG 04/04/2001 09:00:00 Ventricular premature complex(es) now present Myocardial infarct finding now present Sinus tachycardia no longer present Sinus arrhythmia no longer present ST (T wave) deviation no longer present Electronically Signed On 08-28-18 20:47:51 FICTION AND NONFICTION PROSE WRITER by Crispin Dietrich
--- NOTE | 2018-08-28 20:49 | EKG ---
Test Date: 2018-08-28 Test Time: 14:41:52 Fabric Coating Supervisor: LESVIA MEASUREMENT RESULTS: Intervals: Rate: 100 DC: 148 QRSD: 126 QT: 384 QTc: 495 [place]: P: 65 DC: 148 QRS: -89 T: 46 INTERPRETIVE STATEMENTS: Normal sinus rhythm Possible Left atrial enlargement Left axis deviation Nonspecific intraventricular block Possible Anterolateral infarct, age undetermined Abnormal ECG Compared to ECG 08/28/2018 13:19:21 Left-axis deviation now present Atrial fibrillation no longer present Ventricular premature complex(es) no longer present Myocardial infarct finding still present Electronically Signed On 08-28-18 20:47:46 LEAD BLENDER by Crispin Dietrich
[2018-08-28] MEDS: DIGOXIN 0.25 MG/ML AMP IV SCH (23:28)
[2018-08-29] MEDS ORDERED: DIGOXIN 0.25 MG/ML AMP IV SCH
[2018-08-29 00:13] VITALS: O2SAT 95
[2018-08-29] MEDS: ENOXAPARIN 60 MG/0.6 ML SQ SCH ×2 (01:15→12:35)
--- NOTE | 2018-08-29 03:28 | CON ---
Date of Consultation: 08/28/2018 Reason For Consultation: Atrial fibrillation. History Of Present Illness: Mrs. Chen is a 72-year-old female who has been a patient of Dr. Parris hogan many years. She basically never really had any significant cardiac history as far as we know. 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 She apparently had 1 episode of atrial fibrillation approximately 3 [address] Alonso in [place]. Details are unknown. She has a history of paraplegia. She was admitted with what looks like a pneumonia bi laterally on chest x-ray. Soon after admission, she went into rapid atrial fibrillation; was given 2 .5 of Lopressor IV before she became hypotensive. This was stopped. She was hydrated. She went guilherme k to normal sinus rhythm, was sent to the ICU for further evaluation and treatment. When she got int o the ICU, she went back into atrial fibrillation with rapid ventricular response. Dr. Nye had give n her 0.5 mg of digoxin IV push and they elected to continue this for a total of 4 dosages for now. Echocardiogram was done and not read. It is very difficult to obtain history from Mrs. Chen as she is aphasic but there were no reports of chest pain. She obviously did have some shortness of breath. Past Medical History: Dyslipidemia, hypothyroidism and bladder incontinence. Medications: At home her medications include Lipitor, Lexapro, Synthroid, and Myrbetriq. Allergies: NONE. Review of Systems: Negative. Social History: Negative. Family History: Not contributory. Physical Examination: Vital Signs: When I saw her, she was in atrial fibrillation at a rate of about 112. Blood pressure was 93/71. She was afebrile. Respiratory rate was 15. HEENT: Negative. She is aphasic. Neck: Supple with no bruit. Chest: Revealed bilateral rales. Cardiac: Revealed atrial fibrillation. No murmurs, gallops, or ru bs. Abdomen: Obese but benign. Extremities: Revealed no clubbing, cyanosis, or edema. She is paraplegi c. Diagnostic Data: Diagnostic data of value was a chest x-ray showing pneumonia. White count was 16,0 00. Her sodium was 125. Her glucose was 145. Her liver function tests; AST was 319, ALT was 390. Her TSH was 0.672. Her procalcitonin was less than 0.05. EKG showed atrial fibrillation. Chest x- ray showed pneumonia as stated above. Impression And Plan: 1.Atrial fibrillation, untolerated by beta-brenda IV. I think we can put her on digoxin IV and if she is able to take p.o., we can put her on Lopressor p.o., see what the echocardiogram shows prior t o making any final decisions. Her thyroid level is adequate. If she stays in atrial fibrillation, w e will consider IV amiodarone or cardioversion. She needs to be on Lovenox. 2.Anoxic encephalopathy with paraplegia and aphasia. 3.Dyslipidemia. 4.Hypothyroidism. 5.Bladder incontinence. 6.Depression. We will see what the echocardiogram shows. Continue treatment as stated earlier. The case was discu ssed with Dr. Nye. I will continue to follow the patient with him. NANCY/EZEQUIEL Voice ID: [id number] Report ID: [id number]
[2018-08-29 04:58] LABS: Absolute Monocytes 1.2 K/uL (0.1-1.3); Absolute Neutrophil 6.4 K/uL (1.8-8.0); Basophils % 0.7 % (0-1.3); Hematocrit 32.9 % (36.0-45.0); Lymphocytes % 34.1 % (15.3-44.8); MPV 9.3 fL (7.6-11.3); Monocytes % 10.1 % (3.3-12.3); RBC Red Blood Cell Count 3.64 M/uL (3.86-4.86)
[2018-08-29 05:31] LABS: Albumin 2.9 g/dL (3.4-5.0); Alkaline Phosphatase 70 U/L (45-117); BUN Blood Urea Nitrogen 12 mg/dL (7-18); Bicarbonate 32 mmol/L (21-32); Bilirubin Total 0.9 mg/dL (0.2-1.0); Glucose Level 99 mg/dL (74-106); Magnesium 1.9 mg/dL (1.8-2.4); Potassium 4.2 mmol/L (3.5-5.1); Protein, Total 5.6 g/dL (6.4-8.2); Sodium Level 137 mmol/L (136-145)
[2018-08-29 05:33] LABS: ALT/SGPT 461 U/L (12-78); AST/SGOT 355 U/L (15-37)
--- NOTE | 2018-08-29 05:46 | HP ---
Date of Admission: 08/28/2018 Chief Complaint: Not feeling good. 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 She lives at home. Her provides care to her, and was recently ill with respiratory infection, and in last 3 days the patient started to have cough, chest congestion, not able to cough up anything as she does not have strong cough reflex. During this time, while she was sick, she was out of town , and she could not keep anything down. Every time she tried to eat or drink something, she ended up vomiting. No diarrhea. No bleeding. This morning, patient's came into office to talk to me about this concern and he was asked to bring the patient actually to office right away for evaluation, and she was brought in by to office. Soon after that, I evaluated her, and I was concerned about possibility of pneumonia, and her nausea and vomiting problem, so a decision was made to admit her to hospital directly. Once arrangements completed, she was admitted to hospital. Hospital Stay: After the patient was admitted to the hospital, further routine blood work and x-ray obtained. X-ray revealed presence of pneumonia. Blood work showed elevated white count and low sodium and abnormal liver function tests. She was started on antibiotics, ceftriaxone. IV fluid was given. IV Protonix was started. After her admission to the hospital, she went into atrial fibrillation with rapid ventricular rate. Her initial blood pressure was around 130 systolic, but then her heart rate went up to 150-170, irregular, due to atrial fibrillation. At that time, 5 mg Lopressor slow IV push was ordered, and nurse contacted me and informed me that after she gave half of the dose, about 2.5 mg, the patient's blood pressure dropped too low, around 80-90 systolic, and she stopped giving rest of the medication. IV fluid bolus was ordered, and subsequently her blood pressure even dropped down to as low as 75 systolic or so. For a short time, she came back to sinus rhythm, but subsequently she went back into atrial fibrillation. Decision was made to transfer her to ICU. After she arrived into ICU, she went into atrial fibrillation with rapid ventricular rate again. Digoxin 0.25 mg IV x1 dose was ordered. Cardiology consultation was requested from Dr. Dietrich, and details were discussed with him. Her systolic blood pressure when she arrived to ICU was 90 systolic. Second dose of IV fluid bolus was given, and I just saw her in the ICU this evening, and systolic blood pressure was still around 90, so a third dose of IV fluid bolus was ordered. After the IV fluid bolus was given, I have learned it from manager underwriting, Dr. Dietrich, who called me and informed me that patient's echocardiogram done today has revealed ejection fraction around 20%. The patient was very comfortable when I saw her in ICU, not in any respiratory distress. Review of Systems: Respiratory: As mentioned above. GI: As mentioned above. EXCELSIOR CUTTER: As mentioned above. All other systems reviewed and negative. Allergies: NO KNOWN ALLERGIES. Medications: Myrbetriq 50 mg p.o. daily, Lexapro 10 mg daily, levothyroxine 50 mcg p.o. daily, atorvastatin 20 mg daily at bedtime. Past Medical History: Significant for hypothyroidism, type 2 diabetes mellitus , mixed hyperlipidemia, gastroesophageal reflux disease, allergic rhinitis, anoxic encephalopathy. Past Surgical History: Removal of ovarian cyst, arthroscopic knee surgery, tubal ligation, and baclofen pump placement. Social History: Negative for smoking or alcohol use. Family History: Significant for coronary artery disease, depression, stroke, emphysema, hypertension. Physical Examination: Vital Signs: When I saw her at office, vital signs included weight. We were not able to get her weight checked as she was not able to stand. Height 66 inches, blood pressure 126/72, pulse 101, respiratory rate 15, temperature 97. General: The patient is not in any distress, does not communicate, but tried to move her head trying to say yes or no. This is her baseline. HEENT: Head atraumatic, normocephalic. Conjunctivae nonerythematous. Sclerae white. Mouth, no thrush or edema noted. Ears/Nose, no mass, lesion, discharge noted. Neck: Supple. No JVD, lymph nodes, bruit, thyromegaly noted. Lungs: Presence of rales noted in both lower lung koch, more in the left lower lung field than the right side. Not in respiratory distress. Heart: Normal heart sounds, no murmur or gallop. Abdomen: Soft, bowel sounds normal. No guarding, rigidity, tenderness, mass, hepatosplenomegaly, distention, or bruit noted. Extremities: Trace to grade 1 edema of both lower extremity involving feet and lower legs. Skin: No rash, ulcer, cellulitis. Lymphatics: No lymph node enlargement in neck, supraclavicular, infraclavicular region. Neuro: The patient has spasticity of all the 4 extremities and quadriplegia due to anoxic encephalopathy in the past. This is her baseline condition. Chest: Unremarkable. External Genitalia: Deferred. Rectal: Deferred. Laboratory Data: Sodium 125, potassium 4.6, chloride 94, bicarb 24, BUN 19, creatinine 0.60, glucose 145. Lactic acid level 2.8, hemoglobin A1c 6.3, TSH 0.672, total bilirubin 2.1, SGOT 319, SGPT 350, alkaline phosphatase 91. Procalcitonin less than 0.05. White count 16.1, hemoglobin 12.3, platelets 274. Chest x-ray; bilateral pulmonary opacity which may represent pneumonia or pulmonary edema. Impression: 1. Pneumonia. 2. Atrial fibrillation. 3. Yud-qsevrds-nshnmauvd diabetes mellitus. 4. Hypothyroidism. 5. Anoxic encephalopathy. 6. Mixed hyperlipidemia. 7. Gastroesophageal reflux disease. 8. Abnormal liver function tests. Plan: We will go ahead and admit the patient to hospital for further evaluation and management of this problem. The patient was initially admitted to hospital to medical floor and subsequently transferred to ICU. She is appropriate for inpatient and is expected to spend 2 midnights in the hospital. We will continue levothyroxine per order. Other home medications will be kept on hold. We will not give any more IV fluid as we are concerned about possibility of congestive heart failure and fluid overload type of problem. We will repeat blood work tomorrow morning. We will get abdominal ultrasound tomorrow. Echocardiogram results reviewed with manager underwriting. Lovenox was started this morning after I learned about her atrial fibrillation. We will continue digoxin per order. Dr. Dietrich has evaluated her and he will consider IV amiodarone drip versus electrical cardioversion depending on patient's condition, and he will make that decision hopefully tomorrow. Once again, it depends on patient's condition. I did talk to patient's this evening in ICU. Details were discussed with him. We will repeat the liver function tests along with electrolytes and blood count tomorrow, and I will see her in the morning for followup. We will repeat chest x-ray. We will give her IV Protonix and keep her on liquid diet right now. STANLEY/EZEQUIEL Voice ID: [id number] LIZETTE
[2018-08-29] MEDS: DIGOXIN 0.25 MG/ML AMP IV SCH ×3 (05:50→18:27)
[2018-08-29] MEDS ORDERED: LEVOTHYROXINE SOD 0.05 MG TABLET PO SCH (06:00)
--- NOTE | 2018-08-29 07:55 | ECHO ---
HEIGHT: 5 ft 6 in WEIGHT: 137 lb 0 oz DATE OF STUDY: 08/28/[address]: Tj Nye MD 2-DIMENSIONAL: YES M.MODE: YES DOPPLER: YES COLOR FLOW: YES TDS: YES PORTABLE: DEFINITY: BUBBLE STUDY: DIAGNOSIS: ATRIAL FIBRILLATION CARDIAC HISTORY: CATHERIZATION: NO SURGERY: NO PROSTHETIC VALVE: NO PACEMAKER: NO MEASUREMENTS (cm) DIASTOLIC (NORMALS) SYSTOLIC (NORMALS) IVSd 0.9 (0.6-1.2) LA Diam 3.6 (1.9-4.0) LVEF 20-25% LVIDd 4.0 (3.5-5.7) LVIDs 3.7 (2.0-3.5) %FS % LVPWd 0.8 (0.6-1.2) Ao Diam 2.8 (2.0-3.7) 2 DIMENSIONAL ASSESSMENT: RIGHT ATRIUM: NORMAL LEFT ATRIUM: NORMAL RIGHT VENTRICLE: NORMAL LEFT VENTRICLE: NORMAL SIZE TRICUSPID VALVE: NORMAL MITRAL VALVE: NORMAL PULMONIC VALVE: NORMAL AORTIC VALVE: NORMAL PERICARDIAL EFFUSION: NONE AORTIC ROOT: NORMAL LEFT VENTRICULAR WALL MOTION: SEVERE GLOBAL HYPOKINESIS DOPPLER/COLOR FLOW: MILD MITRAL, TRICUSPID AND AORTIC REGURGITATION COMMENTS: MILD MITRAL, TRICUSPID AND AORTIC REGURGITATION. ATRIAL FIBRILLATION. NORMAL LEFT ATRIAL SIZE. NO THROMBUS. SEVERE GLOBAL HYPOKINESIS. TECHNOLOGIST: MG LARA
--- NOTE | 2018-08-29 08:24 | RAD REPORT ---
EXAM DESCRIPTION: RAD - Chest Single View - 08/29/2018 5:43 am CLINICAL HISTORY: pneumonia Chest pain. COMPARISON: Chest Single View dated 08/28/2018; CHEST SINGLE VIEW dated 11/16/2011; CHEST PA AND LAT 2 VIEW dated 09/15/2007; CHEST PA AND LAT 2 VIEW dated 05/15/2001 FINDINGS: Portable technique limits examination quality. Bilateral pulmonary opacities have mildly worsened since the comparative radiograph on the preceding day's. This likely indicates worsening pneumonia or pulmonary edema. The heart is mildly enlarged in size. No displaced fractures. IMPRESSION: Worsening in bilateral pulmonary opacities noted since preceding day's study.
--- NOTE | 2018-08-29 08:41 | RAD REPORT ---
EXAM DESCRIPTION: US - Abdomen Exam Complete - 08/29/2018 8:23 am CLINICAL HISTORY: Abdominal pain. abd pain, abn LFTs COMPARISON: No comparisons FINDINGS: Mildly heterogenous liver parenchymal pattern. No focal liver lesions or intrahepatic bili bud dilatation is seen. Gallbladder contraction noted without definitive stone. Wall thickening is present which may be relat ed to gallbladder contraction. Common bile duct is normal in caliber measuring 4 mm. Both kidneys are normal in size, shape and echotexture. No hydronephrosis, focal lesion of concern or perinephric fluid. The spleen is normal in size measuring 9 cm. The pancreas and aorta are obscured by bowel gas. The visualized aspects of the IVC are grossly normal. IMPRESSION: Mildly heterogenous liver parenchyma. Contracted gallbladder with thickened wall may be related to degree of gallbladder contraction or clarence lculous cholecystitis.
[2018-08-29] MEDS ORDERED: PANTOPRAZOLE 40 MG INJ IVP SCH (09:00)
[2018-08-29] MEDS ORDERED: ENOXAPARIN 60 MG/0.6 ML SQ SCH (09:00)
--- NOTE | 2018-08-29 09:00 | RAD REPORT ---
EXAM DESCRIPTION: RAD - Chest Single View - 08/29/2018 8:54 am CLINICAL HISTORY: Picc line placement COMPARISON: Chest Single View dated 08/29/2018; Chest Single View dated 08/28/2018; CHEST SINGLE VIEW dated 11/16/2011; CHEST PA AND LAT 2 VIEW dated 09/15/2007 FINDINGS: Portable chest was obtained following placement of a left upper extremity PICC line. The c atheter tip projects over the atrial caval junction region..
[2018-08-29] MEDS ORDERED: FUROSEMIDE 20 MG/ 2ML VIAL IV ONE (09:34)
[2018-08-29] MEDS: CEFTRIAXONE/SWI 1gm 1 GM/10 ML SYR IV SCH (10:03)
--- NOTE | 2018-08-29 13:19 | PN ---
Date of Progress Note: 08/29/2018 Ms. Chen was admitted yesterday with pneumonia, went into atrial fibrillation, rapid ventricular res ponse, did not tolerate beta-brenda because of hypotension. Echocardiogram showed an ejection fract ion of 20% to 25%. She received digoxin IV for her atrial fibrillation. Her rate is controlled at a bout 90. Remains slightly hypotensive. Chest x-ray seems to be slightly worse. I think, we are karl ling with a combination of pneumonia and CHF, atrial fibrillation and hypotension. The patient had i ssue with an anoxic encephalopathy and paralysis. The case was discussed with Dr. Nye. He was neelam dudley to discuss with the family the possibility of transferring the patient to [facility] for fu rther care or consider IV amiodarone bolus and drip for her atrial fibrillation and possibly cardiove rsion later. I will continue to follow up with him. NANCY/EZEQUIEL Voice ID: [id number] Report ID: [id number]
[2018-08-29 20:25] VITALS: BP 92/55
[2018-08-29 20:27] VITALS: TEMP 99
--- NOTE | 2018-08-30 04:41 | DS ---
Date of Discharge: 08/29/2018 Disposition: Transfer to [facility] via ground ambulance. Physical Examination: Vital Signs: When I saw her this morning, she was lying in ICU bed, not in distress. HEENT: Unremarkable. Lungs: Bilateral rales noted, diffusely scattered all over her lung, more so on right side than the left side. Not using any accessory muscles of respiration. Heart: Sounds normal. Abdomen: Soft. Bowel sounds normal. No guarding, rigidity, tenderness, or distention. Extremities: No leg edema. Discharge Medications And Instructions: Continue all her current medications and see copy of transfe r SEP. Laboratory Data: Labs done during this hospitalization yesterday; white count 16.1, hemoglobin 12.3, and platelets 274. This morning; white count 11.8, hemoglobin 10.9, and platelets 223. Yesterday; sodium 125, potassium 4.6, chloride 94, bicarb 24, BUN 19, creatinine 0.60, and glucose 145; total bi lirubin 2.1, SGOT 319, SGPT 350, procalcitonin less than 0.05, and lipase 157; TSH 0.672. This morni ng; sodium 137, potassium 4.2, chloride 101, bicarb 32, BUN 12, creatinine 0.64, and glucose 99; tota l bilirubin 0.9, SGOT 355, and SGPT 461. Yesterday, chest x-ray showed bilateral pulmonary opacity r aising possibility of pneumonia versus CHF and this morning's chest x-ray shows worsening of bilatera l pulmonary opacities. Echocardiogram shows ejection fraction 20-25%. Hospital Course: This is a 72-year-old very pleasant female patient who had an atrial fibrillation p fernielem, which was paroxysmal atrial fibrillation, probably 5-7 years ago around the time when she had a baclofen pump placed at [facility] and at that time, she saw weigher and crusher, Dr. Kidd and she has been seeing him on a regular basis. Last time she saw Dr. Kidd was in March of 2018 and a t that time, she was in normal sinus rhythm. The patient's got sick with some respiratory in fection recently and the patient started to have cough, congestion over the weekend and nausea, vomit ing while she was unable to keep anything down. Yesterday, the patient's brought her to my o ffice with this. She was evaluated and admitted to the hospital. I was concerned about pneumonia an d dehydration. After she was admitted to the hospital, chest x-ray showed evidence of pneumonia with increased WBC count. She was placed on cheese packer and as I understand from the beginning of this admission, she was noted to have atrial fibrillation with rapid ventricular rate. Her heart rat e was ranging anywhere from 130-170. Her blood pressure was around 130-135 systolic at that time and we gave her 5 mg Lopressor slow IV push and by the time nurse gave her 2.5 mg Lopressor, she dropped her blood pressure, so rest of the dose was not given and she only got 2.5 mg Lopressor IV. After t hat, she converted to sinus rhythm. IV fluid bolus 250 cc was given and subsequently she was transfe rred out from medical floor to ICU. When she arrived to ICU, her systolic blood pressure was around 90 and remained almost around that most of the time. She went back in atrial fibrillation with heart rate around 110 or so. Cardiology consultation was obtained from Dr. Dietrich. IV digoxin was given to her and she has received digoxin every 6 hours altogether 4 doses as ordered by Dr. Dietrich and h er heart rate has remained controlled anywhere from 80-110, atrial fibrillation. She was able to [place] ntain her oxygen saturation very well. She has not required any vasopressor medication. Overnight, her condition remained stable. Abdominal ultrasound showed a contracted gallbladder, no evidence of any gallbladder wall thickening, and I believe that her elevated liver function test is likely due to passive venous congestion from low ejection fraction. Yesterday, she did not tolerate diet very wel l. Today, she was able to tolerate diet very well and did not have any nausea, vomiting. IV Protoni x was ordered and yesterday, she was started on IV Rocephin. White count has improved today. After I examined her this morning and after looking at chest x-ray once her systolic blood pressure was lopez und 110 or so, we gave her Lasix 20 mg IV x1 dose, a Bolden catheter was placed, and she has diuresed altogether about 1500 cc of urine today. Her lungs sounded much better this evening as reported by [facility] staff. I talked to the patient's this morning, details were discussed with him, and p er his request, I did contact her weigher and crusher, Dr. Kidd in [place] and transfer was requested and he has accepted the patient and later on, I did talk to the hospitalist as well as the public service administrator at [facility] and they have accepted the patient, all the details were provided to them. The p kasey will be transferred in stable condition this evening via ground ambulance. The patient was st arted on Lovenox 1 mg/kg subcutaneous injection every 12 hours as of yesterday after admission soon a s we found out that she was in atrial fibrillation. Final Diagnoses: 1.Paroxysmal atrial fibrillation. 2.Congestive heart failure, acute, systolic. 3.Pneumonia. 4.Volume depletion. 5.Hyperlipidemia. 6.Impaired fasting glucose. 7.Hypothyroidism. 8.Anoxic encephalopathy. 9.Anemia, unspecified. 10.Hyponatremia. 11.Abnormal liver function tests. STANLEY/MODL Voice ID: [id number] Report ID: [id number]
== END 2018-08-29 20:38 | disposition short-term general hospital (02) | DRG 193 ==
LOC: 2ND 10:34 → 3RD-ICU 16:30
PROVIDERS: ADMIT Internal Medicine; ATTEND Internal Medicine
PROC: 02HV33Z Insertion of Infusion Device into Superior Vena Cava, Percutaneous Approach (ICD-10-PCS; principal; 2018-08-29)
DX: J18.9 Pneumonia, unspecified organism (principal); I50.21 Acute systolic (congestive) heart failure; G93.1 Anoxic brain damage, not elsewhere classified; G82.20 Paraplegia, unspecified; R47.01 Aphasia; E87.1 Hypo-osmolality and hyponatremia; E03.9 Hypothyroidism, unspecified; E78.2 Mixed hyperlipidemia; E11.9 Type 2 diabetes mellitus without complications; K21.9 Gastro-esophageal reflux disease without esophagitis; J30.9 Allergic rhinitis, unspecified; R94.5 Abnormal results of liver function studies; I95.9 Hypotension, unspecified; R32 Unspecified urinary incontinence; F32.9 Major depressive disorder, single episode, unspecified; I48.0 Paroxysmal atrial fibrillation; E86.9 Volume depletion, unspecified; R73.01 Impaired fasting glucose; D64.9 Anemia, unspecified; Z74.01 Bed confinement status; Z99.3 Dependence on wheelchair
CPT/HCPCS: 36415; 71045; 76700; 80053; 82150; 83036; 83605; 83690; 83735; 84145; 84443; 85025; 87040; 93005; 93306; 94640; C9113; J0696; J1160; J1650; J1940; J2405

== ENCOUNTER 2018-09-18 00:28 | Emergency (ER) | payer OTHER ==
--- OUTSIDE RECORDS SUMMARY | 2018-09-18 00:39 | XMS REPORT | Continuity of Care Document ---
:1945 Author Organization Interface Problems Problem Status Onset Classification Date Comments Source Date Reported 600 UNITS Active 05/26/20 [facility] 18 Other muscle 03/14/20 09/13/2018 [facility] spasm 18 500 UNITS Active 11/26/19 [facility] 18 Cramp and spasm 11/05/19 02/06/2018 [facility] 18 REFILL 2000/40ML Active 11/01/19 [facility] AD: 05/05/18 18 REFILL 2000/40ML Active 05/16/20 [facility] [...] [facility] 13 Anxiety Active 08/01/19 Problem 09/13/2018 [facility] 13 OPID [place] Irregular heart Active 08/01/19 Problem 09/13/2018 [facility] beat 13 OPID [place] Skin allergy Resolved 08/01/19 Problem 09/13/2018 [facility],MH 13 OPID [place] Urinary tract Active 08/01/19 Problem 09/13/2018 [facility] infection 13 OPID [place] Anxiety Active 08/01/19 Problem 03/04/2013 [facility] 13 Irregular heart Active 08/01/19 Problem 03/04/2013 [facility] beat 13 Skin allergy Resolved 08/01/19 Problem 03/04/2013 [facility] 13 Urinary tract Active 08/01/19 Problem 03/04/2013 [facility] infection 13 UNITS Active 09/06/19 [facility] 12 FU Active 08/27/19 [facility] 12 Neurogenic Active 01/22/20 Problem 09/13/2018 [facility] bladder 09 OPID [place] NEUROGENIC Active 12/31/19 [facility] BLADDER 09 W/INCONTINENCE ANOXIC BRAIN Active 08/01/19 [facility] INJURY 342.1 01 WHEELCHAIR FINAL Active 08/01/19 [facility] FITTING 01 Anoxic brain Active Problem 09/13/2018 [facility] injury OPID [place] Back pain Active Problem 09/13/2018 [facility] OPID [place] Cardiac arrest Resolved Problem 09/13/2018 [facility],MH OPID [place] Fibroids Resolved Problem 09/13/2018 [facility], OPID [place] Incontinence Active Problem 09/13/2018 [facility], OPID [place] Migraine Active Problem 09/13/2018 [facility],MH OPID [place] Major depressive Active Problem 09/13/2018 [facility] disorder, OPID recurrent, [place] moderate Pneumonia Resolved Problem 09/13/2018 [facility],MH OPID [place] Sleep apnea Resolved Problem 09/13/2018 [facility] OPID [place] Spasticity Active Problem 09/13/2018 [facility],MH OPID [place] Weakness Active Problem 09/13/2018 [facility],MH OPID [place] Unspecified 02/06/2018 [facility] intracranial injury without loss of consciousness, sequela Anoxic brain 09/13/2018 [facility] damage, not elsewhere classified 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 Anoxic brain Active Problem 03/04/2013 [facility] injury Back pain Active Problem 03/04/2013 [facility] Cardiac arrest Resolved Problem 03/04/2013 [facility] Fibroids Resolved Problem 03/04/2013 [facility] Incontinence Active Problem 03/04/2013 [facility] Migraine Active Problem 03/04/2013 [facility] Pneumonia Resolved Problem 03/04/2013 [facility] Weakness Active Problem 03/04/2013 [facility] Sleep apnea Resolved Problem 03/04/2013 [facility] Other 09/13/2018 [facility] abnormalities of gait and mobility SPASM OF MUSCLE Active [facility] ABN [...] Provider Date Botulinum Toxin 600 unit, Inactive [facility] Type A Route: IM, 2018 ONCALL, Dosing Weight 64.091, kg, Start date: 08/25/18 12:00:00 ESTIMATOR, Duration: 30 day, Stop date: 09/24/18 11:59:00 ESTIMATOR Botulinum Toxin 500 unit, Inactive 02/24/ [facility] Type A Route: IM, 2017 ONCALL, Dosing Weight 62.727, kg, Start date: 02/24/18 16:00:00 CDT, Duration: 30 day, Stop date: 03/26/18 15:59:00 CDT 24 HR mirabegron 50 mg=1 tab, Active 02/24/ [facility] 50 MG Extended PO, Daily, # 2018 Release Tablet 30 tab, 0 [Myrbetriq] Refill(s) Zyrtec 2.5 mg, PO, Active 02/24/ [facility] PRN, 0 2018 Refill(s) Baclofen 2 MG/ML 408.4 Active 12/09[facility] Injection mcg/day, 2018 INTRATHECAL, Continuous, 0 Refill(s) Botulinum Toxin 600 unit, Inactive [facility] Type A Route: IM, 2017 ONCJULIA, Dosing Weight 66.818, kg, Start date: 08/26/17 11:00:00 ESTIMATOR, Duration: 30 day, Stop date: 09/25/17 10:59:00 ESTIMATOR Botulinum Toxin 600 unit, Inactive [facility] Type A Route: IM, 2016 ONCJULIA, Dosing Weight 67.727, kg, Start date: 05/23/17 15:00:00 CDT, Duration: 30 day, Stop date: 06/22/17 13:59:00 ESTIMATOR escitalopram 10 10 mg=1 tab, Active [facility] mg oral tablet PO, Daily, # 2016 90 tab, 0 Refill(s) darifenacin 15 15 mg=1 tab, Active 05/23/ [facility] mg oral tablet, PO, Daily, # 2016 extended release 90 tab, 0 Refill(s) escitalopram 10 10 mg=1 tab, No Longer [facility] mg oral tablet PO, Daily, # Active 2016 90 tab, 3 Refill(s), Pharmacy: [facility] 808 Botulinum Toxin 600 unit, Inactive [facility] Type A Route: IM, 2016 ONCJULIA, Dosing Weight 70.455, kg, Start date: 02/11/17 [...] Inactive [facility] Type A Route: IM, 2016 ONCJULIA, Dosing Weight 70.455, kg, Start date: 11/12/16 [...] 2017 [Lexapro] 90 tab, 1 Refill(s), Pharmacy: [facility] Escitalopram 10 10 mg=1 tab, No Longer [facility] MG Oral Tablet PO, Daily, # Active 2017 [Lexapro] 90 tab, 0 Refill(s), Pharmacy: [facility] Botulinum Toxin 500 unit, Inactive [facility] Type A Route: IM, 2016 ONCJULIA, Dosing Weight 70.455, kg, Start date: 08/13/16 11:00:00 ESTIMATOR, Duration: 30 day, Stop date: 09/12/16 10:59:00 ESTIMATOR Divalproex 125 mg=1 Active [facility] Sodium 125 MG tab, PO, 2016 Enteric Coated BID, # 60 Tablet tab, 2 Refill(s), Pharmacy: [facility] Divalproex 250 mg=1 Active [facility] Sodium 250 MG tab, PO, 2015 Enteric Coated BID, # 180 Tablet tab, 2 Refill(s), Pharmacy: [facility] [place] Claritin 10 mg, PRN, Active [facility] 0 Refill(s) 2015 Aleve Caplet 220 mg, PO, Active [facility] PRN, 0 2015 Refill(s) Botulinum Toxin 600 unit, Inactive [facility] Type A Route: IM, 2015 ONCALL, Dosing Weight 64.091, kg, Start date: 05/10/16 16:00:00 CDT, Duration: 30 day, Stop date: 06/09/16 14:59:00 ESTIMATOR onabotulinumtoxi 600 unit, Inactive [facility] nA Route: IM, 2015 ONCALL, Dosing Weight 57.273, kg, Start date: 02/06/16 12:00:00 CDT, Duration: 30 day, Stop date: 03/07/16 11:59:00 CDT Escitalopram 10 10 mg=1 tab, Active [facility] MG Oral Tablet PO, Daily, # 2016 [Lexapro] 90 tab, 2 Refill(s), Pharmacy: [facility]08 Divalproex 250 mg=1 Active [facility] Sodium 250 MG tab, PO, 2016 Enteric Coated BID, # 180 Tablet tab, 2 Refill(s), Pharmacy: [facility]08 atorvastatin 20 20 mg=1 tab, Active [facility] mg oral tablet PO, Bedtime, 2016 # 30 tab, 0 Refill(s) amantadine 100 100 mg=1 Active [facility] mg oral capsule cap, PO, 2016 Daily, # 90 cap, 4 Refill(s), Pharmacy: [facility] Divalproex 250 mg=1 Active [facility] Sodium 250 MG tab, PO, 2016 Enteric Coated BID, # 180 Tablet tab, 2 Refill(s), Pharmacy: [facility]08 Escitalopram 10 10 mg=1 tab, Active [facility] MG Oral Tablet PO, Daily, # 2016 [Lexapro] 90 tab, 2 Refill(s), Pharmacy: [facility] Alprazolam 0.25 0.25 mg=1 Active [facility] MG Oral Tablet tab, PO, PRN 2016 anxiety, stress, # 1 tab, 0 Refill(s) [...] 2015 [Lexapro] 90 tab, 2 Refill(s), Pharmacy: [facility]08 Divalproex 250 mg=1 Active [facility] Sodium 250 MG tab, PO, 2015 Enteric Coated BID, # 180 Tablet tab, 2 Refill(s), Pharmacy: [facility]08 amantadine 100 100 mg=1 Active [facility] mg oral capsule cap, PO, 2015 Daily, # 90 cap, 2 Refill(s), Pharmacy: [facility]08 onabotulinumtoxi 600 unit, Inactive [facility] nA Route: IM, 2014 ONCALL, Dosing Weight 58.182, kg, Start date: 04/18/15 10:00:00, Duration: 30 day, Stop date: 05/18/15 9:59:00 donepezil 10 mg 10 mg=1 tab, Active [facility] oral tablet PO, Daily, # 2014 30 tab, 2 Refill(s), Pharmacy: [facility]08 onabotulinumtoxi 600 unit, Inactive [...] Active [facility] oral tablet PO, Daily, # 2014 90 tab, 2 Refill(s), Pharmacy: [facility]08 divalproex 250 mg=1 Active [facility] sodium 250 mg tab, PO, 2015 oral enteric BID, # 180 coated tablet tab, 2 Refill(s), Pharmacy: [facility]08 amantadine 100 100 mg=1 Active 03/13/ [facility] mg oral capsule cap, PO, 2014 Daily, # 90 cap, 2 Refill(s), Pharmacy: [facility]08 Escitalopram 10 10 mg=1 tab, Active [facility] MG Oral Tablet PO, Daily, # 2014 [Lexapro] 90 tab, 2 Refill(s), Pharmacy: [facility]08 oxybutynin 10 mg 10 mg=1 tab, Active [facility] oral tablet, PO, Daily, # 2014 extended release 30 tab, 0 Refill(s) divalproex 250 mg=1 Inactive [facility] sodium 250 mg tab, PO, 2015 oral enteric BID, # 90 coated tablet tab, 0 Refill(s) onabotulinumtoxi 500 unit, Inactive [facility] nA Route: IM, 2013 Drug form: INJ, ONCALL, Dosing Weight 57.273, kg, Start date: 07/12/14 10:00:00, Duration: 30 day, Stop date: 08/11/14 9:59:00Notes : "TO BE RECONSTITUTE D AND ADMINISTERED ONLY BY A PHYSICIAN" Reconstitute with preservative free NS only. Stability=4 hours after reconstituti on. (Same As: Botox) donepezil 5 mg 5 mg=1 tab, Active [facility] oral tablet PO, Daily, # 2013 90 tab, 2 Refill(s), Pharmacy: [facility]/pharmacy #[id number] Escitalopram 10 10 mg=1 tab, Active [facility] MG Oral Tablet PO, Daily, # 2013 [Lexapro] 90 tab, 3 Refill(s), Pharmacy: [facility]/pharmacy #[id number] donepezil 5 mg 5 mg=1 tab, Active [facility] oral tablet PO, Daily, # 2013 30 tab, 1 Refill(s), Pharmacy: [facility]/pharmacy #[id number] divalproex 500 mg=1 Active [facility] sodium 500 mg tab, PO, 2013 oral enteric BID, # 180 coated tablet tab, 3 Refill(s), Pharmacy: [facility]/pharmacy #[id number] sodium chloride 20 mL, Inactive [facility] Route: [facility] [place], 2013 Start date: 04/05/14 10:00:00, Duration: 1 doses or timesNotes: preservative free. onabotulinumtoxi 600 unit, Inactive 04/05/ [facility] nA Route: IM, 2013 Drug form: INJ, [place]ANES[place], Dosing Weight 57.273, kg, Start date: 04/05/14 [...] Refill(s) darifenacin 7.5 7.5 mg=1 Active 03/28/ [facility] mg oral tablet, tab, PO, 2013 extended release Daily, # 30 tab, 0 Refill(s) divalproex 500 mg, PO, Active 02/13/ [facility] sodium delayed BID, 0 2014 release Refill(s) Escitalopram 20 20 mg=1 tab, Active 02/13/ [facility] MG Oral Tablet PO, Daily, # 2013 [Lexapro] 30 tab, 0 Refill(s) Escitalopram 20 20 mg=1 tab, Active 01/04/ [facility] MG Oral Tablet PO, Daily, # 2013 [Lexapro] 30 tab, 3 Refill(s) pravastatin 40 40 mg=1 tab, Active 01/04/ [facility] mg oral tablet PO, Bedtime, 2013 # 30 tab, 0 Refill(s) LORAzepam 0.5 mg 0.25 mg, 0.5 PO Active Dragojlovic 03/02/ MH [facility] oral tablet tab, PO, 2012 Bedtime, 15 tab, Substitution Allowed LORAzepam 0.5 mg 0.5 mg, 1 PO Active Dragojlovic 03/02/ [facility] oral tablet tab, PO, 2012 QAM, 30 tab, Substitution Allowed acetaminophen 650 mg, 2 PO Active Dragojlovic 03/02/ [facility] 325 mg oral tab, PO, 2012 tablet Q4H, PRN, 168 tab, as needed for pain, Substitution Allowed, TAB senna 8.6 mg 25.8 mg, 3 PO Active Dragojlovic 03/02/ [facility] oral tablet tab, PO, 2012 Daily, PRN, 90 tab, Constipation , Substitution Allowed, Maintenance, TAB fexofenadine 60 180 mg, 3 PO Active Patricklovic 03/02/ [facility] mg oral tablet tab, PO, 2012 Daily, 90 tab, Substitution Allowed, TAB atorvastatin 20 10 mg, 0.5 PO Active Patricklomelvina 03/02/ [facility] mg oral tablet tab, PO, 2012 Bedtime, 15 tab, Substitution Allowed, TAB amantadine 100 100 mg, 1 PO Active Elanaosagrariolovic 03/02/ [facility] mg oral capsule cap, PO, 2012 BID-02-09, 60 cap, Substitution Allowed, CAP Vitamin B 1 cap, PO, PO Active Ryan 03/02/ [facility] Complex oral Daily, 30 2012 capsule cap, Substitution Allowed, Maintenance, CAP LORAzepam 0.5 mg 0.25 mg, 0.5 PO No Longer Elanaosagrariolomelvina 03/02/ [facility] oral tablet tab, PO, Active 2012 BID, 30 tab, Substitution Allowed, TAB Estrace Vaginal 1 appl, TOP, TOP [facility] Cream 0.1 mg/g Every Other 2012 Day, 30 gm, Substitution Allowed, CRM escitalopram 20 10 mg, 0.5 PO Active Elanaosagrariolomelvina 03/02/ [facility] mg oral tablet tab, PO, 2012 Bedtime, 15 tab, Substitution Allowed, TAB docusate sodium 100 mg, 1 PO Active Elanaosagrariolomelvina 03/02/ [facility] 100 mg oral cap, PO, 2012 capsule BID, 60 cap, Substitution Allowed, CAP baclofen 0.5 151.68 mcg, INTRATHECA Active [facility] mg/mL INTRATHECAL, L 2012 intrathecal Continuous, solution PRN, 1 unit, Other -See Comment, Substitution Allowed, INJ Ativan 0.25 mg, 0.5 PO No Longer Carol[place] [facility] tab, Route: Active 2012 PO, Drug form: TAB, Daily, Dosing Weight 51.818, kg, PRN as needed for anxiety, Start date: 02/25/13 9:43:00, Duration: 30 day, Stop date: 03/27/13 9:42:00 Antonella 24 Hour 180 mg, 3 PO No Longer [place] [facility] Allergy tab, Route: Active 2012 PO, Drug form: TAB, Daily, Dosing Weight 51.818, kg, Start date: 02/23/13 8:30:00, Duration: 60 day, Stop date: 04/23/13 8:30:00 mirabegron mirabegron, PO No Longer Dragojlovic [facility] 25 mg, Active 2012 Route: PO, Daily, 02/21/13 8:30:00, Duration: 90 day, Stop date: 05/21/13 8:30:00 amantadine 100 mg, 1 PO No Longer [place] [facility] cap, Route: Active 2012 PO, Drug form: CAP, BID-02-09, Dosing Weight 51.818, kg, Start date: 02/20/13 12:00:00, Duration: 60 day, Stop date: 04/21/13 7:00:00 BD Normal Saline 10 mL, IV No Longer [place] [facility] Flush Route: IV, 2012 Drug Form: INJ, PRN, PRN Line Flush, Start date: 02/19/13 15:54:00, Duration: 60 day, Stop date: 04/20/13 15:53:00 senna 8.6 mg 25.8 mg, 3 PO No Longer Lillian [facility] oral tablet tab, Route: Active 2012 PO, Drug Form: TAB, Dosing Weight 51.818, kg, Daily, PRN Constipation , Start date: 02/18/13 11:25:00, Duration: 90 day, Stop date: 05/19/13 11:24:00 Claritin 10 mg, 1 PO No Longer [place] [facility] tab, Route: Active 2012 PO, Drug form: TAB, Daily, Dosing Weight 51.818, kg, Start date: 02/18/13 8:30:00, Duration: 90 day, Stop date: 05/18/13 8:30:00 bisacodyl 10 mg, 1 [place] No Longer [place] [facility] supp, Route: Active 2012 IL, Drug form: SUPP, ONCE, Dosing Weight 51.818, [...] Duration: 90 day, Stop date: 05/16/13 21:00:00 [place] 5/325 oral 1 tab, PO No Longer Davis [facility] tablet Route: PO, Active 2012 Drug Form: TAB, Dosing Weight 51.818, kg, Q6H, PRN Pain Score 6-10, Start date: 02/15/13 13:53:00, Duration: 30 day, Stop date: 03/17/13 13:52:00 senna 8.6 mg 8.6 mg, 1 PO No Longer [place] [facility] oral tablet tab, Route: Active 2012 PO, Drug Form: TAB, Dosing Weight 51.818, kg, Daily, PRN Constipation , Start date: 02/15/13 9:06:00, Duration: 90 day, Stop date: 05/16/13 9:05:00 amantadine 100 mg, 1 PO No Longer [place] [facility] cap, Route: Active 2012 PO, Drug form: CAP, QAM, Dosing Weight 51.818, kg, Start date: 02/15/13 6:30:00, Duration: 60 day, Stop date: 04/15/13 6:30:00 [place] 5/325 oral 1 tab, PO No Longer Sambasivan [facility] tablet Route: PO, Active 2012 Drug Form: TAB, Dosing Weight 51.818, kg, ONCE, Start date: 02/14/13 22:55:00, Stop date: 02/14/13 22:55:00 Claritin 10 mg, 1 PO No Longer Lillian 07/17/ MH [facility] tab, Route: Active 2012 PO, Drug form: TAB, Daily, Dosing Weight 51.818, kg, Start date: 02/14/13 18:30:00, Duration: 90 day, Stop date: 05/15/13 8:30:00 Tylenol 650 mg, 2 PO No Longer [place] 02/14/ MH [facility] [...] Vaginal 1 appl, TOP No Longer [place] [facility] Cream 0.1 mg/g Route: TOP, Active 2012 Drug form: CRM, Every Other Day, [...] 7.5 mg, 0.5 PO No Longer [place] 02/13/ [facility] tab, Route: Active 2012 PO, Drug form: TAB, Bedtime, Dosing Weight 51.818, kg, Start date: 02/12/13 21:00:00, Duration: 90 day, Stop date: 05/12/13 21:00:00 metoprolol 12.5 mg, 0.5 PO No Longer Dragojlovic [facility] tartrate tab, Route: Active 2012 PO, Drug form: TAB, Q12H, Dosing Weight 51.818, kg, Start date: 02/12/13 21:00:00, Duration: 60 day, Stop date: 04/14/13 9:00:00 Ativan 0.5 mg, 1 PO No Longer [place] 02/13/ MH [facility] [...] INTRATHECA No Longer [place] [facility] INTRATHECAL, L 2012 Drug form: INJ, Continuous, PRN Other -See Comment, Start date: 02/12/13 18:16:00, Stop date: 04/13/13 18:15:00 docusate sodium 100 mg, 1 PO No Longer [place] [facility] 100 mg oral cap, Route: 2012 capsule PO, Drug form: CAP, Every Other Day, Dosing Weight 51.818, kg, PRN as needed for constipation , Start date: 02/12/13 16:01:00, Duration: 90 day, Stop date: 05/13/13 16:00:00 Claritin 10 mg, 1 PO No Longer [place] [facility] tab, Route: [...] TAB B-Complex SR Substitution No Longer [place] [facility] oral tablet, Allowed, 2012 extended release Maintenance phenytoin 777.27 mg, IVP No Longer [place] 02/12/ MH [facility] 15.55 mL, Active 2012 Route: IVP, Drug form: INJ, PRN, Dosing Weight 51.818, kg, PRN Seizure, Start date: 02/12/13 12:20:00, Duration: 60 day, Stop date: 04/13/13 12:19:00 LORAzepam 2 mg, 1 mL, IVP No Longer [place] [facility] Route: IVP, Active 2012 Drug form: INJ, PRN, Dosing Weight 51.818, kg, PRN Seizure, Start date: 02/12/13 12:20:00, Duration: 60 day, Stop date: 04/13/13 12:19:00 phenobarbital 1,036.36 mg, IVP No Longer [place] 02/12/ [facility] 15.94 mL, Active 2012 Route: IVP, Drug form: INJ, PRN, Dosing Weight 51.818, kg, PRN Seizure, Start date: 02/12/13 12:20:00, Duration: 60 day, Stop date: 04/13/13 12:19:00 docusate sodium 100 mg, PO, PO Active [facility] 100 mg oral BID, PRN, 2012 capsule cap, Constipation , Substitution Allowed [...] TAB mirtazapine 7.5 PO, Bedtime, PO Active 07/20/ [facility] mg oral tablet Substitution 2011 Allowed [...] Maintenance carbidopa-levodo 1 tab, PO, PO Active [facility] pa 50 mg-200 mg BID, 90 tab, 2011 oral tablet, Substitution extended release Allowed, Maintenance Risperdal 0.25 PO, 30, 10, PO Active [facility] mg oral tablet Substitution 2010 Allowed Allergies, Adverse Reactions, Alerts Substance Category Reaction Severity Reaction Status Date Comments Source type Reported Immunizations Immunization Date Given Site Status Last Updated Comments Source Results Order Name Results Value Reference Date Interpretation Comments Source Range Brain wo Brain wo Patient Name: GINGER FUENTES 01/12 - OPID contrast contrast MRI /2016 - [place] MRI : 1945; Age: 71 years y/o Female MR: [id number] Read by: Luther Hartman MD Dictated Date/time: [...] diffusely. 2. Nonobstructive bowel gas pattern. SL: [id number] Brain wo Brain wo EXAM: CT BRAIN WITHOUT CONTRAST 03/19 - [facility] contrast CT contrast CT /2013 - [...] Basophils # 0.1 K/CMM 0.0 - 0.2 02/26 Normal [facility] /2012 HEMATOLOGY Lymphocytes 34.0 % 20.0 - 02/26 Normal [facility] 40.0 /2012 HEMATOLOGY Monocytes 8.2 % 2.0 - 12.0 02/26 Normal [facility] /2012 HEMATOLOGY Segs 54.0 % 45.0 - 02/26 Normal [facility] 75.0 /2012 HEMATOLOGY Segs-Bands # 4.2 K/CMM 1.5 - 8.1 02/26 Normal [facility] /2012 HEMATOLOGY Lymphocytes 2.7 K/CMM 1.0 - 5.5 02/26 Normal [facility] # /2012 HEMATOLOGY Eosinophils 2.9 % 0.0 - 4.0 / Normal [facility] /2012 HEMATOLOGY Basophils 0.9 % 0.0 - 1.0 02/26 Normal [facility] /2012 HEMATOLOGY Hct 35.9 % 36.0 - 02/26 LOW MH [facility] 48.0 /2012 HEMATOLOGY MCV 91.5 fL 81.0 - 02/26 Normal [facility] 99.0 /2012 HEMATOLOGY Hgb 12.1 g/dL 12.0 - 02/26 Normal MH [facility] 16.0 /2012 HEMATOLOGY MCHC 33.8 g/dL 32.0 - 02/26 Normal MH [facility] 36.0 /2012 HEMATOLOGY MCH 30.9 pg 27.0 - 02/26 Normal MH [facility] 31.0 HEMATOLOGY Platelet 310 K/CMM 133 - 450 02/26 Normal [facility] /2012 HEMATOLOGY RDW 12.6 % 11.5 - 02/26 Normal MH [facility] 14.5 HEMATOLOGY MPV 8.2 fL 7.4 - 10.4 02/26 Normal MH [facility] /2012 HEMATOLOGY WBC 7.8 K/CMM 3.7 - 10.4 02/26 Normal [facility] /2012 HEMATOLOGY RBC 3.93 M/CMM 4.20 - 02/26 LOW MH [facility] 5.40 CHEMISTRY eGFR 102 02/21 NA 1Result Comment: The eGFR is calculated using the CKD-EPI formula. In most young, healthy individuals the eGFR will be > 90 mL/min/1.73m2. The eGFR declines with age. An eGFR of 60-89 may be normal in [facility] mL/min/1.7 /2012 some populations, particularly the elderly, [...] 103 meq/L 95 - 109 02/21 Normal MH [facility] CHEMISTRY Sodium Lvl 143 meq/L 135 - 145 02/21 Normal MH [facility] CHEMISTRY Potassium 4.1 meq/L 3.5 - 5.1 02/21 Normal [facility] Lv CHEMISTRY Creatinine 0.5 mg/dL 0.5 - 1.4 02/21 Normal [facility] Lvl CHEMISTRY Calcium Lvl 8.8 mg/dL 8.5 - 10.5 02/21 Normal MH [facility] /2012 CHEMISTRY CO2 33 meq/L 24 - 32 02/21 HI MH [facility] CHEMISTRY AGAP 11.1 meq/L 10.0 - 02/21 Normal [facility] 20.0 CHEMISTRY Glucose Lvl 104 mg/dL 70 - 99 02/21 HI 4Interpretive Data: Adult reference range values reflect the clinical guidelines [facility] of the [place] [employer]. CHEMISTRY BUN 15 mg/dL 7 - 22 02/21 Normal [facility] HEMATOLOGY Basophils # 0.0 K/CMM 0.0 - 0.2 02/20 Normal MH [facility] HEMATOLOGY Eosinophils 0.2 K/CMM 0.0 - 0.5 02/20 Normal [facility] HEMATOLOGY Monocytes # 0.6 K/CMM 0.0 - 0.8 02/20 Normal [facility] HEMATOLOGY Basophils 0.3 % 0.0 - 1.0 02/20 Normal [facility] HEMATOLOGY Segs-Bands # 3.8 K/CMM 1.5 - 8.1 02/20 Normal [facility] HEMATOLOGY Monocytes 7.6 % 2.0 - 12.0 02/20 Normal [facility] HEMATOLOGY Eosinophils 2.9 % 0.0 - 4.0 02/20 Normal [facility] HEMATOLOGY Segs 50.9 % 45.0 - 02/20 Normal [facility] 75.0 HEMATOLOGY Lymphocytes 38.3 % 20.0 - 02/20 Normal [facility] 40.0 HEMATOLOGY Lymphocytes 2.9 K/CMM 1.0 - 5.5 02/20 Normal [facility] HEMATOLOGY MPV 8.3 fL 7.4 - 10.4 02/20 Normal [facility] HEMATOLOGY Hgb 12.2 g/dL 12.0 - 02/20 Normal [facility] 16.0 HEMATOLOGY RDW 12.3 % 11.5 - 02/20 Normal [facility] 14.5 HEMATOLOGY Platelet 310 K/CMM 133 - 450 02/20 Normal [facility] HEMATOLOGY MCH 30.1 pg 27.0 - 02/20 Normal [facility] 31.0 HEMATOLOGY MCHC 32.8 g/dL 32.0 - 02/20 Normal [facility] 36.0 /2012 HEMATOLOGY WBC 7.5 K/CMM 3.7 - 10.4 02/20 Normal [facility] HEMATOLOGY Hct 37.2 % 36.0 - 02/20 Normal [facility] 48.0 /2012 HEMATOLOGY MCV 91.7 fL 81.0 - 02/20 Normal [facility] 99.0 /2012 HEMATOLOGY RBC 4.06 M/CMM 4.20 - 02/20 LOW [facility] 5.40 /2012 Abdomen Abdomen w/wo EXAM: [...] the upper pole of the left kidney (/). Postcontrast, there is homogeneous enhancement of the [...] AGAP 11.2 meq/L 10.0 - 02/19 Normal [facility] 20.0 CHEMISTRY eGFR 110 02/19 NA [...] 31 meq/L 24 - 32 02/19 Normal [facility] CHEMISTRY Potassium 4.2 meq/L 3.5 - 5.1 02/19 Normal [facility] Lvl CHEMISTRY Creatinine 0.4 mg/dL 0.5 - 1.4 02/19 LOW [facility] Lvl CHEMISTRY Sodium Lvl 142 meq/L 135 - 145 02/19 Normal MH [facility] CHEMISTRY BUN 17 mg/dL 7 - 02/19 Normal [facility] CHEMISTRY Chloride Lvl 104 meq/L 95 - 109 02/19 Normal MH [facility] CHEMISTRY Glucose Lvl 104 mg/dL 70 - 99 02/19 HI 5Interpretive Data: Adult reference range values reflect the clinical guidelines of the [place] [employer]. CHEMISTRY Calcium Lvl 8.4 mg/dL 8.5 - 10.5 02/19 LOW MH [facility] HEMATOLOGY RBC 3.73 M/CMM 4.20 - 02/19 LOW [facility] 5.40 /2012 HEMATOLOGY Hgb 11.6 g/dL 12.0 - 02/19 LOW [facility] 16.0 HEMATOLOGY MPV 8.9 fL 7.4 - 10.4 02/19 Normal MH [facility] HEMATOLOGY MCHC 34.0 g/dL 32.0 - 02/19 Normal [facility] 36.0 HEMATOLOGY MCH 31.1 pg 27.0 - 02/19 HI MH [facility] 31.0 HEMATOLOGY Platelet 270 K/CMM 133 - 450 02/19 Normal [facility] /2012 HEMATOLOGY MCV 91.2 fL 81.0 - 02/19 Normal [facility] 99.0 HEMATOLOGY WBC 7.4 K/CMM 3.7 - 10.4 02/19 Normal MH [facility] /2012 HEMATOLOGY RDW 12.4 % 11.5 - 07 Normal [facility] 14.5 /2012 HEMATOLOGY Hct 34.0 % 36.0 - 07 LOW MH [facility] 48.0 /2012 HEMATOLOGY Lymphocytes 3.0 K/CMM 1.0 - 5.5 07/ Normal [facility] # /2012 HEMATOLOGY Basophils # 0.0 K/CMM 0.0 - 0.2 / Normal MH [facility] /2012 HEMATOLOGY Eosinophils 0.2 K/CMM 0.0 - 0.5 / Normal MH [facility] # /2012 HEMATOLOGY Monocytes # 0.7 K/CMM 0.0 - 0.8 07/ Normal [facility] /2012 HEMATOLOGY Segs 47.9 % 45.0 - 07 Normal [facility] 75.0 /2012 HEMATOLOGY Lymphocytes 40.4 % 20.0 - 07/ HI [facility] 40.0 /2012 HEMATOLOGY Segs-Bands # 3.5 K/CMM 1.5 - 8.1 02/19 Normal [facility] HEMATOLOGY Eosinophils 2.3 % 0.0 - 4.0 / Normal [facility] /2012 HEMATOLOGY Monocytes 9.3 % 2.0 - 12.0 / Normal [facility] /2012 HEMATOLOGY Basophils 0.1 % 0.0 - 1.0 / Normal [facility] /2012 Retroperito Retroperiton EXAM: US RENAL 02/15 - [...] based on the clinical practice guidelines [facility] /2012 of the [place] [employer] for diabetes screening; levels of 5.7%-6.4% are indicative of pre-diabetes. HEMATOLOGY INR 0.99 0.85 - 02/13 Normal 12Interpretive Data: RECOMMENDED RANGES FOR PROTIME INR: [facility] 08.17 2.0-3.0 for most medical and surgical thromboembolic states. 2.5-3.5 for artificial heart valves and recurrent embolism. INR SHOULD BE USED ONLY FOR PATIENTS ON STABLE ANTICOAGULANT THERAPY. HEMATOLOGY PT 13.3 s 12.0 - 02/13 Normal [facility] 14.7 /2012 HEMATOLOGY PTT 31.6 s 22.9 - 02/13 Normal 13Interpretiv [facility] 35.8 /2012 e Data: Heparin Therapeutic Range: 57 - 92 Seconds IMMUNOLOGY Prealbumin 22.0 mg/dL 18.0 - 02/13 Normal [facility] 45.0 /2012 CHEMISTRY T4 Free 0.92 ng/dL 0.76 - 02/13 Normal [facility] 1.46 /2012 CHEMISTRY TSH 3.450 0.360 - 02/13 Normal [facility] uIU/mL 3.740 /2012 CHEMISTRY Magnesium 2.0 mg/dL 1.8 - 2.4 02/13 Normal [facility] Lvl /2012 CHEMISTRY Phosphorus 4.7 mg/dL 2.5 - 4.5 02/13 [facility] /2012 CHEMISTRY B/C Ratio 28 6 - 25 02/13 [facility] /2012 CHEMISTRY A/G Ratio 1.5 0.7 - 1.6 02/13 Normal [facility] /2012 CHEMISTRY Globulin 2.8 g/dL 2.0 - 4.0 02/13 Normal [facility] CHEMISTRY AGAP 10.0 meq/L 10.0 - 02/13 [...] 14 unit/L 0 - 37 02/13 Normal [facility] CHEMISTRY Total 6.9 g/dL 6.4 - 8.4 02/13 Normal [facility] CHEMISTRY Calcium Lvl 9.4 mg/dL 8.5 - 10.5 02/13 Normal [facility] CHEMISTRY Bili Total 1.6 mg/dL 0.2 - 1.3 02/13 HI CHEMISTRY CO2 35 meq/L 24 - 32 02/13 HI R CHEMISTRY Glucose Lvl 103 mg/dL 70 - 99 02/13 HI 6Interpretive Data: Adult reference range values reflect the clinical guidelines of the [place] [employer]. CHEMISTRY Sodium Lvl 141 meq/L 135 - 145 02/13 Normal [facility] CHEMISTRY Creatinine 0.5 mg/dL 0.5 - 1.4 02/13 Normal [facility] Lvl CHEMISTRY Chloride Lvl 100 meq/L 95 - 109 02/13 Normal [facility] CHEMISTRY Potassium 4.0 meq/L 3.5 - 5.1 02/13 Normal [facility] Lvl CHEMISTRY BUN 14 mg/dL 7 - [...] HDL 59 mg/dL >=61 02/13 LOW 9Interpretive [facility] Data: Reference ranges are based on [...] NHLBI National Cholesterol Education Program (ATP III, 2000). CHEMISTRY CHD Risk 3.36 3.90 - 02/13 [...] 0.2 EU/dL 0.1 - 1.0 02/13 Normal [facility] Urob[facility] /2012 URINALYSIS UA Nitrite Negative Negative 02/13 Normal [facility] (02/13/2013 06:00:54) CHEMISTRY AGAP 12.2 meq/L 10.0 - 09/21 Normal [facility] 20.0 CHEMISTRY eGFR 110 09/21 NA 1Result Comment: The eGFR is calculated using the CKD-EPI formula. In most young, healthy individuals the eGFR will be > 90 mL/min/1.73m2. The eGFR declines with age. An eGFR of 60-89 may be normal in [facility] mL/min/1.7 /2012 some populations, particularly the elderly, [...] Calcium Lvl 9.4 mg/dL 8.5 - 10.5 02/21 Normal [facility] CHEMISTRY Glucose Lvl 71 mg/dL 70 - 99 09/21 Normal 2Interpretive Data: Adult reference range values reflect the clinical guidelines [facility] of the [place] [employer]. CHEMISTRY BUN 15 mg/dL 7 - 09/21 Normal [facility] CHEMISTRY Potassium 4.2 meq/L 3.5 - 5.1 09/21 Normal [facility] CHEMISTRY Chloride Lvl 100 meq/L 95 - 109 09/21 Normal [facility] CHEMISTRY Creatinine 0.4 mg/dL 0.5 - 1.4 09/21 LOW [facility] HEMATOLOGY MCV 93.4 fL 81.0 - 09/21 Normal [facility] 99.0 HEMATOLOGY MCHC 32.8 g/dL 32.0 - 09/21 Normal [facility] 36.0 HEMATOLOGY Hct 43.9 % 36.0 - 09/21 Normal [facility] 48.0 HEMATOLOGY MCH 30.6 pg 27.0 - 09/21 Normal [facility] 31.0 HEMATOLOGY Hgb 14.4 g/dL 12.0 - 09/21 Normal [facility] 16.0 HEMATOLOGY RDW 12.9 % 11.5 - 09/21 Normal [facility] 14.5 HEMATOLOGY MPV 8.7 fL 7.4 - 10.4 09/21 Normal [facility] HEMATOLOGY Platelet 349 K/CMM 133 - 450 09/21 Normal [facility] HEMATOLOGY RBC 4.70 M/CMM 4.20 - 09/21 Normal [facility] 5.40 /2012 HEMATOLOGY WBC 8.7 K/CMM 3.7 - 10.4 09/21 Normal [facility] HEMATOLOGY Eosinophils 0.1 K/CMM 0.0 - 0.5 09/21 Normal [facility] # HEMATOLOGY Basophils # 0.1 K/CMM 0.0 - 0.2 09/21 Normal [facility] HEMATOLOGY Eosinophils 0.9 % 0.0 - 4.0 09/21 Normal [facility] HEMATOLOGY Basophils 0.8 % 0.0 - 1.0 09/21 Normal [facility] HEMATOLOGY Monocytes # 0.7 K/CMM 0.0 - 0.8 09/21 Normal [facility] HEMATOLOGY Segs-Bands # 4.9 K/CMM 1.5 - 8.1 09/21 Normal [facility] HEMATOLOGY Lymphocytes 2.9 K/CMM 1.0 - 5.5 09/21 Normal [facility] /2012 HEMATOLOGY Segs 56.9 % 45.0 - 09/21 Normal [facility] 75.0 /2012 HEMATOLOGY Monocytes 7.7 % 2.0 - 12.0 [...] Many /HPF None Seen 09/21 Normal [facility] (09/21/2012 11:30:00) URINALYSIS UA RBC 3-5 /HPF 0 - 2 09/21 ABN [facility] *ABN* (09/21/2012 11:30:00) URINALYSIS UA 0.2 EU/dL 0.1 - 1.0 09/21 Normal [facility] Urob[place] URINALYSIS UA Blood Trace Negative 09/21 ABN [...] Normal [facility] (09/21/2012 11:30:00) Microbiolog Culture: 09/21 [facility] y Urine /2012 Vital Signs Vital Sign Value Date Comments Source BMI Calculated 22.64 08/25/2018 [facility] Weight 63.636 08/25/2018 [facility] Heart Rate 116 08/25/2018 [facility] Respitory Rate 18 08/25/2018 [facility] Systolic (mm Hg) 102 08/25/2018 [facility] Diastolic (mm Hg) 73 08/25/2018 [facility] Height 167.64 cm 08/25/2018 [facility] Weight 63.75 02/24/2018 [facility] Height 167.64 cm 02/24/2018 [facility] BMI Calculated 22.68 02/24/2018 [facility] Heart Rate 78 02/24/2018 [facility] Respitory Rate 20 02/24/2018 [facility] Systolic (mm Hg) 111 02/24/2018 [facility] Diastolic (mm Hg) 72 02/24/2018 [facility] BMI Calculated 23.61 08/26/2017 [facility] Weight 66.364 08/26/2017 [facility] Height 167.64 cm 08/26/2017 [facility] BMI Calculated 23.78 05/23/2017 [facility] Weight 66.818 05/23/2017 [facility] Height 167.64 cm 05/23/2017 [facility] Respitory Rate 15 05/23/2017 [facility] Heart Rate 91 05/23/2017 [facility] Systolic (mm Hg) 13 05/23/2017 [facility] Diastolic (mm Hg) 78 05/23/2017 [facility] Weight 67.727 02/11/2017 [facility] Height 167.64 cm 02/11/2017 [facility] BMI Calculated 24.1 02/11/2017 [facility] Systolic (mm Hg) 110 02/11/2017 [facility] Diastolic (mm Hg) 76 02/11/2017 [facility] Heart Rate 20 02/11/2017 [facility] Respitory Rate 20 02/11/2017 [facility] Height 167.64 cm 12/13/2016 [facility] BMI [...] 92 11/12/2016 [facility] Respitory Rate 20 11/12/2016 [facility] Systolic (mm Hg) 113 11/12/2016 [facility] Diastolic (mm Hg) 79 11/12/2016 [facility] [...] cm 08/13/2016 [facility] Heart Rate 87 08/13/2016 [facility] Systolic (mm Hg) 113 08/13/2016 [facility] Diastolic (mm Hg) 71 08/13/2016 [facility] BMI Calculated 25.07 08/13/2016 [facility] Weight 70.455 08/13/2016 [facility] Respitory Rate 20 08/13/2016 [facility] Heart Rate 87 08/13/2016 [facility] Systolic (mm Hg) 113 08/13/2016 [facility] Diastolic (mm Hg) 71 08/13/2016 [facility] BMI Calculated 23.78 06/04/2016 [facility] Weight 66.818 06/04/2016 [facility] Height 167.64 cm 06/04/2016 [facility] Systolic (mm Hg) 105 06/04/2016 MH [...] 02/06/2016 [facility] Systolic (mm Hg) 109 02/06/2016 [facility] Diastolic (mm Hg) 78 02/06/2016 [facility] Respitory Rate 20 02/06/2016 [facility] Height 167.64 cm 02/06/2016 [facility] BMI Calculated 22.81 02/06/2016 [facility] Heart Rate 96 02/06/2016 [facility] Respitory Rate 20 02/06/2016 [facility] Weight 64.091 02/06/2016 [facility] Systolic (mm Hg) 109 02/06/2016 [facility] Diastolic (mm Hg) 78 02/06/2016 [facility] Heart Rate 90 11/14/2015 [facility] Respitory Rate 18 11/14/2015 [facility] Systolic (mm Hg) 115 11/14/2015 MH [facility] Diastolic (mm Hg) 76 11/14/2015 [facility] Weight 62.273 11/14/2015 [facility] BMI Calculated 22.16 11/14/2015 [facility] Height 167.64 cm 11/14/2015 [facility] Height 167.64 cm 10/31/2015 [facility] Respitory Rate 18 10/31/2015 [facility] Systolic (mm Hg) 119 10/31/2015 [facility] Diastolic (mm Hg) 78 10/31/2015 [facility] Heart Rate 104 10/31/2015 [facility] BMI Calculated 20.38 10/31/2015 [facility] Weight 57.273 10/31/2015 [facility] Height 167.64 cm 10/31/2015 [facility] BMI [...] Calculated 19.73 04/18/2015 [facility] Weight 55.455 04/18/2015 [facility] Systolic (mm Hg) 99 04/18/2015 [facility] Diastolic (mm Hg) 50 04/18/2015 [facility] Heart Rate 106 04/18/2015 [facility] Height 167.64 cm 04/18/2015 [facility] BMI Calculated 20.22 02/07/2015 [facility] Height 167.64 cm 02/07/2015 [facility] Respitory Rate 20 02/07/2015 [facility] Heart Rate 92 02/07/2015 [facility] Weight 56.818 02/07/2015 [facility] Systolic (mm Hg) 100 02/07/2015 [facility] Diastolic (mm Hg) 72 02/07/2015 [facility] Weight 58.182 01/10/2015 [facility] BMI Calculated 20.7 01/10/2015 [facility] Height 167.64 cm 01/10/2015 [facility] BMI Calculated 22 10/11/2014 [facility] Weight 61.818 10/11/2014 [facility] Height 167.64 cm 10/11/2014 [facility] Heart Rate 86 10/11/2014 [facility] Respitory Rate 18 10/11/2014 [facility] Systolic (mm Hg) 115 10/11/2014 [facility] Diastolic (mm Hg) 55 10/11/2014 [facility] Weight 61.818 10/11/2014 [facility] BMI Calculated 22 10/11/2014 [facility] Height 167.64 cm 10/11/2014 [facility] Diastolic (mm Hg) 71 07/12/2014 [facility] Systolic (mm Hg) 102 07/12/2014 [facility] Heart Rate 69 07/12/2014 [facility] Respitory Rate 20 07/12/2014 [facility] Weight 61.364 07/12/2014 [facility] BMI Calculated 21.84 07/12/2014 [facility] Height 167.64 cm 07/12/2014 [facility] Diastolic (mm Hg) 79 06/21/2014 [facility] Weight 60.455 06/21/2014 [facility] Systolic (mm Hg) 117 06/21/2014 [facility] Respitory Rate 20 06/21/2014 [facility] BMI Calculated 21.51 06/21/2014 [facility] Heart Rate 89 06/21/2014 [facility] Height 167.64 cm 06/21/2014 [facility] Heart Rate 77 04/05/2014 [facility] Diastolic (mm Hg) 73 04/05/2014 [facility] [...] 167.64 cm 08/31/2013 [facility] Weight 54.545 08/31/2013 [facility] Diastolic (mm Hg) 67 03/02/2013 [facility] [...] 18 07/20/2012 [facility] Heart Rate 92 07/20/2012 [facility] Height 154.94 cm 07/20/2012 [facility] Weight 52.273 07/20/2012 [facility] Height 167.64 cm 07/11/2012 [facility] Weight 51.364 07/11/2012 [facility] Systolic (mm Hg) 108 07/11/2012 [facility] Diastolic (mm Hg) 53 07/11/2012 [facility] Heart Rate 94 07/11/2012 [facility] Respitory Rate 18 07/11/2012 [facility] Weight 60.000 02/29/2012 [facility] Height 167.64 cm 02/29/2012 [facility] Respitory Rate 16 02/29/2012 [facility] Systolic (mm Hg) 104 02/29/2012 [facility] Heart Rate 104 02/29/2012 [facility] Diastolic (mm Hg) 65 02/29/2012 [facility] Respitory Rate 18 12/28/2011 [facility] Heart Rate 92 12/28/2011 [facility] Diastolic (mm Hg) 75 12/28/2011 [facility] Systolic (mm Hg) 111 12/28/2011 [facility] Weight 60.455 12/28/2011 [facility] Height 167.64 cm 12/28/2011 [facility] Systolic (mm Hg) 107 09/21/2011 [facility] Diastolic (mm Hg) 82 09/21/2011 [facility] Heart Rate 87 09/21/2011 [facility] Respitory Rate 18 09/21/2011 [facility] Respitory Rate 18 08/27/2011 [facility] Heart Rate 108 08/27/2011 [facility] Diastolic (mm Hg) 66 08/27/2011 [facility] Systolic (mm Hg) 103 08/27/2011 [facility] Height 167.64 cm 08/27/2011 [facility] Weight 63.636 08/27/2011 [facility] Respitory Rate 18.0 04/20/2011 [facility] Systolic (mm Hg) 94.0 04/20/2011 [facility] Diastolic (mm Hg) 71.0 04/20/2011 [facility] Heart Rate 86.0 04/20/2011 [facility] Height 167.64 cm 04/20/2011 [facility] Weight 55.455 04/20/2011 [facility] Encounters Location Location Encounter Encounter Reason Attending ADM MT Status Source Details Type Number For Provider Date Date Visit Outpatient [id number] F/U EMELY TASTARD 08/27 Active [facility] Outpatient [id number] UNITS EMELY TASTARD 09/21 Active [facility] Outpatient [id number] F/U SCOOTER 12/27 Active [facility] 2 LILLIAN Outpatient [id number] 600 EMELY TASTARD 02/28 Active [facility] 5 UNITS /2011 Outpatient [id number] F/U EMELY TASTARD 07/11 Active [facility] Outpatient [id number] 600 EMELY TASTARD 07/20 Active [facility] 9 UNITS /2011 Outpatient [id number] ITB EMELY TASTARD 09/21 Active [facility] 3 TRIAL Outpatient [id number] ITB EMELY TASTARD 10/02 10/02 Active [facility] 2 TRIAL /2012 Outpatient [id number] F/U EMELY TASTARD 10/27 Active [facility] Outpatient [id number] 500 EMELY TASTARD 11/24 11/24 Active [facility] 1 UNITS /2012 Outpatient [id number] SPASTICI EMELY TASTARD 12/18 Active [facility] 7 Outpatient [id number] F/U EMELY TASTARD 01/12 Active [facility] Outpatient [id number] 400 EMELY TASTARD 01/25 Active [facility] 6 UNITS /2012 IR [id number] EMELY TASTARD 02/12 03/02 Active [facility] 0 /2012 Outpatient [id number] 400 EMELY TASTARD 08/31 Active [facility] 9 UNITS /2013 [facility] Outpatient [id number] _MAPID:E Scooter 10/30 10/31 [facility] Twin [id number] NCNTRRFV Lillian [facility] [id number] [facility] Outpatient [id number] Stacy 01/04 01/05 [facility] [place] 2 Magat /2013 [facility] Outpatient [id number] Stacy 02/13 02/14 [facility] [place] 6 Magat /2013 [facility] Outpatient [id number] Stacy 03/19 03/20 [facility] [place] 7 Magat /2013 [facility] Outpatient [id number] Allan 03/28 03/29 [facility] 8 Chung /2013 [facility] [id number] Stacy 04/05 04/06 [facility] 5 Magat /2013 [facility] [id number] Stacy 05/31 06/01 [facility] [place] 2 Magat /2013 [facility] [id number] Stacy 06/04 06/05 [facility] [place] 4 Magat /2013 [facility] [id number] Allan 06/21 06/22 [facility] [place] 3 Chung /2013 [facility] [id number] Stacy 07/12 07/13 [facility] [place] 0 Magat /2013 [facility] [id number] Stacy 10/11 10/12 [facility] Twin 7 Magat /2014 [facility] [id number] Stacy 11/22 11/23 [facility] 5 Magat /2014 [facility] [id number] Stacy 01/10 01/11 [facility] [place] 2 Magat /2014 [facility] [id number] Allan 02/07 02/08 [facility] 1 Chung /2014 [facility] Outpatient [id number] Stacy 04/18 04/19 [facility] 4 Magat /2014 [facility] Outpatient [id number] Stacy 05/16 05/17 [facility] 7 Magat /2014 [facility] Outpatient [id number] Allan 06/06 06/07 [facility] 5 Chung /2014 [facility] Outpatient [id number] Stacy 07/18 07/19 [facility] 6 Magat /2014 [facility] Outpatient [id number] Stacy 10/30 10/31 [facility] 1 Magat /2015 [facility] Outpatient [id number] Stacy 11/13 11/14 [facility] 9 Magat /2015 [facility] Outpatient [id number] Stacy 02/05 02/06 [facility] 2 Magat /2015 [facility] Outpatient [id number] Stacy 05/10 05/11 [facility] 4 Magat [facility] Outpatient [id number] Allan 06/04 06/05 [facility] 5 Chung [facility] Outpatient [id number] Stacy 08/13 08/14 [facility] 6 [place] [facility] Outpatient [id number] Allan 09/17 09/18 [facility] 8 Chung [facility] Outpatient [id number] Stacy 11/05 11/06 [facility] 9 Mag [facility] Outpatient [id number] Stacy 11/12 11/13 [facility] 1 Mag [facility] Outpatient [id number] Stacy 12/13 12/14 [facility] 4 Mag [facility] Outpt Diag [id number] Felix Hanson 01/12 01/13 [facility] Outpatient [id number] Stacy 02/11 02/12 [facility] 3 Mag [facility] Outpatient [id number] Stacy 05/11 05/12 [facility] 2 Mag [facility] Outpatient [id number] Stacy 05/23 05/24 [facility] 5 Mag [facility] Outpatient [id number] Stacy 08/26 08/27 [facility] 7 Mag [facility] Outpatient [id number] Stacy 10/31 11/01 [facility] 6 Mag [facility] Outpatient [id number] Stacy 02/24 02/25 [facility] 0 [facility] Outpatient [id number] Stacy 08/25 08/26 [facility] 3 Magat [facility] [place] [id number] ANOXIC EMELY TASTARD Cancel [facility] 2 BRAIN INJURY 342.1 Outpatient [id number] F/U EMELY TASTARD Cancel [facility] 0 Outpatient [id number] F/U EMELY TASTARD Cancel [facility] 9 Outpatient [id number] FU EMELY TASTARD Cancel [facility] 1 Outpatient [id number] FU EMELY TASTARD Cancel [facility] 7 Outpatient [id number] 600 EMELY TASTARD Cancel [facility] 3 UNITS Outpatient [id number] F/U SCOOTER Cancel [facility] 4 LILLIAN Outpatient [id number] F/U EMELY TASTARD Cancel [facility] 6 Outpatient [id number] F/U EMELY TASTARD Cancel [facility] 7 Outpatient [id number] F/U EMELY TASTARD Cancel [facility] 0 Outpatient [id number] NEUROGEN ARNOL Active [facility] 2 IC COOK BLADDER W/INCONT INENCE Outpatient [id number] F/U EMELY TASTARD Active [facility] 5 Outpatient [id number] 500/40 EMELY TASTARD Active [facility] 9 Procedures Procedure Code Date Perfomer Comments [place] [address] [facility] one extremity; each 9 additional extremity, 1-4 muscle(s) (List separately in addition to code for primary procedure) [place] [address] [facility] one extremity; 5 or 9 [place] [address] [facility] one extremity; 5 or 8 [place] [address] [facility] one extremity; each 8 additional extremity, 1-4 muscle(s) (List separately in addition to code for primary procedure) [place] [address] [facility] one extremity; 5 or 8 [place] [address] [facility] one extremity; 5 or 7 [place] [address] [facility] one extremity; 5 or 7 [place] [address] [facility] one extremity; each 7 additional extremity, 1-4 muscle(s) (List separately in addition to code for primary procedure[place] [address] [facility] one extremity; 5 or 7 [place] [address] [facility] one extremity; 5 or 7 more muscles Video urodynamic study [id number] [facility] 3 Video urodynamic study [id number] OPID 3 [place] Spinal cord [id number] removal [facility] stimulation<sup>1</sup 9 > Spinal cord [id number] removal OPID stimulation<sup>1</sup 9 [place] > Spinal cord [id number] 2removal [facility] stimulation 9 <sup>2</sup> Arthroscopy of [id number] (L) Knee [facility] knee<sup>2</sup> Chemodenervation 95438999 [facility] Tubal [id number] 1972 & 1980 [facility] ligation<sup>3</sup> Arthroscopy of [id number] (L) Knee OPID knee<sup>2</sup> [place] Chemodenervation [id number] OPID [place] Tubal [id number] 1972 & 1980 OPID ligation<sup>3</sup> [place] Arthroscopy of knee [id number] 1(L) Knee [facility] <sup>1</sup> Tubal ligation [id number] & 1980 [facility] <sup>3</sup>
--- OUTSIDE RECORDS SUMMARY | 2018-09-18 00:41 | XMS REPORT | CCD ---
:1945 Author Organization [facility] Team Providers Name Role Phone Manuel Clarke [...]
--- OUTSIDE RECORDS SUMMARY | 2018-09-18 00:41 | XMS REPORT | CCD ---
:1945 Author Organization [facility] Team Providers Name Role Phone Dorita Snyder [...]
--- OUTSIDE RECORDS SUMMARY | 2018-09-18 00:41 | XMS REPORT | CCD ---
:1945 Author Organization [facility] Team Providers Name Role Phone Nikki [...]
--- OUTSIDE RECORDS SUMMARY | 2018-09-18 00:41 | XMS REPORT | CCD ---
:1945 Author Organization [facility] Care Team Providers Name [...]
--- OUTSIDE RECORDS SUMMARY | 2018-09-18 00:41 | XMS REPORT | CCD ---
:1945 Author Organization [facility] Care Team Providers Name Role Phone [...]
--- OUTSIDE RECORDS SUMMARY | 2018-09-18 00:41 | XMS REPORT | CCD ---
:1945 Author Organization [facility] Care Team Providers Name Role Phone [...]
--- OUTSIDE RECORDS SUMMARY | 2018-09-18 00:41 | XMS REPORT | CCD ---
:1945 Author Organization [facility] Care Team Providers Name Role Phone NinoNikki [...] 2 01/21/2009 00:00:00 Tubal ligation 3 1(L) [id number] & 1981
--- OUTSIDE RECORDS SUMMARY | 2018-09-18 00:41 | XMS REPORT | CCD ---
:[address] [facility] Care Team Providers Name Role Phone [...]
--- OUTSIDE RECORDS SUMMARY | 2018-09-18 00:41 | XMS REPORT | CCD ---
:1945 Author Organization [facility] Care Team Providers Name Role Phone Nikki [...] values reflect the clinical guidelines of the [place] [employer].HEMATOLOGY Most recent to oldest [Reference [...]
--- OUTSIDE RECORDS SUMMARY | 2018-09-18 00:41 | XMS REPORT | CCD ---
:1945 Author Organization [facility] Care Team Providers Name Role Phone Nikki [...]
--- OUTSIDE RECORDS SUMMARY | 2018-09-18 00:41 | XMS REPORT | CCD ---
:1945 Author Organization [facility] Team Providers Name Role Phone NinoracheleNikki Referring [...]
--- OUTSIDE RECORDS SUMMARY | 2018-09-18 00:42 | XMS REPORT | CCD ---
:1945 Author Organization [facility] Care Team Providers Name Role Phone Nikki Munoz Referring Provider Allergies, Adverse Reactions, Alerts Substance Reaction Status NKDA Active Problem List Condition Effective Dates Status Anoxic brain injury Active Back pain Active Cardiac arrest Resolved Fibroids Resolved Incontinence Active Migraine Active Pneumonia Resolved Weakness Active
--- OUTSIDE RECORDS SUMMARY | 2018-09-18 00:42 | XMS REPORT | CCD ---
:1945 Author Organization [facility] Team Providers Name Role Phone Jorge [...] Ordered capsule cap, Substitution Allowed, Maintenance, CAP [place] 5/325 oral tablet 1 tab, Route: PO, [...] mg, 1 supp, Route: 02/16/2013 02/16/2013 Completed [place], Drug form: SUPP, ONCE, Dosing Weight 51.818, kg, Start date: 02/16/13 13:29:00, Stop date: 02/16/13 13:29:00 [place] 5/325 oral tablet 1 tab, Route: PO, [...] values reflect the clinical guidelines of the [place] [employer].5Interpretive Data: Adult reference range values reflect the clinical guidelines of the [place] [employer].6Interpretive Data: Adult reference range values reflect the clinical guidelines of the [place] [employer].7Interpretive Data: Reference ranges are based [...] on the clinical practice guidelines of the [place] [employer] for diabetes screening; levels of [...]
--- OUTSIDE RECORDS SUMMARY | 2018-09-18 00:42 | XMS REPORT | CCD ---
:1945 Author Organization [facility] Care Team Providers Name Role Phone Nikki [...]
--- OUTSIDE RECORDS SUMMARY | 2018-09-18 00:42 | XMS REPORT | CCD ---
:1945 Author Organization [facility] Team Providers Name Role Phone Nikki [...]
--- OUTSIDE RECORDS SUMMARY | 2018-09-18 00:42 | XMS REPORT | CCD ---
:1945 Author Organization [facility] Care Team Providers Name Role Phone Nikki [...]
--- NOTE | 2018-09-18 02:13 | ER ---
Nurse's Notes [facility] Name: Aleksandr Chen Age: 72 yrs Sex: Female : 1945 Arrival Date: 09/18/2018 Time: 00:29 Bed 3 Private MD: Yvonne Nye C Diagnosis: Facial contusion. S/P Fall Presentation: 09/18 00:49 Presenting complaint: states: pt is wheelchair bound and was sitting on the aa1 edge of the bed waiting for help to get up and she slipped off the bed hitting her face on either the floor or bedside table. Denies LOC. Reports pt has hx of anoxic brain injury and is currently functioning at her baseline. bruising noted to terri eyes and hematoma noted to L frontal area. Transition of care: patient was not received from another setting of care. Onset of symptoms was September 18, 2018. Risk Assessment: Do you want to hurt yourself or someone else? Patient reports no desire to harm self or others. Initial Sepsis Screen: Does the patient meet any 2 criteria? No. Patient's initial sepsis screen is negative. Does the patient have a suspected source of infection? No. Patient's initial sepsis screen is negative. Care prior to arrival: None. 00:49 Method Of Arrival: Wheelchair aa1 00:49 Acuity: AMPARO 2 aa1 00:49 Mechanism of Injury: Fall out of bed. Trauma event details: Injury occurred in the [address], Injury occurred: at home. Injury occurred: September 17, 2018. Triage Assessment: 00:56 General: Appears in no apparent distress. comfortable, Behavior is calm, cooperative. [facility] Trauma Activation: Alert Physician: ED Physician; Name: Dr. Patel; Notified At: 00:34; Arrived At: 00:34 Physician: General Surgeon; Name: n/a; Notified At: 00:34; Arrived At: Physician: Radiology; Name: Jill Melchor; Notified At: 00:34; Arrived At: 00:35 Physician: Respiratory; Name: n/a; Notified At: 00:34; Arrived At: Physician: Lab; Name: n/a; Notified At: 00:34; Arrived At: Historical: - Allergies: 00:56 No Known Allergies; aa1 - Home Meds: 00:56 amiodarone 200 mg Oral tab 1 tab once daily [Active]; Eliquis 5 mg oral tab 1 tab 2 aa1 times per day [Active]; Lasix 20 mg Oral tab 1 tab once daily [Active]; metoprolol tartrate 25 mg Oral tab 1 tab 2 times per day [Active]; Lexapro 10 mg Oral tab 1 tab once daily [Active]; levothyroxine 50 mcg tab 1 tab once daily [Active]; atorvastatin 20 mg oral tab 1 tab once daily [Active]; Myrbetriq 50 mg oral Tb24 1 tab once daily [Active]; - PMHx: 00:56 anoxic brain injury; Atrial Fib; Hypothyroidism; Pneumonia; aa1 - PSHx: 00:56 neurostimulator insertion/removal; aa1 - Immunization history:: Pneumococcal vaccine is up to date, Flu vaccine is up to date. - Social history:: Smoking status: Patient/guardian denies using tobacco. - Immunization history: Last tetanus immunization: unknown. - Ebola Screening: : No symptoms or risks identified at this time. Screenin:49 Abuse screen: Denies threats or abuse. Denies injuries from another. Tuberculosis aa1 screening: No symptoms or risk factors identified. 02:30 Nutritional screening: No deficits noted. Fall Risk Total Powell Fall Scale indicates lp1 High Risk Score (45 or more points). Fall prevention measures have been instituted. Side Rails Up X 2 Placed Close to Nursing Station Family Present and informed to notify staff if the need to leave the bedside As available patient and family educated on Fall Prevention Program and Strategies. Primary Survey: 00:45 NO uncontrolled hemorrhage observed. A: The patient is alert. Airway: patent, Oxygen lp1 via nasal cannula at 3 liters per minute. Breathing/Chest: Respiratory pattern: regular, Respiratory effort: spontaneous, unlabored, Breath sounds: clear, bilaterally. Chest inspection: symmetrical rise and fall of the chest. Circulation: Skin color: pink, Skin temperature: warm, dry. Disability Alert. Exposure/Environment: All clothing and personal items were removed. Obvious injury(ies) are noted at this time: hematoma noted to left side of forehead, bruising to left and right side of nose A warming method has been applied: A warm blanket has been provided to the patient. 01:45 Reassessment Airway Airway Patent Breathing/Chest Respiratory pattern Regular lp1 Circulation Color [place] Temperature Warm Dry Disability Alert. Secondary Survey: 00:45 HEENT: Face Other bruising noted to right side of forehead, bruising to left and right lp1 side of nasal bridge. Gastrointestinal: No deficits noted. : No deficits noted. Musculoskeletal: contractures noted left hand and fingers. Assessment: 01:24 General: Appears in no apparent distress. Behavior is calm, cooperative. Pain: Denies ed1 pain. Neuro: Level of Consciousness is awake, alert, obeys commands, Oriented to person, normal for patient. Cardiovascular: Denies chest pain, Heart tones S1 S2 present. Respiratory: Airway is patent Respiratory effort is even, unlabored, Respiratory pattern is regular, symmetrical. GI: No signs and/or symptoms were reported involving the gastrointestinal system. : No signs and/or symptoms were reported regarding the genitourinary system. EENT: No signs and/or symptoms were reported regarding the EENT system. Derm: Skin is intact, is healthy with good turgor, Skin is dry, Skin is normal, Skin temperature is warm. Musculoskeletal: pt is wheelchair bound. 02:33 Reassessment: pt awake, no signs of distress noted, spouse verbalized understanding of bb and agrees to plan of care discharge instructions given pt assisted to wheelchair by family. Vital Signs: 00:56 BP 126 / 76; Pulse 63; Resp 16; Temp 97.6; Pulse Ox 94% 3 lpm ; Weight 62.6 kg; Height aa1 5 ft. 6 in. (167.64 cm); Pain 0/10; 01:24 BP 130 / 75; Pulse 62; Resp 17; Pulse Ox 95% on 3 lpm NC; Pain 0/10; ed1 02:29 BP 132 / 70; Pulse 60; Resp 12; Pulse Ox 97% on 3 lpm NC; lp1 02:35 Temp 97.4(O); bb 00:56 Body Mass Index 22.27 (62.60 kg, 167.64 cm) aa1 [place] Coma Score: 00:49 Eye Response: spontaneous(4). Verbal Response: oriented(5). Motor Response: obeys aa1 commands(6). Total: 15. Trauma Score (Adult): 00:49 Eye Response: spontaneous(1); Verbal Response: oriented(1); Motor Response: obeys aa1 commands(2); Systolic BP: > 89 mm Hg(4); Respiratory Rate: 10 to 29 per min(4); [place] Score: 15; Trauma Score: 12 02:00 Eye Response: spontaneous(1); Verbal Response: oriented(1); Motor Response: obeys lp1 commands(2); Systolic BP: > 89 mm Hg(4); Respiratory Rate: 10 to 29 per min(4); [place] Score: 15; Trauma Score: 12 ED Course: 00:29 Patient arrived in ED. am2 00:29 Yvonne Nye MD is Private Physician. am2 00:41 Miguel Angel Patel MD is Attending Physician. pkl 00:45 Thermoregulation: warm blanket given to patient. lp1 00:49 Patient has correct armband on for positive identification. Bed in low position. Call aa1 light in reach. Side rails up X2. Adult w/ patient. 00:49 Oxygen administration via nasal cannula \T\ 3L/min O2 via pt on home O2 at 3 L per spouse.aa1 00:52 Triage completed. aa1 00:56 Arm band placed on right wrist. aa1 00:[address] via stretcher. kw1 01:18 CT completed. Patient tolerated procedure well. Patient moved back from CT. kw1 01:24 Miranda Peters, RN is Primary Nurse. ed1 01:34 CT Head C Spine In Process Unspecified. EDMS 01:34 CT Facial Bones W/O Con In Process Unspecified. EDMS 02:12 Yvonne Nye MD is Referral Physician. pkl 02:29 No provider procedures requiring assistance completed. Patient did not have IV access lp1 during this emergency room visit. Administered Medications: No medications were administered Intake: 02:00 PO: 0ml; Total: 0ml. lp1 Output: 02:00 Urine: 0ml; Total: 0ml. lp1 Outcome: 02:13 Discharge ordered by . pkl 02:32 Discharged to home via wheelchair, with family. lp1 02:32 Condition: good 02:32 Discharge instructions given to family, Instructed on discharge instructions, follow up and referral plans. Demonstrated understanding of instructions, follow-up care. 02:32 Patient's length of stay was not longer than 2 hours. 02:33 Patient left the ED. lp1 Signatures: Dispatcher [employer] Juliana Iniguez RN RN aa1 Miguel Angel Patel MD MD pkl Ballard, Brenda, RN RN bb Miranda Peters RN RN ed1 Lisa Everett RN RN lp1 Teri Matos [facility] Lucie Alvarez [facility]
--- NOTE | 2018-09-18 02:14 | EDPHYS ---
Physician Documentation [facility] Name: Aleksandr Chen Age: 72 yrs Sex: Female : 1945 Arrival Date: 09/18/2018 Time: 00:29 Bed 3 Private MD: Yvonne Nye C ED Physician Miguel Angel Patel HPI: 09/18 01:01 This 72 yrs old Female presents to ER via Wheelchair with complaints of Fall pkl Injury, Facial Injury. 01:01 Details of fall: The patient fell from seated position, out of a wheelchair. Onset: The pkl symptoms/episode began/occurred today. Associated injuries: The patient sustained injury to the head, contusion, hematoma, ecchymosis around both eyes. Historical: - Allergies: 00:56 No Known Allergies; aa1 - Home Meds: 00:56 amiodarone 200 mg Oral tab 1 tab once daily [Active]; Eliquis 5 mg oral tab 1 tab 2 aa1 times per day [Active]; Lasix 20 mg Oral tab 1 tab once daily [Active]; metoprolol tartrate 25 mg Oral tab 1 tab 2 times per day [Active]; Lexapro 10 mg Oral tab 1 tab once daily [Active]; levothyroxine 50 mcg tab 1 tab once daily [Active]; atorvastatin 20 mg oral tab 1 tab once daily [Active]; Myrbetriq 50 mg oral Tb24 1 tab once daily [Active]; - PMHx: 00:56 anoxic brain injury; Atrial Fib; Hypothyroidism; Pneumonia; aa1 - PSHx: 00:56 neurostimulator insertion/removal; aa1 - Immunization history:: Pneumococcal vaccine is up to date, Flu vaccine is up to date. - Social history:: Smoking status: Patient/guardian denies using tobacco. - Immunization history: Last tetanus immunization: unknown. - Ebola Screening: : No symptoms or risks identified at this time. ROS: 01:01 Neck: Negative for injury, pain, and swelling. pkl 01:01 Eyes: Positive for ecchymosis around both eyes. 01:01 ENT: Negative for injury or acute deformity. 01:01 Cardiovascular: Negative for chest pain. 01:01 Respiratory: Negative for cough, shortness of breath. 01:01 Abdomen/GI: Negative for abdominal pain, nausea, vomiting, and diarrhea. 01:01 Back: Negative for injury or acute deformity. 01:01 : Negative for urinary symptoms. 01:01 MS/extremity: Negative for acute changes. 01:01 Skin: Negative for rash. 01:01 Neuro: Negative for altered mental status. Exam: 01:01 ENT: Nares patent. No nasal discharge, no septal abnormalities noted. Tympanic pkl membranes are normal and external auditory canals are clear. Oropharynx with no redness, swelling, or masses, exudates, or evidence of obstruction, uvula midline. Mucous membranes moist. 01:01 Head/face: Noted is ecchymosis, that is mild, of the both eyes. 01:01 Neck: Exam negative for acute changes. 01:01 Chest/axilla: Exam negative for acute changes. 01:01 Cardiovascular: Rate: normal, Rhythm: regular. 01:01 Respiratory: the patient does not display signs of respiratory distress, Respirations: normal, Breath sounds: are clear throughout. 01:01 Abdomen/GI: Bowel sounds: normal, Palpation: abdomen is soft and non-tender. 01:01 Back: Exam negative for acute changes. 01:01 : Exam negative for acute changes. 01:01 Musculoskeletal/extremity: Exam is negative for acute changes. 01:01 Skin: Exam negative for rash. 01:01 Neuro: Orientation: appropriate for stated age, Mentation: appropriate for stated age, Cranial nerves: grossly normal, Motor: moves all fours. Vital Signs: 00:56 BP 126 / 76; Pulse 63; Resp 16; Temp 97.6; Pulse Ox 94% 3 lpm ; Weight 62.6 kg; Height aa1 5 ft. 6 in. (167.64 cm); Pain 0/10; 01:24 BP 130 / 75; Pulse 62; Resp 17; Pulse Ox 95% on 3 lpm NC; Pain 0/10; ed1 02:29 BP 132 / 70; Pulse 60; Resp 12; Pulse Ox 97% on 3 lpm NC; lp1 02:35 Temp 97.4(O); bb 00:56 Body Mass Index 22.27 (62.60 kg, 167.64 cm) aa1 [place] Coma Score: 00:49 Eye Response: spontaneous(4). Verbal Response: oriented(5). Motor Response: obeys aa1 commands(6). Total: 15. Trauma Score (Adult): 00:49 Eye Response: spontaneous(1); Verbal Response: oriented(1); Motor Response: obeys aa1 commands(2); Systolic BP: > 89 mm Hg(4); Respiratory Rate: 10 to 29 per min(4); [place] Score: 15; Trauma Score: 12 02:00 Eye Response: spontaneous(1); Verbal Response: oriented(1); Motor Response: obeys lp1 commands(2); Systolic BP: > 89 mm Hg(4); Respiratory Rate: 10 to 29 per min(4); [place] Score: 15; Trauma Score: 12 MDM: 00:42 Patient medically screened. pkl 02:12 Data reviewed: vital signs, nurses notes, radiologic studies, CT scan. pkl 09/18 00:43 Order name: CT Head C Spine pkl 09/18 00:43 Order name: CT Facial Bones W/O Con pkl Administered Medications: No medications were administered Disposition: 09/18/18 02:13 Discharged to Home. Impression: Facial contusion. S/P Fall. - Condition is Stable. - Medication Reconciliation Form, Thank You Letter, Antibiotic Education, Prescription Opioid Use form. - Follow up: Yvonne Nye MD; When: 1 - 2 days; Reason: Re-evaluation by your physician. - Problem is new. - Symptoms have improved. Signatures: Dispatcher [employer] EDMS Juliana Agee RN RN aa1 Miguel Angel Patel MD MD pk Lisa Everett RN RN lp1 Corrections: (The following items were deleted from the chart) 02:33 02:13 09/18/2018 02:13 Discharged to Home. Impression: Facial contusion. S/P Fall. lp1 Condition is Stable. Forms are Medication Reconciliation Form, Thank You Letter, Antibiotic Education, Prescription Opioid Use. Follow up: Yvonne Nye; When: 1 - 2 days; Reason: Re-evaluation by your physician. Problem is new. Symptoms have improved. pkl
[2018-09-18 03:03] VITALS: TEMP 97.6
[2018-09-18 03:15] VITALS: BP 132/70; O2SAT 97
--- NOTE | 2018-09-18 20:53 | RAD REPORT ---
EXAM DESCRIPTION: CT - Facial Bones W/ Mpr - 09/18/2018 6:45 am CLINICAL HISTORY: The patient is 72 years old and is Female; ecchymosis, fall TECHNIQUE: Axial computed tomography images of the face with intravenous contrast. Sagittal and coronal reformat bird images were created and reviewed. This CT exam was performed using one or more of the following d ose reduction techniques: Automated exposure control, adjustment of the mA and/or kV according to pat ient size, and/or use of iterative reconstruction technique. COMPARISON: No relevant prior studies available. FINDINGS: Bones/joints: The orbital floors and romero are intact. The zygomatic arches and pterygoid plates are intact. Suggestion of prior fracture of the right zygom a is noted. The visualized maxilla and mandible are intact. Soft tissues: Unremarkable. Orbits: The globes, extra ocular muscles, and optic nerve complexes are within normal limits. Sinuses: The visualized paranasal sinuses are clear. No air fluid levels. Nasal cavity/septum: The nasal bones are intact. IMPRESSION: No acute findings. 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 The interpreting radiologist is f ully responsible for the content of the report.
--- NOTE | 2018-09-18 21:58 | RAD REPORT ---
EXAM DESCRIPTION: CT - Head C Spine Mpr Wo Con - 09/18/2018 6:46 am CLINICAL HISTORY: The patient is 72 years olf and is Female; fall COMPARISON: No relevant prior studies available. FINDINGS: Brain: There is diffuse cerebral atrophy present, consistent with this patient's age. Ther e is patchy hypo attenuation of the deep white matter which is non specific, but most likely owing to chronic small vessel ischemic change of a patient in this age group. No intracranial hemorrhage, mas s effect or midline shift is seen. There are no extra-axial fluid collections. Ventricles: There is diffuse prominence of the ventricles, which is likely related to central atrophy . Skull: No acute fracture. Sinuses: Unremarkable as visualized. No acute sinusitis. Mastoid air cells: Unremarkable as visualized. No mastoid effusion. Vertebrae: Reversal of the normal cervical curvature is present. The vertebral body heights and align ment are maintained. There is no acute fracture. Disc/spinal canal/neural foramina: Extensive facet arthropathy is noted bilaterally. Mild multi-level intervertebral disc space narrowing is present. There is no significant canal stenosis. Multi-level neural foraminal narrowing is present. Soft tissues: Left frontal scalp front tissue swelling/hematoma formation is present. Lung apices: The lung apices are clear. IMPRESSION: 1. No acute intracranial findings. Left frontal scalp soft tissue swelling/hematoma. 2. Reversal of the normal cervical curvature is present. Findings may be secondary to patient positio timmy versus muscle spasm. Electronically signed by Alissa Mckeon MD 09/18/2018 12:33 AM CONE WORKER Due to temporary technical issues with the PACS/Fluency reporting system, reports are being signed by the in house radiologist as a courtesy to ensure prompt reporting. The interpreting radiologist is f ayanly responsible for the content of the report.
== END 2018-09-18 02:33 | disposition home or self-care (01) ==
LOC: ER 00:28
DX: S00.12XA Contusion of left eyelid and periocular area, initial encounter (principal); S00.11XA Contusion of right eyelid and periocular area, initial encounter; W05.0XXA Fall from non-moving wheelchair, initial encounter; I48.91 Unspecified atrial fibrillation; E03.9 Hypothyroidism, unspecified; Z79.01 Long term (current) use of anticoagulants
CPT/HCPCS: 70450; 70486; 72125; 76377; 99284